=== PATIENT | female | born 1940 | race Caucasian/White ===

== ENCOUNTER 2017-07-13 14:49 | Inpatient (IN) | payer MEDICARE, OTHER, MEDICAID ==
[2017-07-13] MEDS ORDERED: Maalox 30 mL Cup PO PRN (16:26)
[2017-07-13] MEDS ORDERED: Magnesium Hydroxide (MOM) 30 mL UDC PO PRN (16:26)
[2017-07-13 16:30] VITALS: BP 117/59
--- NOTE | 2017-07-13 18:31 | Internal Medicine Prog Note ---
Internal Medicine Objective - Physical Exam Vitals and I&O: Vital Signs Temp 98.7 F 07/13/17 16:19 Pulse 60 07/13/17 16:19 Resp 18 07/13/17 16:19 BP 117/59 07/13/17 16:30 Pulse Ox 94 07/13/17 16:19 Intake & Output 07/12/17 07/13/17 07/13/17 18:59 06:59 18:59 Weight (lbs) 89.902 kg Active Medications: Current Medications Acetaminophen (Tylenol) 650 mg PO Q4HR PRN PRN Reason: Mild Pain / Temp above 100 Stop: 09/11/17 16:25 Al Hydrox/Mg Hydrox/Simethicone (Maalox) 30 ml PO Q4HR PRN PRN Reason: GI DISTRESS Stop: 09/11/17 16:25 Lorazepam (Ativan) 0.5 mg PO Q4HR PRN; Protocol PRN Reason: Agitation Stop: 08/12/17 16:25 Magnesium Hydroxide (Milk Of Magnesia) 30 ml PO HS PRN PRN Reason: Constipation Multivitamins/Vitamin C (Theragran) 1 tab PO DAILY SHE Stop: 09/12/17 08:59 - Procedures Procedures: Procedures Procedure Code Date GROUP PSYCHOTHERAPY 43676 08/24/15 GROUP PSYCHOTHERAPY GZHZZZZ 08/24/15 INDIVID PSYCHOTHERAP NEC 94.39 02/21/09 OTHER GROUP THERAPY 94.44 02/21/09 RECREATIONAL THERAPY 93.81 02/21/09
--- NOTE | 2017-07-14 00:41 | Progress Notes ---
DATE: 07/13/2017 Case was discussed with staff of the patient, reviewed records. The patient continues to be confused, unable to participate in meaningful conversation or make safe plan for self-care, unpredictable and impulsive. She will be transferred today to [facility] and we will continue her on same medication. Thank you very much for allowing me to participate in the care of this most interesting lady. JOB# [id number]
[2017-07-14] MEDS: Oxybutynin Chloride 5 mg ER Tab PO SCH (09:49)
[2017-07-14] MEDS: Multivitamin Tab PO SCH (09:49)
--- NOTE | 2017-07-14 11:04 | Internal Medicine Prog Note ---
Internal Medicine Subjective - Subjective Service Date: 07/14/17 Patient seen and examined:: without staff Patient is:: in bed, confused Per staff patient has:: no adverse event Internal Medicine Objective - Physical Exam Vitals and I&O: Vital Signs Temp 98.2 F 07/14/17 06:19 Pulse 59 07/14/17 06:19 Resp 20 07/14/17 06:19 BP 107/61 07/14/17 06:19 Pulse Ox 96 07/14/17 06:19 Intake & Output 07/13/17 07/14/17 07/14/17 18:59 06:59 18:59 Weight (lbs) 89.902 kg Other: # Voids 3 # Bowel Movements 0 Active Medications: Current Medications Acetaminophen (Tylenol) 650 mg PO Q4HR PRN PRN Reason: Mild Pain / Temp above 100 Stop: 09/11/17 16:25 Al Hydrox/Mg Hydrox/Simethicone (Maalox) 30 ml PO Q4HR PRN PRN Reason: GI DISTRESS Stop: 09/11/17 16:25 Docusate Sodium (Colace) 100 mg PO DAILY [facility] Stop: 09/12/17 08:59 Last Admin: 07/14/17 09:49 Dose: 100 mg Donepezil HCl (Aricept) 10 mg PO DAILY SHE Stop: 09/12/17 08:59 Last Admin: 07/14/17 09:49 Dose: 10 mg Escitalopram Oxalate (Lexapro) 10 mg PO DAILY SHE PRN Reason: Protocol Stop: 09/12/17 08:59 Levetiracetam (Keppra) 500 mg PO BID SHE Stop: 09/12/17 08:59 Last Admin: 07/14/17 09:49 Dose: 500 mg Lorazepam (Ativan) 0.5 mg PO Q4HR PRN; Protocol PRN Reason: Agitation Stop: 08/12/17 16:25 Magnesium Hydroxide (Milk Of Magnesia) 30 ml PO HS PRN PRN Reason: Constipation Mirtazapine (Remeron) 7.5 mg PO HS SHE PRN Reason: Protocol Stop: 09/11/17 20:59 Multivitamins/Vitamin C (Theragran) 1 tab PO DAILY SHE Stop: 09/12/17 08:59 Last Admin: 07/14/17 09:49 Dose: 1 tab Oxybutynin Chloride (Ditropan Xl) 5 mg PO DAILY SHE Stop: 09/12/17 08:59 Last Admin: 07/14/17 09:49 Dose: 5 mg Valproate Sodium (Depakene) 500 mg PO BID SHE PRN Reason: Protocol Stop: 09/12/17 08:59 Zolpidem Tartrate (Ambien) 5 mg PO HS PRN PRN Reason: Insomnia Stop: 09/11/17 18:23 General: demented HEENT: NC/AT, PERRLA, anicteric sclerae, throat clear Neck: Supple Lungs: CTAB, congested Cardiovascular: Normal S1, Normal S2, without murmur Abdomen: non-tender, non-distended Extremities: clear Neurological: no change - Procedures Procedures: Procedures Procedure Code Date GROUP PSYCHOTHERAPY 03481 08/24/15 GROUP PSYCHOTHERAPY GZHZZZZ 08/24/15 INDIVID PSYCHOTHERAP NEC 94.39 02/21/09 OTHER GROUP THERAPY 94.44 02/21/09 RECREATIONAL THERAPY 93.81 02/21/09
--- NOTE | 2017-07-14 12:25 | Psychosocial Evaluation ---
DATE OF SERVICE: 07/13/2017 IDENTIFYING INFORMATION: The patient is a 77-year-old female. CHIEF COMPLAINT: No answer. HISTORY OF PRESENT ILLNESS: The patient was transferred from the medical floor, I saw there. She was admitted there initially though she was sent here because of agitation and psychosis. The patient was seen there by Dr. Alexandra where she was medically cleared, she was referred here. The patient was unable to present a meaningful conversation. She is a well-known patient and was seen before many times with diagnosis of dementia and depression. PAST PSYCHIATRIC HISTORY: Multiple prior admissions to this facility for similar reason. MEDICAL HISTORY: Deferred to Dr. Alexandra. ALLERGIC: SHE IS ALLERGIC TO CIPRO, DIPHENHYDRAMINE, AND PSEUDOEPHEDRINE. Patient also has seizure disorder. MEDICATIONS: She is on Keppra. She is on Lexapro 10 mg a day, Aricept 10 mg daily. She is also on Tylenol 650 mg every 4 hours as needed and Keppra 500 mg twice a day, ____ twice as needed, magnesium 50 mL as needed at bedtime. The patient is also on Remeron 75 mg at bedtime, multivitamin 1 tablet daily. She is on oxybutynin 5 mg daily and Depakote 500 mg twice a day and Ambien 5 mg at bedtime as needed for lack of sleep. FAMILY AND SOCIAL HISTORY: The patient has been staying at [facility]. She has been to many different nursing facilities. MENTAL STATUS EXAMINATION: The patient was appropriately dressed, not very groomed. She was in bed, alert, but she was staring at me and unable to answer any of my questions, demented, confused, easily agitated. She would not answer any of my question regarding suicide, homicide, but she has been tend to get agitated easily. I was unable to test her memory. She is demented with poor memory. Her insight and judgment is impaired. She denies any auditory or visual hallucination or paranoia. 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 MEDICAL DIAGNOSES: Deferred to the medical doctor. Her asset, accepting treatment. Negative poor coping skills. INITIAL TREATMENT PLAN: Continue treatment. Continue medication, group therapy, milieu therapy. ESTIMATED LENGTH OF STAY: 3-7 days. DISCHARGE CRITERIA: Decrease depression, no longer agitated after discharge. [facility]# [id number]
--- NOTE | 2017-07-14 14:28 | History & Physical ---
ADMIT DATE: 07/14/2017 HISTORY OF PRESENT ILLNESS: The patient is a 77-year-old female with long history of dementia, seizure disorder, degenerative joint disease, chronic constipation, admitted to [facility] under Dr. Tillman's service. No fever, no chills, no nausea, no vomiting. PAST MEDICAL HISTORY: Significant for seizure disorder, dementia, degenerative joint disease, chronic constipation. PAST SURGICAL HISTORY: No recent surgery. ALLERGIES: CIPRO, FLOXACIN, DIPHENHYDRAMINE, PSEUDOEPHEDRINE. MEDICATIONS: Follow admission reconciliation. SOCIAL HISTORY: No smoking, alcohol or drug use. FAMILY HISTORY: Noncontributory. REVIEW OF SYSTEMS: RENAL SYSTEM: No history of chronic renal disorder. CARDIOVASCULAR SYSTEM: No coronary artery disease. ENDOCRINE SYSTEM: No diabetes or thyroid problem. GASTROINTESTINAL: No upper or lower GI bleeding. She has history of chronic constipation. NEUROLOGICAL: She has history of seizure disorder, dementia. SKELETOMUSCULAR SYSTEM: She has degenerative joint disease. RESPIRATORY SYSTEM: No asthma. HEMATOLOGIC: No bleeding tendency. GENITOURINARY: No dysuria or hematuria. PHYSICAL EXAMINATION: GENERAL: She is awake, not coherent. VITAL SIGNS: Temperature 98.2, heart rate is 59, blood pressure 107/61. HEENT: Normocephalic. Pupils reacting to light and accommodation. Sclerae clear. NECK: Supple. Negative for lymphadenopathy, JVD or bruit. CHEST: Bilateral normal, rhonchi or wheezing. HEART: S1, S2 normal. No murmur or gallop rhythm. ABDOMEN: Soft, bowel sounds positive. EXTREMITIES: No edema. NEUROLOGIC: She is awake, alert, mildly confused. No focal motor or sensory deficit. Cranial nerves 1-12 intact. ASSESSMENT: 1. Seizure disorder. 2. Degenerative joint disease. 3. Chronic constipation. 4. Dementia. PLAN: The patient in the hospital under Dr. Tillman's service. MEDICAL PROBLEM ADDRESSED DURING HOSPITALIZATION: Dementia. MEDICAL PROBLEMS TO BE ADDRESSED AT DISCHARGE: Seizure disorder, degenerative joint disease. The patient is medically stable for activity. Thank Dr. Tillman for asking me to see your patient. JOB# [id number]
[2017-07-15] MEDS: Multivitamin Tab PO SCH (08:32)
[2017-07-15] MEDS: Oxybutynin Chloride 5 mg ER Tab PO SCH (08:32)
--- NOTE | 2017-07-15 12:33 | Progress Notes ---
DATE: 07/15/2017 Case was discussed with staff of the patient, reviewed records. The patient has been talking nonsense. She has been paranoid, irritable, needing redirection and the staff where she has been talking to herself. When I talked to her, she wanted to know where is the door to the facility. The patient is sort of psychotic. She is unable to participate in a meaningful conversation or make safe plan for self-care. She has been compliant with the medication with no side effects, no sedation, no nausea, no extrapyramidal symptoms. Her lab work showed her low CBC with low red cells, low hematocrit, high MCV and high MCH. The rest are within normal range. PT within normal range. Chemistry panel with low anion gap and high blood chloride and low total protein and low albumin and low AST and ALT and the rest within normal range. Chemistry lipid profile within normal range. ____ is low at 15, repeated. Chemistry panel shows almost the same and ____. Urinalysis showed moderate leukocytic esterase and white cells and bacteria. I will be checking her Depakote level. The patient's current medication is donepezil 10 mg at bedtime, Lexapro 10 mg daily, Keppra 500 mg twice a day and Ativan 0.5 mg if needed, Remeron 7.5 mg twice a day, oxybutynin and multivitamin, Depakote 500 mg twice a day and I do not see that she is taking any antibiotic and I will check with the staff to see if as needed. Left a message to Dr. Alexandra regarding that and we will continue to work with the patient in group therapy, milieu therapy, adjust the medication as needed. JOB# [id number]
--- NOTE | 2017-07-15 20:04 | Internal Medicine Prog Note ---
Internal Medicine Subjective - Subjective Service Date: 07/15/17 Patient seen and examined:: without staff Patient is:: in bed, confused Per staff patient has:: no adverse event Internal Medicine Objective - Results Recent Labs: Laboratory Last Values Valproic Acid 52.4 ug/mL (50.0-100.0) 07/15/17 11:05 - Physical Exam Vitals and I&O: Vital Signs Temp 97.9 F 07/15/17 14:00 Pulse 65 07/15/17 14:00 Resp 20 07/15/17 14:00 BP 120/71 07/15/17 14:00 Pulse Ox 96 07/15/17 14:00 Intake & Output 07/15/17 07/15/17 07/16/17 06:59 18:59 06:59 Intake Total 120 1200 Balance 120 1200 Intake: Oral 120 1200 Other: # Voids 3 Active Medications: Current Medications Acetaminophen (Tylenol) 650 mg PO Q4HR PRN PRN Reason: Mild Pain / Temp above 100 Stop: 09/11/17 16:25 Al Hydrox/Mg Hydrox/Simethicone (Maalox) 30 ml PO Q4HR PRN PRN Reason: GI DISTRESS Stop: 09/11/17 16:25 Docusate Sodium (Colace) 100 mg PO DAILY [facility] Stop: 09/12/17 08:59 Last Admin: 07/15/17 08:32 Dose: 100 mg Donepezil HCl (Aricept) 10 mg PO DAILY [facility] Stop: 09/12/17 08:59 Last Admin: 07/15/17 08:32 Dose: 10 mg Escitalopram Oxalate (Lexapro) 10 mg PO DAILY SHE PRN Reason: Protocol Stop: 09/12/17 08:59 Last Admin: 07/15/17 08:32 Dose: 10 mg Levetiracetam (Keppra) 500 mg PO BID [facility] Stop: 09/12/17 08:59 Last Admin: 07/15/17 16:03 Dose: 500 mg Lorazepam (Ativan) 0.5 mg PO Q4HR PRN; Protocol PRN Reason: Agitation Stop: 08/12/17 16:25 Last Admin: 07/15/17 14:44 Dose: 0.5 mg Magnesium Hydroxide (Milk Of Magnesia) 30 ml PO HS PRN PRN Reason: Constipation Mirtazapine (Remeron) 7.5 mg PO HS SHE PRN Reason: Protocol Stop: 09/11/17 20:59 Multivitamins/Vitamin C (Theragran) 1 tab PO DAILY SHE Stop: 09/12/17 08:59 Last Admin: 07/15/17 08:32 Dose: 1 tab Oxybutynin Chloride (Ditropan Xl) 5 mg PO DAILY SHE Stop: 09/12/17 08:59 Last Admin: 07/15/17 08:32 Dose: 5 mg Valproate Sodium (Depakene) 500 mg PO BID SHE PRN Reason: Protocol Stop: 09/12/17 08:59 Last Admin: 07/15/17 16:03 Dose: 500 mg Zolpidem Tartrate (Ambien) 5 mg PO HS PRN PRN Reason: Insomnia Stop: 09/11/17 18:23 General: demented HEENT: NC/AT, PERRLA, anicteric sclerae, throat clear Neck: Supple Lungs: CTAB, congested Cardiovascular: Normal S1, Normal S2, without murmur Abdomen: non-tender, non-distended Extremities: clear Neurological: no change - Procedures Procedures: Procedures Procedure Code Date GROUP PSYCHOTHERAPY 86520 08/24/15 GROUP PSYCHOTHERAPY GZHZZZZ 08/24/15 INDIVID PSYCHOTHERAP NEC 94.39 02/21/09 OTHER GROUP THERAPY 94.44 02/21/09 RECREATIONAL THERAPY 93.81 02/21/09 Internal Medicine Assmt/Plan - Assessment Assessment: 1.SEIZURE DISORDER. 2.CHRONIC CONSTIPATION. 3.DJD. 4.DEMENTIA. - Plan Plan: CONTONUE ON CURRENT MEDICATION AND DIET.
[2017-07-16] MEDS: Multivitamin Tab PO SCH (08:43)
[2017-07-16] MEDS: Oxybutynin Chloride 5 mg ER Tab PO SCH (08:43)
--- NOTE | 2017-07-16 14:40 | Progress Notes ---
DATE: 07/16/2017 Case was discussed with staff of the patient, reviewed records. The patient continues to be very irritable, talking to herself. Continues to be confused, demented. Continues to be unable to participate in a meaningful conversation or make safe plan for self-care. Continues to have poor insight. She is on Depakote 500 mg twice a day, Remeron 7.5 mg at bedtime, oxybutynin 5 mg daily, Keppra 500 mg twice a day, Aricept 10 mg at bedtime. No side effects of the medication, no sedation, no nausea, no extrapyramidal symptoms. I am giving her more time before adding any antipsychotic hopefully this may have been because of her having urinary infection and I will continue to work with the patient in group therapy, milieu therapy, adjust medication as needed. JOB# [id number]
--- NOTE | 2017-07-16 17:10 | Internal Medicine Prog Note ---
Internal Medicine Subjective - Subjective Service Date: 07/16/17 Patient seen and examined:: without staff Patient is:: in bed, confused Per staff patient has:: no adverse event Internal Medicine Objective - Results Recent Labs: Laboratory Last Values Valproic Acid 52.4 ug/mL (50.0-100.0) 07/15/17 11:05 - Physical Exam Vitals and I&O: Vital Signs Temp 98.2 F 07/16/17 14:00 Pulse 58 07/16/17 14:00 Resp 18 07/16/17 14:00 BP 109/65 07/16/17 14:00 Pulse Ox 95 07/16/17 14:00 Intake & Output 07/15/17 07/16/17 07/16/17 18:59 06:59 18:59 Intake Total 1200 180 Balance 1200 180 Intake: Oral 1200 180 Other: # Voids 2 Active Medications: Current Medications Acetaminophen (Tylenol) 650 mg PO Q4HR PRN PRN Reason: Mild Pain / Temp above 100 Stop: 09/11/17 16:25 Al Hydrox/Mg Hydrox/Simethicone (Maalox) 30 ml PO Q4HR PRN PRN Reason: GI DISTRESS Stop: 09/11/17 16:25 Docusate Sodium (Colace) 100 mg PO DAILY [facility] Stop: 09/12/17 08:59 Last Admin: 07/16/17 08:43 Dose: 100 mg Donepezil HCl (Aricept) 10 mg PO DAILY [facility] Stop: 09/12/17 08:59 Last Admin: 07/16/17 08:43 Dose: 10 mg Escitalopram Oxalate (Lexapro) 10 mg PO DAILY SHE PRN Reason: Protocol Stop: 09/12/17 08:59 Last Admin: 07/16/17 08:43 Dose: 10 mg Levetiracetam (Keppra) 500 mg PO BID [facility] Stop: 09/12/17 08:59 Last Admin: 07/16/17 16:47 Dose: 500 mg Lorazepam (Ativan) 0.5 mg PO Q4HR PRN; Protocol PRN Reason: Agitation Stop: 08/12/17 16:25 Last Admin: 07/15/17 14:44 Dose: 0.5 mg Magnesium Hydroxide (Milk Of Magnesia) 30 ml PO HS PRN PRN Reason: Constipation Mirtazapine (Remeron) 7.5 mg PO HS SHE PRN Reason: Protocol Stop: 09/11/17 20:59 Last Admin: 07/15/17 20:55 Dose: 7.5 mg Multivitamins/Vitamin C (Theragran) 1 tab PO DAILY SHE Stop: 09/12/17 08:59 Last Admin: 07/16/17 08:43 Dose: 1 tab Oxybutynin Chloride (Ditropan Xl) 5 mg PO DAILY SHE Stop: 09/12/17 08:59 Last Admin: 07/16/17 08:43 Dose: 5 mg Valproate Sodium (Depakene) 500 mg PO BID SHE PRN Reason: Protocol Stop: 09/12/17 08:59 Last Admin: 07/16/17 16:47 Dose: 500 mg Zolpidem Tartrate (Ambien) 5 mg PO HS PRN PRN Reason: Insomnia Stop: 09/11/17 18:23 General: demented HEENT: NC/AT, PERRLA, anicteric sclerae, throat clear Neck: Supple Lungs: CTAB, congested Cardiovascular: Normal S1, Normal S2, without murmur Abdomen: non-tender, non-distended Extremities: clear Neurological: no change - Procedures Procedures: Procedures Procedure Code Date GROUP PSYCHOTHERAPY 31018 08/24/15 GROUP PSYCHOTHERAPY GZHZZZZ 08/24/15 INDIVID PSYCHOTHERAP NEC 94.39 02/21/09 OTHER GROUP THERAPY 94.44 02/21/09 RECREATIONAL THERAPY 93.81 02/21/09 Internal Medicine Assmt/Plan - Assessment Assessment: 1.SEIZURE DISORDER. 2.CHRONIC CONSTIPATION. 3.DJD. 4.DEMENTIA. - Plan Plan: CONTONUE ON CURRENT MEDICATION AND DIET.
[2017-07-17] MEDS: Oxybutynin Chloride 5 mg ER Tab PO SCH (08:25)
[2017-07-17] MEDS: Multivitamin Tab PO SCH (08:25)
--- NOTE | 2017-07-17 19:51 | Internal Medicine Prog Note ---
Internal Medicine Subjective - Subjective Service Date: 07/17/17 Patient seen and examined:: without staff Patient is:: in bed, confused Per staff patient has:: no adverse event Internal Medicine Objective - Results Recent Labs: Laboratory Last Values POC Glucose Cancelled 07/16/17 17:32 Valproic Acid 52.4 ug/mL (50.0-100.0) 07/15/17 11:05 - Physical Exam Vitals and I&O: Vital Signs Temp 97.8 F 07/17/17 14:00 Pulse 60 07/17/17 14:00 Resp 19 07/17/17 14:00 BP 122/56 07/17/17 14:00 Pulse Ox 97 07/17/17 14:00 Intake & Output 07/17/17 07/17/17 07/18/17 06:59 18:59 06:59 Intake Total 1200 Balance 1200 Intake: Oral 1200 Other: # Bowel Movements 1 Active Medications: Current Medications Acetaminophen (Tylenol) 650 mg PO Q4HR PRN PRN Reason: Mild Pain / Temp above 100 Stop: 09/11/17 16:25 Al Hydrox/Mg Hydrox/Simethicone (Maalox) 30 ml PO Q4HR PRN PRN Reason: GI DISTRESS Stop: 09/11/17 16:25 Docusate Sodium (Colace) 100 mg PO DAILY [facility] Stop: 09/12/17 08:59 Last Admin: 07/17/17 08:25 Dose: 100 mg Donepezil HCl (Aricept) 10 mg PO DAILY [facility] Stop: 09/12/17 08:59 Last Admin: 07/17/17 08:25 Dose: 10 mg Escitalopram Oxalate (Lexapro) 10 mg PO DAILY SHE PRN Reason: Protocol Stop: 09/12/17 08:59 Last Admin: 07/17/17 08:25 Dose: 10 mg Levetiracetam (Keppra) 500 mg PO BID [facility] Stop: 09/12/17 08:59 Last Admin: 07/17/17 16:31 Dose: 500 mg Lorazepam (Ativan) 0.5 mg PO Q4HR PRN; Protocol PRN Reason: Agitation Stop: 08/12/17 16:25 Last Admin: 07/17/17 16:31 Dose: 0.5 mg Magnesium Hydroxide (Milk Of Magnesia) 30 ml PO HS PRN PRN Reason: Constipation Mirtazapine (Remeron) 7.5 mg PO HS SHE PRN Reason: Protocol Stop: 09/11/17 20:59 Last Admin: 07/16/17 21:27 Dose: 7.5 mg Multivitamins/Vitamin C (Theragran) 1 tab PO DAILY [facility] Stop: 09/12/17 08:59 Last Admin: 07/17/17 08:25 Dose: 1 tab Oxybutynin Chloride (Ditropan Xl) 5 mg PO DAILY [facility] Stop: 09/12/17 08:59 Last Admin: 07/17/17 08:25 Dose: 5 mg Valproate Sodium (Depakene) 500 mg PO BID SHE PRN Reason: Protocol Stop: 09/12/17 08:59 Last Admin: 07/17/17 16:31 Dose: 500 mg Zolpidem Tartrate (Ambien) 5 mg PO HS PRN PRN Reason: Insomnia Stop: 09/11/17 18:23 General: demented HEENT: NC/AT, PERRLA, anicteric sclerae, throat clear Neck: Supple Lungs: CTAB, congested Cardiovascular: Normal S1, Normal S2, without murmur Abdomen: non-tender, non-distended Extremities: clear Neurological: no change - Procedures Procedures: Procedures Procedure Code Date GROUP PSYCHOTHERAPY 51007 08/24/15 GROUP PSYCHOTHERAPY GZHZZZZ 08/24/15 INDIVID PSYCHOTHERAP NEC 94.39 02/21/09 OTHER GROUP THERAPY 94.44 02/21/09 RECREATIONAL THERAPY 93.81 02/21/09 Internal Medicine Assmt/Plan - Assessment Assessment: 1.SEIZURE DISORDER. 2.CHRONIC CONSTIPATION. 3.DJD. 4.DEMENTIA. - Plan Plan: CONTONUE ON CURRENT MEDICATION AND DIET. Nutritional Asmnt/Malnutr-PDOC - Dietary Evaluation Malnutrition Findings (Please click <Entered> for more info): Nutritional Asmnt/Malnutrition Start: 07/17/17 14: 33 Text: Status: Complete Freq: Document 07/17/17 14:33 MAULIKG (Rec: 07/17/17 14:40 LCTAMARAG [id number]) Nutritional Asmnt/Malnutrition Patient General Information Nutritional Screening Moderate Risk Diagnosis psychosis Pertinent Medical Hx/Surgical Hx dementia, seizure disorder, DJD, chronic constipation Subjective Information pt seen sitting in bed, awake and alert, working on lunch tray during the time of visit. Pt reported good appetite, loves all kinds of food. Pt appeared obese, having mild muscle wasting on arms. Current Diet Order/ Nutrition Support [facility] soft chopped Pertinent Medications colace, remeron, MVI, vit C Pertinent Labs no nutrition related labs Nutritional Hx/Data Height 1.6 m Height (Calculated Centimeters) 160.0 Current Weight (lbs) 89.902 kg Weight (Calculated Kilograms) 89.9 Weight (Calculated Grams) 26268.0 [place] Body Weight 115 % [place] Body Weight 172 Body Mass Index (BMI) 35.1 Weight Status Obese GI Symptoms GI Symptoms None Difficult in: None Skin Integrity/Comment: blackened skin tear to left elbow Current %PO Good (75-100%) Estimated Nutritional Goals BEE in Kcals: Adj wt of IBW Calories/Kcals/Kg 25-30 Kcals Calculated 1550-1860kcal based on adj wt 62kg Protein: Adj wt of IBW Protein g/k Protein Calculated 62 Fluid: ml [id number] Nutritional Problem 1. Problem Problem obesity Etiology ?imbalanced energy intake Signs/Symptoms: BMI 35 Malnutrition Alert Protein-Calorie Malnutrition N/A Is there a minimum of two criteria No selected? Query Text:Check all the applicable criteria. A minimum of two criteria are recommended for diagnosis of either severe or non-severe malnutrition. Intervention/Recommendation Comments 1. Continue with current diet as ordered. 2. Monitor PO intake, wt weekly, labs and skin integrity 3. F/U as low risk in 7 days, 07/24 Expected Outcomes/Goals Expected Outcomes/Goals 1. PO intake to meet at least 75% of nutritional needs. 2. Wt stability, skin to remain intact
--- NOTE | 2017-07-18 06:59 | Progress Notes ---
DATE: 07/17/2017 HISTORY OF PRESENT ILLNESS: The patient is currently in the hospital, transferred from the medical floor with agitation, psychosis, unable to present with meaningful conversation, disoriented, confused, states that she does not know where she is or why she is here, states she is here because of "I am here to learn," disoriented. Dr. Tillman has been seeing the patient since her admission and noted to be irritable, talking to self, confused, disoriented. MEDICATIONS: Noted including dosages and frequencies. No side effects noted. ASSESSMENT: The patient remains confused, disoriented, concerns about impulsivity. PLAN: We will continue to monitor. Continue current medication regimen given recent dose changes by Dr. Tillman. We will monitor and follow up. [facility]# [id number]
[2017-07-18] MEDS: Oxybutynin Chloride 5 mg ER Tab PO SCH (09:10)
[2017-07-18] MEDS: Multivitamin Tab PO SCH (09:10)
--- NOTE | 2017-07-18 12:55 | Internal Medicine Prog Note ---
Internal Medicine Subjective - Subjective Service Date: 07/18/17 Patient seen and examined:: without staff Patient is:: in bed, confused Per staff patient has:: no adverse event Internal Medicine Objective - Results Recent Labs: Laboratory Last Values POC Glucose Cancelled 07/16/17 17:32 Valproic Acid 52.4 ug/mL (50.0-100.0) 07/15/17 11:05 - Physical Exam Vitals and I&O: Vital Signs Temp 98.1 F 07/17/17 20:13 Pulse 52 07/18/17 11:27 Resp 19 07/18/17 11:27 BP 121/51 07/17/17 20:13 Pulse Ox 97 07/17/17 20:13 Intake & Output 07/17/17 07/18/17 07/18/17 18:59 06:59 18:59 Intake Total 1200 240 Balance 1200 240 Intake: Oral 1200 240 Other: # Voids 1 # Bowel Movements 1 Stool Characteristics Soft Formed Active Medications: Current Medications Acetaminophen (Tylenol) 650 mg PO Q4HR PRN PRN Reason: Mild Pain / Temp above 100 Stop: 09/11/17 16:25 Al Hydrox/Mg Hydrox/Simethicone (Maalox) 30 ml PO Q4HR PRN PRN Reason: GI DISTRESS Stop: 09/11/17 16:25 Docusate Sodium (Colace) 100 mg PO DAILY [facility] Stop: 09/12/17 08:59 Last Admin: 07/18/17 09:10 Dose: 100 mg Donepezil HCl (Aricept) 10 mg PO DAILY [facility] Stop: 09/12/17 08:59 Last Admin: 07/18/17 09:09 Dose: 10 mg Escitalopram Oxalate (Lexapro) 10 mg PO DAILY SHE PRN Reason: Protocol Stop: 09/12/17 08:59 Last Admin: 07/18/17 09:10 Dose: 10 mg Levetiracetam (Keppra) 500 mg PO BID [facility] Stop: 09/12/17 08:59 Last Admin: 07/18/17 09:09 Dose: 500 mg Lorazepam (Ativan) 0.5 mg PO Q4HR PRN; Protocol PRN Reason: Agitation Stop: 08/12/17 16:25 Last Admin: 07/17/17 20:32 Dose: 0.5 mg Magnesium Hydroxide (Milk Of Magnesia) 30 ml PO HS PRN PRN Reason: Constipation Mirtazapine (Remeron) 7.5 mg PO HS SHE PRN Reason: Protocol Stop: 09/11/17 20:59 Last Admin: 07/17/17 20:33 Dose: 7.5 mg Multivitamins/Vitamin C (Theragran) 1 tab PO DAILY SHE Stop: 09/12/17 08:59 Last Admin: 07/18/17 09:10 Dose: Not Given Oxybutynin Chloride (Ditropan Xl) 5 mg PO DAILY [facility] Stop: 09/12/17 08:59 Last Admin: 07/18/17 09:10 Dose: 5 mg Valproate Sodium (Depakene) 500 mg PO BID SHE PRN Reason: Protocol Stop: 09/12/17 08:59 Last Admin: 07/18/17 09:09 Dose: 500 mg Zolpidem Tartrate (Ambien) 5 mg PO HS PRN PRN Reason: Insomnia Stop: 09/11/17 18:23 Last Admin: 07/17/17 20:33 Dose: 5 mg General: demented HEENT: NC/AT, PERRLA, anicteric sclerae, throat clear Neck: Supple Lungs: CTAB, congested Cardiovascular: Normal S1, Normal S2, without murmur Abdomen: non-tender, non-distended Extremities: clear Neurological: no change - Procedures Procedures: Procedures Procedure Code Date GROUP PSYCHOTHERAPY 66901 08/24/15 GROUP PSYCHOTHERAPY GZHZZZZ 08/24/15 INDIVID PSYCHOTHERAP NEC 94.39 02/21/09 OTHER GROUP THERAPY 94.44 02/21/09 RECREATIONAL THERAPY 93.81 02/21/09 Internal Medicine Assmt/Plan - Assessment Assessment: 1.SEIZURE DISORDER. 2.CHRONIC CONSTIPATION. 3.DJD. 4.DEMENTIA. - Plan Plan: CONTONUE ON CURRENT MEDICATION AND DIET. Nutritional Asmnt/Malnutr-PDOC - Dietary Evaluation Malnutrition Findings (Please click <Entered> for more info): Nutritional Asmnt/Malnutrition Start: 07/17/17 14: 33 Text: Status: Complete Freq: Document 07/17/17 14:33 MAULIKG (Rec: 07/17/17 14:40 LCHENG [email or web address]) Nutritional Asmnt/Malnutrition Patient General Information Nutritional Screening Moderate Risk Diagnosis psychosis Pertinent Medical Hx/Surgical Hx dementia, seizure disorder, DJD, chronic constipation Subjective Information pt seen sitting in bed, awake and alert, working on lunch tray during the time of visit. Pt reported good appetite, loves all kinds of food. Pt appeared obese, having mild muscle wasting on arms. Current Diet Order/ Nutrition Support [facility] soft chopped Pertinent Medications colace, remeron, MVI, vit C Pertinent Labs no nutrition related labs Nutritional Hx/Data Height 1.6 m Height (Calculated Centimeters) 160.0 Current Weight (lbs) 89.902 kg Weight (Calculated Kilograms) 89.9 Weight (Calculated Grams) 93559.0 [place] Body Weight 115 % [place] Body Weight 172 Body Mass Index (BMI) 35.1 Weight Status Obese GI Symptoms GI Symptoms None Difficult in: None Skin Integrity/Comment: blackened skin tear to left elbow Current %PO Good (75-100%) Estimated Nutritional Goals BEE in Kcals: Adj wt of IBW Calories/Kcals/Kg 25-30 Kcals Calculated 1550-1860kcal based on adj wt 62kg Protein: Adj wt of IBW Protein g/k Protein Calculated 62 Fluid: ml 8046-0363 Nutritional Problem 1. Problem Problem obesity Etiology ?imbalanced energy intake Signs/Symptoms: BMI 35 Malnutrition Alert Protein-Calorie Malnutrition N/A Is there a minimum of two criteria No selected? Query Text:Check all the applicable criteria. A minimum of two criteria are recommended for diagnosis of either severe or non-severe malnutrition. Intervention/Recommendation Comments 1. Continue with current diet as ordered. 2. Monitor PO intake, wt weekly, labs and skin integrity 3. F/U as low risk in 7 days, 07/24 Expected Outcomes/Goals Expected Outcomes/Goals 1. PO intake to meet at least 75% of nutritional needs. 2. Wt stability, skin to remain intact
--- NOTE | 2017-07-19 05:38 | Progress Notes ---
DATE: 07/18/[address] Tillman. SUBJECTIVE: The patient was seen and evaluated. The patient's chart reviewed. She is a 77-year-old female. Nursing staff reported the patient is selectively mute, disorganized, and easily agitated. Today, on [id number] evaluation, she still presents disorganized, disoriented, and talking to herself. MENTAL STATUS EXAMINATION: Disorganized, talking to herself. ASSESSMENT AND PLAN: The patient is a 77-year-old female who continues to be disorganized, confused, disoriented, and talking to herself. We will continue with the current medication regimen of Lexapro 10 mg a day, benazepril 10 mg a day, mirtazapine 7.5 mg recently adjusted. The patient has extensive history of depression. We will continue monitoring and evaluating as she is unable to formulate safe plan outside the structured environment. JOB# [id number]
[2017-07-19] MEDS: Oxybutynin Chloride 5 mg ER Tab PO SCH (08:52)
[2017-07-19] MEDS: Multivitamin Tab PO SCH (08:52)
--- NOTE | 2017-07-19 19:31 | Internal Medicine Prog Note ---
Internal Medicine Subjective - Subjective Service Date: 07/19/17 Patient seen and examined:: with staff Patient is:: in bed, confused Per staff patient has:: no adverse event Internal Medicine Objective - Results Recent Labs: Laboratory Last Values POC Glucose Cancelled 07/16/17 17:32 Valproic Acid 52.4 ug/mL (50.0-100.0) 07/15/17 11:05 - Physical Exam Vitals and I&O: Vital Signs Temp 98.2 F 07/18/17 20:18 Pulse 52 07/19/17 11:01 Resp 19 07/19/17 11:01 BP 122/66 07/18/17 20:18 Pulse Ox 96 07/18/17 20:18 Intake & Output 07/19/17 07/19/17 07/20/17 06:59 18:59 06:59 Intake Total 240 700 Balance 240 700 Intake: Oral 240 700 Other: # Voids 1 3 # Bowel Movements 1 Active Medications: Current Medications Acetaminophen (Tylenol) 650 mg PO Q4HR PRN PRN Reason: Mild Pain / Temp above 100 Stop: 09/11/17 16:25 Al Hydrox/Mg Hydrox/Simethicone (Maalox) 30 ml PO Q4HR PRN PRN Reason: GI DISTRESS Stop: 09/11/17 16:25 Docusate Sodium (Colace) 100 mg PO DAILY [facility] Stop: 09/12/17 08:59 Last Admin: 07/19/17 08:52 Dose: 100 mg Donepezil HCl (Aricept) 10 mg PO DAILY [facility] Stop: 09/12/17 08:59 Last Admin: 07/19/17 08:52 Dose: 10 mg Escitalopram Oxalate (Lexapro) 10 mg PO DAILY SHE PRN Reason: Protocol Stop: 09/12/17 08:59 Last Admin: 07/19/17 08:52 Dose: 10 mg Levetiracetam (Keppra) 500 mg PO BID [facility] Stop: 09/12/17 08:59 Last Admin: 07/19/17 08:52 Dose: 500 mg Lorazepam (Ativan) 0.5 mg PO Q4HR PRN; Protocol PRN Reason: Agitation Stop: 08/12/17 16:25 Last Admin: 07/17/17 20:32 Dose: 0.5 mg Magnesium Hydroxide (Milk Of Magnesia) 30 ml PO HS PRN PRN Reason: Constipation Mirtazapine (Remeron) 7.5 mg PO HS SHE PRN Reason: Protocol Stop: 09/11/17 20:59 Last Admin: 07/18/17 20:26 Dose: 7.5 mg Multivitamins/Vitamin C (Theragran) 1 tab PO DAILY [facility] Stop: 09/12/17 08:59 Last Admin: 07/19/17 08:52 Dose: 1 tab Oxybutynin Chloride (Ditropan Xl) 5 mg PO DAILY [facility] Stop: 09/12/17 08:59 Last Admin: 07/19/17 08:52 Dose: 5 mg Valproate Sodium (Depakene) 500 mg PO BID SHE PRN Reason: Protocol Stop: 09/12/17 08:59 Last Admin: 07/19/17 08:52 Dose: 500 mg Zolpidem Tartrate (Ambien) 5 mg PO HS PRN PRN Reason: Insomnia Stop: 09/11/17 18:23 Last Admin: 07/18/17 20:27 Dose: 5 mg General: demented HEENT: NC/AT, PERRLA, anicteric sclerae, throat clear Neck: Supple Lungs: CTAB, congested Cardiovascular: Normal S1, Normal S2, without murmur Abdomen: non-tender, non-distended Extremities: clear Neurological: no change - Procedures Procedures: Procedures Procedure Code Date GROUP PSYCHOTHERAPY 17629 08/24/15 GROUP PSYCHOTHERAPY GZHZZZZ 08/24/15 INDIVID PSYCHOTHERAP NEC 94.39 02/21/09 OTHER GROUP THERAPY 94.44 02/21/09 RECREATIONAL THERAPY 93.81 02/21/09 Internal Medicine Assmt/Plan - Assessment Assessment: 1.SEIZURE DISORDER. 2.CHRONIC CONSTIPATION. 3.DJD. 4.DEMENTIA. - Plan Plan: CONTONUE ON CURRENT MEDICATION AND DIET. Nutritional Asmnt/Malnutr-PDOC - Dietary Evaluation Malnutrition Findings (Please click <Entered> for more info): Nutritional Asmnt/Malnutrition Start: 07/17/17 14: 33 Text: Status: Complete Freq: Document 07/17/17 14:33 TAMARA (Rec: 07/17/17 14:40 TAMARA [email or web address]) Nutritional Asmnt/Malnutrition Patient General Information Nutritional Screening Moderate Risk Diagnosis psychosis Pertinent Medical Hx/Surgical Hx dementia, seizure disorder, DJD, chronic constipation Subjective Information pt seen sitting in bed, awake and alert, working on lunch tray during the time of visit. Pt reported good appetite, loves all kinds of food. Pt appeared obese, having mild muscle wasting on arms. Current Diet Order/ Nutrition Support [facility] soft chopped Pertinent Medications colace, remeron, MVI, vit C Pertinent Labs no nutrition related labs Nutritional Hx/Data Height 1.6 m Height (Calculated Centimeters) 160.0 Current Weight (lbs) 89.902 kg Weight (Calculated Kilograms) 89.9 Weight (Calculated Grams) 54613.0 [place] Body Weight 115 % [place] Body Weight 172 Body Mass Index (BMI) 35.1 Weight Status Obese GI Symptoms GI Symptoms None Difficult in: None Skin Integrity/Comment: blackened skin tear to left elbow Current %PO Good (75-100%) Estimated Nutritional Goals BEE in Kcals: Adj wt of IBW Calories/Kcals/Kg 25-30 Kcals Calculated 1550-1860kcal based on adj wt 62kg Protein: Adj wt of IBW Protein g/k Protein Calculated 62 Fluid: ml 4429-9145 Nutritional Problem 1. Problem Problem obesity Etiology ?imbalanced energy intake Signs/Symptoms: BMI 35 Malnutrition Alert Protein-Calorie Malnutrition N/A Is there a minimum of two criteria No selected? Query Text:Check all the applicable criteria. A minimum of two criteria are recommended for diagnosis of either severe or non-severe malnutrition. Intervention/Recommendation Comments 1. Continue with current diet as ordered. 2. Monitor PO intake, wt weekly, labs and skin integrity 3. F/U as low risk in 7 days, 07/24 Expected Outcomes/Goals Expected Outcomes/Goals 1. PO intake to meet at least 75% of nutritional needs. 2. Wt stability, skin to remain intact
--- NOTE | 2017-07-20 03:20 | Progress Notes ---
DATE: This is Dr. Can covering for Dr. Tillman. SUBJECTIVE: Overnight nursing staff reports that she mostly been in her room isolated. Today on [id number] evaluation, the patient is selectively mute, does not participate much in conversation, mostly just stares. MENTAL STATUS EXAMINATION: Disorganized, observed to be thought blocking, limited insight, judgment, and impulse control. ASSESSMENT AND PLAN: This is a 77-year-old female, disorganized, confused, disoriented, talking to herself, unable to formulate a safe plan outside of structured environment due to the patient still distraught self. We will continue with the current medications, which include Lexapro, benazepril, mirtazapine, Aricept at 10 mg, Depakote to target the patient's labile behavior that comes from the underlying dementia. JOB# [id number]
[2017-07-20] MEDS: Oxybutynin Chloride 5 mg ER Tab PO SCH (09:39)
[2017-07-20] MEDS: Multivitamin Tab PO SCH (09:40)
--- NOTE | 2017-07-20 19:21 | Internal Medicine Prog Note ---
Internal Medicine Subjective - Subjective Service Date: 07/20/17 Patient seen and examined:: with staff (SHE FEELS WELL) Patient is:: in bed, confused Per staff patient has:: no adverse event Internal Medicine Objective - Results Recent Labs: Laboratory Last Values POC Glucose Cancelled 07/16/17 17:32 Valproic Acid 63.6 ug/mL (50.0-100.0) 07/20/17 13:45 - Physical Exam Vitals and I&O: Vital Signs Temp 97.4 F 07/20/17 14:00 Pulse 72 07/20/17 14:00 Resp 20 07/20/17 14:00 BP 102/58 07/20/17 14:00 Pulse Ox 97 07/20/17 14:00 Intake & Output 07/20/17 07/20/17 07/21/17 06:59 18:59 06:59 Intake Total 240 900 Balance 240 900 Intake: Oral 240 900 Other: # Voids 1 4 # Bowel Movements 1 0 Active Medications: Current Medications Acetaminophen (Tylenol) 650 mg PO Q4HR PRN PRN Reason: Mild Pain / Temp above 100 Stop: 09/11/17 16:25 Al Hydrox/Mg Hydrox/Simethicone (Maalox) 30 ml PO Q4HR PRN PRN Reason: GI DISTRESS Stop: 09/11/17 16:25 Docusate Sodium (Colace) 100 mg PO DAILY [facility] Stop: 09/12/17 08:59 Last Admin: 07/20/17 09:40 Dose: 100 mg Donepezil HCl (Aricept) 10 mg PO DAILY [facility] Stop: 09/12/17 08:59 Last Admin: 07/20/17 09:40 Dose: 10 mg Escitalopram Oxalate (Lexapro) 10 mg PO DAILY SHE PRN Reason: Protocol Stop: 09/12/17 08:59 Last Admin: 07/20/17 09:39 Dose: 10 mg Levetiracetam (Keppra) 500 mg PO BID [facility] Stop: 09/12/17 08:59 Last Admin: 07/20/17 16:38 Dose: 500 mg Lorazepam (Ativan) 0.5 mg PO Q4HR PRN; Protocol PRN Reason: Agitation Stop: 08/12/17 16:25 Last Admin: 07/20/17 16:38 Dose: 0.5 mg Magnesium Hydroxide (Milk Of Magnesia) 30 ml PO HS PRN PRN Reason: Constipation Mirtazapine (Remeron) 7.5 mg PO HS SHE PRN Reason: Protocol Stop: 09/11/17 20:59 Last Admin: 07/19/17 21:13 Dose: 7.5 mg Multivitamins/Vitamin C (Theragran) 1 tab PO DAILY [facility] Stop: 09/12/17 08:59 Last Admin: 07/20/17 09:40 Dose: 1 tab Oxybutynin Chloride (Ditropan Xl) 5 mg PO DAILY [facility] Stop: 09/12/17 08:59 Last Admin: 07/20/17 09:39 Dose: 5 mg Valproate Sodium (Depakene) 500 mg PO BID SHE PRN Reason: Protocol Stop: 09/12/17 08:59 Last Admin: 07/20/17 16:38 Dose: 500 mg Zolpidem Tartrate (Ambien) 5 mg PO HS PRN PRN Reason: Insomnia Stop: 09/11/17 18:23 Last Admin: 07/19/17 21:13 Dose: 5 mg General: demented HEENT: NC/AT, PERRLA, anicteric sclerae, throat clear Neck: Supple Lungs: CTAB, congested Cardiovascular: Normal S1, Normal S2, without murmur Abdomen: non-tender, non-distended Extremities: clear Neurological: no change - Procedures Procedures: Procedures Procedure Code Date GROUP PSYCHOTHERAPY 53619 08/24/15 GROUP PSYCHOTHERAPY GZHZZZZ 08/24/15 INDIVID PSYCHOTHERAP NEC 94.39 02/21/09 OTHER GROUP THERAPY 94.44 02/21/09 RECREATIONAL THERAPY 93.81 02/21/09 Internal Medicine Assmt/Plan - Assessment Assessment: 1.SEIZURE DISORDER. 2.CHRONIC CONSTIPATION. 3.DJD. 4.DEMENTIA. - Plan Plan: CONTONUE ON CURRENT MEDICATION AND DIET. Nutritional Asmnt/Malnutr-PDOC - Dietary Evaluation Malnutrition Findings (Please click <Entered> for more info): Nutritional Asmnt/Malnutrition Start: 07/17/17 14: 33 Text: Status: Complete Freq: Document 07/17/17 14:33 JERSEY (Rec: 07/17/17 14:40 JERSEY [email or web address]) Nutritional Asmnt/Malnutrition Patient General Information Nutritional Screening Moderate Risk Diagnosis psychosis Pertinent Medical Hx/Surgical Hx dementia, seizure disorder, DJD, chronic constipation Subjective Information pt seen sitting in bed, awake and alert, working on lunch tray during the time of visit. Pt reported good appetite, loves all kinds of food. Pt appeared obese, having mild muscle wasting on arms. Current Diet Order/ Nutrition Support [facility] soft chopped Pertinent Medications colace, remeron, MVI, vit C Pertinent Labs no nutrition related labs Nutritional Hx/Data Height 1.6 m Height (Calculated Centimeters) 160.0 Current Weight (lbs) 89.902 kg Weight (Calculated Kilograms) 89.9 Weight (Calculated Grams) 90739.0 [place] Body Weight 115 % [place] Body Weight 172 Body Mass Index (BMI) 35.1 Weight Status Obese GI Symptoms GI Symptoms None Difficult in: None Skin Integrity/Comment: blackened skin tear to left elbow Current %PO Good (75-100%) Estimated Nutritional Goals BEE in Kcals: Adj wt of IBW Calories/Kcals/Kg 25-30 Kcals Calculated 1550-1860kcal based on adj wt 62kg Protein: Adj wt of IBW Protein g/k Protein Calculated 62 Fluid: ml 1381-8905 Nutritional Problem 1. Problem Problem obesity Etiology ?imbalanced energy intake Signs/Symptoms: BMI 35 Malnutrition Alert Protein-Calorie Malnutrition N/A Is there a minimum of two criteria No selected? Query Text:Check all the applicable criteria. A minimum of two criteria are recommended for diagnosis of either severe or non-severe malnutrition. Intervention/Recommendation Comments 1. Continue with current diet as ordered. 2. Monitor PO intake, wt weekly, labs and skin integrity 3. F/U as low risk in 7 days, 07/24 Expected Outcomes/Goals Expected Outcomes/Goals 1. PO intake to meet at least 75% of nutritional needs. 2. Wt stability, skin to remain intact
--- NOTE | 2017-07-20 22:48 | Progress Notes ---
DATE: 07/20/2017 Case was discussed with staff of the patient and reviewed records. The patient continues to appear to be very depressed, confused, continues to appear to have no energy, very tired, unable to participate in a meaningful conversation or make safe plan for self-care. Continues to have poor insight about the whole process, unable to take care of herself. I will be checking her Depakote level. No side effects with the medication, no sedation, no nausea, no extrapyramidal symptoms. We will continue to work with the patient in group therapy, milieu therapy, and adjust medications as needed. JOB# [id number]
[2017-07-21] MEDS: Multivitamin Tab PO SCH (09:02)
[2017-07-21] MEDS: Oxybutynin Chloride 5 mg ER Tab PO SCH (09:02)
--- NOTE | 2017-07-21 15:10 | Progress Notes ---
DATE: 07/21/2017 Case was discussed with staff of the patient. The patient continues to be very confused, feeling very tired. She is demented. She continues to not be doing well. Continues to appear to be depressed, overwhelmed, and easily agitated. She needs continuously redirection. She needs help with her ADLs, unable to participate in meaningful conversation or make safe plan for self-care. No side effects with the medication, no sedation, no nausea and we are checking her Depakote level. We will continue to work with the patient in group therapy, milieu therapy, and adjust medication as needed. JOB# [id number]
--- NOTE | 2017-07-21 20:16 | Internal Medicine Prog Note ---
Internal Medicine Subjective - Subjective Service Date: 07/21/17 Patient seen and examined:: with staff (SHE IS DOING BETTER.) Patient is:: in bed, confused Per staff patient has:: no adverse event Internal Medicine Objective - Results Recent Labs: Laboratory Last Values POC Glucose Cancelled 07/16/17 17:32 Valproic Acid 63.6 ug/mL (50.0-100.0) 07/20/17 13:45 - Physical Exam Vitals and I&O: Vital Signs Temp 97.9 F 07/21/17 20:06 Pulse 66 07/21/17 20:06 Resp 18 07/21/17 20:06 BP 134/70 07/21/17 20:06 Pulse Ox 95 07/21/17 18:08 Intake & Output 07/21/17 07/21/17 07/22/17 06:59 18:59 06:59 Intake Total 240 Balance 240 Intake: Oral 240 Other: # Voids 1 Active Medications: Current Medications Acetaminophen (Tylenol) 650 mg PO Q4HR PRN PRN Reason: Mild Pain / Temp above 100 Stop: 09/11/17 16:25 Al Hydrox/Mg Hydrox/Simethicone (Maalox) 30 ml PO Q4HR PRN PRN Reason: GI DISTRESS Stop: 09/11/17 16:25 Docusate Sodium (Colace) 100 mg PO DAILY [facility] Stop: 09/12/17 08:59 Last Admin: 07/21/17 09:03 Dose: 100 mg Donepezil HCl (Aricept) 10 mg PO DAILY [facility] Stop: 09/12/17 08:59 Last Admin: 07/21/17 09:03 Dose: 10 mg Escitalopram Oxalate (Lexapro) 10 mg PO DAILY SHE PRN Reason: Protocol Stop: 09/12/17 08:59 Last Admin: 07/21/17 09:02 Dose: 10 mg Levetiracetam (Keppra) 500 mg PO BID [facility] Stop: 09/12/17 08:59 Last Admin: 07/21/17 17:13 Dose: 500 mg Lorazepam (Ativan) 0.5 mg PO Q4HR PRN; Protocol PRN Reason: Agitation Stop: 08/12/17 16:25 Last Admin: 07/21/17 09:03 Dose: 0.5 mg Magnesium Hydroxide (Milk Of Magnesia) 30 ml PO HS PRN PRN Reason: Constipation Mirtazapine (Remeron) 7.5 mg PO HS SHE PRN Reason: Protocol Stop: 09/11/17 20:59 Last Admin: 07/20/17 20:55 Dose: 7.5 mg Multivitamins/Vitamin C (Theragran) 1 tab PO DAILY [facility] Stop: 09/12/17 08:59 Last Admin: 07/21/17 09:02 Dose: 1 tab Oxybutynin Chloride (Ditropan Xl) 5 mg PO DAILY [facility] Stop: 09/12/17 08:59 Last Admin: 07/21/17 09:02 Dose: 5 mg Valproate Sodium (Depakene) 500 mg PO BID SHE PRN Reason: Protocol Stop: 09/12/17 08:59 Last Admin: 07/21/17 17:12 Dose: 500 mg General: demented HEENT: NC/AT, PERRLA, anicteric sclerae, throat clear Neck: Supple Lungs: CTAB, congested Cardiovascular: Normal S1, Normal S2, without murmur Abdomen: non-tender, non-distended Extremities: clear Neurological: no change - Procedures Procedures: Procedures Procedure Code Date GROUP PSYCHOTHERAPY 27016 08/24/15 GROUP PSYCHOTHERAPY GZHZZZZ 08/24/15 INDIVID PSYCHOTHERAP NEC 94.39 02/21/09 OTHER GROUP THERAPY 94.44 02/21/09 RECREATIONAL THERAPY 93.81 02/21/09 Internal Medicine Assmt/Plan - Assessment Assessment: 1.SEIZURE DISORDER. 2.CHRONIC CONSTIPATION. 3.DJD. 4.DEMENTIA. - Plan Plan: CONTONUE ON CURRENT MEDICATION AND DIET. Nutritional Asmnt/Malnutr-PDOC - Dietary Evaluation Malnutrition Findings (Please click <Entered> for more info): Nutritional Asmnt/Malnutrition Start: 07/17/17 14: 33 Text: Status: Complete Freq: Document 07/17/17 14:33 LCTAMARAG (Rec: 07/17/17 14:40 LCKENNETH [email or web address]) Nutritional Asmnt/Malnutrition Patient General Information Nutritional Screening Moderate Risk Diagnosis psychosis Pertinent Medical Hx/Surgical Hx dementia, seizure disorder, DJD, chronic constipation Subjective Information pt seen sitting in bed, awake and alert, working on lunch tray during the time of visit. Pt reported good appetite, loves all kinds of food. Pt appeared obese, having mild muscle wasting on arms. Current Diet Order/ Nutrition Support [facility] soft chopped Pertinent Medications colace, remeron, MVI, vit C Pertinent Labs no nutrition related labs Nutritional Hx/Data Height 1.6 m Height (Calculated Centimeters) 160.0 Current Weight (lbs) 89.902 kg Weight (Calculated Kilograms) 89.9 Weight (Calculated Grams) 70650.0 [place] Body Weight 115 % [place] Body Weight 172 Body Mass Index (BMI) 35.1 Weight Status Obese GI Symptoms GI Symptoms None Difficult in: None Skin Integrity/Comment: blackened skin tear to left elbow Current %PO Good (75-100%) Estimated Nutritional Goals BEE in Kcals: Adj wt of IBW Calories/Kcals/Kg 25-30 Kcals Calculated 1550-1860kcal based on adj wt 62kg Protein: Adj wt of IBW Protein g/k Protein Calculated 62 Fluid: ml 9065-1244 Nutritional Problem 1. Problem Problem obesity Etiology ?imbalanced energy intake Signs/Symptoms: BMI 35 Malnutrition Alert Protein-Calorie Malnutrition N/A Is there a minimum of two criteria No selected? Query Text:Check all the applicable criteria. A minimum of two criteria are recommended for diagnosis of either severe or non-severe malnutrition. Intervention/Recommendation Comments 1. Continue with current diet as ordered. 2. Monitor PO intake, wt weekly, labs and skin integrity 3. F/U as low risk in 7 days, 07/24 Expected Outcomes/Goals Expected Outcomes/Goals 1. PO intake to meet at least 75% of nutritional needs. 2. Wt stability, skin to remain intact
[2017-07-22] MEDS: Oxybutynin Chloride 5 mg ER Tab PO SCH (10:20)
[2017-07-22] MEDS: Multivitamin Tab PO SCH (10:21)
--- NOTE | 2017-07-22 15:14 | Progress Notes ---
DATE: 07/22/2017 Case was discussed with staff of the patient, reviewed records. The patient continues to have poor insight, continues to be unpredictable, impulsive, needing redirection. Continues to have poor energy, hardly can say anything though she has episodes history of agitation, irritability. She is demented, confused. She is on Aricept 10 mg at bedtime, Lexapro 10 mg daily, Keppra 500 mg twice a day and Remeron 7.5 mg twice at bedtime, oxybutynin 5 mg daily, multivitamin, Depakote 500 mg twice a day. She is unable to tell me whether she has been vaccinated or not. Unable to make safe plan for self-care. She used to be on Provigil when [facility], so I will see this if it is available on the pharmacy here, so it does not seem like it is available, so I will be initiating Provigil on the patient as she used to be on it, ordered by neurologist before for her neurological disorder, and we will continue too. The patient is a nonsmoker and will continue to have patient in group therapy, milieu therapy, adjust medication as needed. JOB# [id number]
--- NOTE | 2017-07-22 19:31 | Internal Medicine Prog Note ---
Internal Medicine Subjective - Subjective Service Date: 07/22/17 Patient seen and examined:: with staff Patient is:: in bed, confused Per staff patient has:: no adverse event Internal Medicine Objective - Results Recent Labs: Laboratory Last Values POC Glucose Cancelled 07/16/17 17:32 Valproic Acid 63.6 ug/mL (50.0-100.0) 07/20/17 13:45 - Physical Exam Vitals and I&O: Vital Signs Temp 98.2 F 07/22/17 15:47 Pulse 62 07/22/17 15:47 Resp 18 07/22/17 15:47 BP 123/74 07/22/17 15:47 Pulse Ox 98 07/22/17 15:47 Intake & Output 07/22/17 07/22/17 07/23/17 06:59 18:59 06:59 Intake Total 240 2200 Balance 240 2200 Intake: Oral 240 2200 Other: # Voids 1 3 # Bowel Movements 1 Active Medications: Current Medications Acetaminophen (Tylenol) 650 mg PO Q4HR PRN PRN Reason: Mild Pain / Temp above 100 Stop: 09/11/17 16:25 Al Hydrox/Mg Hydrox/Simethicone (Maalox) 30 ml PO Q4HR PRN PRN Reason: GI DISTRESS Stop: 09/11/17 16:25 Docusate Sodium (Colace) [address] [facility] Stop: 09/12/17 08:59 Last Admin: 07/22/17 10:21 Dose: 100 mg Donepezil HCl (Aricept) [address] [facility] Stop: 09/12/17 08:59 Last Admin: 07/22/17 10:21 Dose: 10 mg Escitalopram Oxalate (Lexapro) 10 mg PO DAILY SHE PRN Reason: Protocol Stop: 09/12/17 08:59 Last Admin: 07/22/17 10:21 Dose: 10 mg Levetiracetam (Keppra) [address] [facility] Stop: 09/12/17 08:59 Last Admin: 07/22/17 18:45 Dose: Not Given Lorazepam (Ativan) 0.5 mg PO Q4HR PRN; Protocol PRN Reason: Agitation Stop: 08/12/17 16:25 Last Admin: 07/21/17 09:03 Dose: 0.5 mg Magnesium Hydroxide (Milk Of Magnesia) 30 ml PO HS PRN PRN Reason: Constipation Mirtazapine (Remeron) 7.5 mg PO HS SHE PRN Reason: Protocol Stop: 09/11/17 20:59 Last Admin: 07/21/17 21:20 Dose: 7.5 mg Modafinil (Provigil) 100 mg PO DAILY [facility] PRN Reason: Protocol Stop: 09/20/17 08:59 Last Admin: 07/22/17 10:21 Dose: 100 mg Multivitamins/Vitamin C (Theragran) 1 tab PO DAILY [facility] Stop: 09/12/17 08:59 Last Admin: 07/22/17 10:21 Dose: 1 tab Oxybutynin Chloride (Ditropan Xl) 5 mg PO DAILY [facility] Stop: 09/12/17 08:59 Last Admin: 07/22/17 10:20 Dose: 5 mg Valproate Sodium (Depakene) 500 mg PO BID SHE PRN Reason: Protocol Stop: 09/12/17 08:59 Last Admin: 07/22/17 18:45 Dose: Not Given General: demented HEENT: NC/AT, PERRLA, anicteric sclerae, throat clear Neck: Supple Lungs: CTAB, congested Cardiovascular: Normal S1, Normal S2, without murmur Abdomen: non-tender, non-distended Extremities: clear Neurological: no change - Procedures Procedures: Procedures Procedure Code Date GROUP PSYCHOTHERAPY 50843 08/24/15 GROUP PSYCHOTHERAPY GZHZZZZ 08/24/15 INDIVID PSYCHOTHERAP NEC 94.39 02/21/09 OTHER GROUP THERAPY 94.44 02/21/09 RECREATIONAL THERAPY 93.81 02/21/09 Internal Medicine Assmt/Plan - Assessment Assessment: 1.SEIZURE DISORDER. 2.CHRONIC CONSTIPATION. 3.DJD. 4.DEMENTIA. - Plan Plan: CONTONUE ON CURRENT MEDICATION AND DIET. Nutritional Asmnt/Malnutr-PDOC - Dietary Evaluation Malnutrition Findings (Please click <Entered> for more info): Nutritional Asmnt/Malnutrition Start: 07/17/17 14: 33 Text: Status: Complete Freq: Document 07/17/17 14:33 TAMARA (Rec: 07/17/17 14:40 TAMARA [id number]) Nutritional Asmnt/Malnutrition Patient General Information Nutritional Screening Moderate Risk Diagnosis psychosis Pertinent Medical Hx/Surgical Hx dementia, seizure disorder, DJD, chronic constipation Subjective Information pt seen sitting in bed, awake and alert, working on lunch tray during the time of visit. Pt reported good appetite, loves all kinds of food. Pt appeared obese, having mild muscle wasting on arms. Current Diet Order/ Nutrition Support [facility] soft chopped Pertinent Medications colace, remeron, MVI, vit C Pertinent Labs no nutrition related labs Nutritional Hx/Data Height 1.6 m Height (Calculated Centimeters) 160.0 Current Weight (lbs) 89.902 kg Weight (Calculated Kilograms) 89.9 Weight (Calculated Grams) 37225.0 [place] Body Weight 115 % [place] Body Weight 172 Body Mass Index (BMI) 35.1 Weight Status Obese GI Symptoms GI Symptoms None Difficult in: None Skin Integrity/Comment: blackened skin tear to left elbow Current %PO Good (75-100%) Estimated Nutritional Goals BEE in Kcals: Adj wt of IBW Calories/Kcals/Kg 25-30 Kcals Calculated 1550-1860kcal based on adj wt 62kg Protein: Adj wt of IBW Protein g/k Protein Calculated 62 Fluid: ml 2581-6904 Nutritional Problem 1. Problem Problem obesity Etiology ?imbalanced energy intake Signs/Symptoms: BMI 35 Malnutrition Alert Protein-Calorie Malnutrition N/A Is there a minimum of two criteria No selected? Query Text:Check all the applicable criteria. A minimum of two criteria are recommended for diagnosis of either severe or non-severe malnutrition. Intervention/Recommendation Comments 1. Continue with current diet as ordered. 2. Monitor PO intake, wt weekly, labs and skin integrity 3. F/U as low risk in 7 days, 07/24 Expected Outcomes/Goals Expected Outcomes/Goals 1. PO intake to meet at least 75% of nutritional needs. 2. Wt stability, skin to remain intact
[2017-07-23] MEDS: Oxybutynin Chloride 5 mg ER Tab PO SCH (09:25)
[2017-07-23] MEDS: Multivitamin Tab PO SCH (09:25)
--- NOTE | 2017-07-23 14:03 | Progress Notes ---
DATE: 07/23/2017 Case was discussed with staff of the patient. The patient continues to be internally preoccupied, confused, unable to make safe plan for self-care. Continues to have poor insight. She was diagnosed by neurologist to have narcolepsy and she is to be on Provigil, which I initiated again on her yesterday 100 mg daily with no side effects. She is still, however, with poor energy, poor motivation, hardly can say anything, needing redirection, very confused, unable to carry on a conversation, so I may have to increase the Provigil later and we will continue to work with the patient in group therapy, milieu therapy, adjust medication as needed. JOB# [id number]
--- NOTE | 2017-07-23 19:24 | Internal Medicine Prog Note ---
Internal Medicine Subjective - Subjective Service Date: 07/23/17 Patient seen and examined:: with staff (she is feeling better.) Patient is:: in bed, confused Per staff patient has:: no adverse event Internal Medicine Objective - Results Recent Labs: Laboratory Last Values POC Glucose Cancelled 07/16/17 17:32 Valproic Acid 63.6 ug/mL (50.0-100.0) 07/20/17 13:45 - Physical Exam Vitals and I&O: Vital Signs Temp 97.4 F 07/23/17 14:00 Pulse 68 07/23/17 14:00 Resp 20 07/23/17 14:00 BP 110/68 07/23/17 14:00 Pulse Ox 96 07/23/17 14:00 Intake & Output 07/23/17 07/23/17 07/24/17 06:59 18:59 06:59 Intake Total 700 Balance 700 Intake: Oral 700 Other: # Voids 3 # Bowel Movements 0 Active Medications: Current Medications Acetaminophen (Tylenol) 650 mg PO Q4HR PRN PRN Reason: Mild Pain / Temp above 100 Stop: 09/11/17 16:25 Al Hydrox/Mg Hydrox/Simethicone (Maalox) 30 ml PO Q4HR PRN PRN Reason: GI DISTRESS Stop: 09/11/17 16:25 Docusate Sodium (Colace) 100 mg PO DAILY [facility] Stop: 09/12/17 08:59 Last Admin: 07/23/17 09:26 Dose: Not Given Donepezil HCl (Aricept) 10 mg PO DAILY [facility] Stop: 09/12/17 08:59 Last Admin: 07/23/17 09:25 Dose: 10 mg Escitalopram Oxalate (Lexapro) 10 mg PO DAILY SHE PRN Reason: Protocol Stop: 09/12/17 08:59 Last Admin: 07/23/17 09:25 Dose: 10 mg Levetiracetam (Keppra) 500 mg PO BID [facility] Stop: 09/12/17 08:59 Last Admin: 07/23/17 18:23 Dose: Not Given Lorazepam (Ativan) 0.5 mg PO Q4HR PRN; Protocol PRN Reason: Agitation Stop: 08/12/17 16:25 Last Admin: 07/23/17 14:22 Dose: 0.5 mg Magnesium Hydroxide (Milk Of Magnesia) 30 ml PO HS PRN PRN Reason: Constipation Mirtazapine (Remeron) 7.5 mg PO HS SHE PRN Reason: Protocol Stop: 09/11/17 20:59 Last Admin: 07/22/17 21:34 Dose: 7.5 mg Modafinil (Provigil) 100 mg PO DAILY SHE PRN Reason: Protocol Stop: 09/20/17 08:59 Last Admin: 07/23/17 09:25 Dose: 100 mg Multivitamins/Vitamin C (Theragran) 1 tab PO DAILY [facility] Stop: 09/12/17 08:59 Last Admin: 07/23/17 09:25 Dose: 1 tab Oxybutynin Chloride (Ditropan Xl) 5 mg PO DAILY [facility] Stop: 09/12/17 08:59 Last Admin: 07/23/17 09:25 Dose: 5 mg Valproate Sodium (Depakene) 500 mg PO BID SHE PRN Reason: Protocol Stop: 09/12/17 08:59 Last Admin: 07/23/17 18:23 Dose: Not Given General: demented HEENT: NC/AT, PERRLA, anicteric sclerae, throat clear Neck: Supple Lungs: CTAB, congested Cardiovascular: Normal S1, Normal S2, without murmur Abdomen: non-tender, non-distended Extremities: clear Neurological: no change - Procedures Procedures: Procedures Procedure Code Date GROUP PSYCHOTHERAPY 44094 08/24/15 GROUP PSYCHOTHERAPY GZHZZZZ 08/24/15 INDIVID PSYCHOTHERAP NEC 94.39 02/21/09 OTHER GROUP THERAPY 94.44 02/21/09 RECREATIONAL THERAPY 93.81 02/21/09 Internal Medicine Assmt/Plan - Assessment Assessment: 1.SEIZURE DISORDER. 2.CHRONIC CONSTIPATION. 3.DJD. 4.DEMENTIA. - Plan Plan: CONTONUE ON CURRENT MEDICATION AND DIET. Nutritional Asmnt/Malnutr-PDOC - Dietary Evaluation Malnutrition Findings (Please click <Entered> for more info): Nutritional Asmnt/Malnutrition Start: 07/17/17 14: 33 Text: Status: Complete Freq: Document 07/17/17 14:33 TAMARA (Rec: 07/17/17 14:40 TAMARA [id number]) Nutritional Asmnt/Malnutrition Patient General Information Nutritional Screening Moderate Risk Diagnosis psychosis Pertinent Medical Hx/Surgical Hx dementia, seizure disorder, DJD, chronic constipation Subjective Information pt seen sitting in bed, awake and alert, working on lunch tray during the time of visit. Pt reported good appetite, loves all kinds of food. Pt appeared obese, having mild muscle wasting on arms. Current Diet Order/ Nutrition Support [facility] soft chopped Pertinent Medications colace, remeron, MVI, vit C Pertinent Labs no nutrition related labs Nutritional Hx/Data Height 1.6 m Height (Calculated Centimeters) 160.0 Current Weight (lbs) 89.902 kg Weight (Calculated Kilograms) 89.9 Weight (Calculated Grams) 57654.0 [place] Body Weight 115 % [place] Body Weight 172 Body Mass Index (BMI) 35.1 Weight Status Obese GI Symptoms GI Symptoms None Difficult in: None Skin Integrity/Comment: blackened skin tear to left elbow Current %PO Good (75-100%) Estimated Nutritional Goals BEE in Kcals: Adj wt of IBW Calories/Kcals/Kg 25-30 Kcals Calculated 1550-1860kcal based on adj wt 62kg Protein: Adj wt of IBW Protein g/k Protein Calculated 62 Fluid: ml 5194-6069 Nutritional Problem 1. Problem Problem obesity Etiology ?imbalanced energy intake Signs/Symptoms: BMI 35 Malnutrition Alert Protein-Calorie Malnutrition N/A Is there a minimum of two criteria No selected? Query Text:Check all the applicable criteria. A minimum of two criteria are recommended for diagnosis of either severe or non-severe malnutrition. Intervention/Recommendation Comments 1. Continue with current diet as ordered. 2. Monitor PO intake, wt weekly, labs and skin integrity 3. F/U as low risk in 7 days, 07/24 Expected Outcomes/Goals Expected Outcomes/Goals 1. PO intake to meet at least 75% of nutritional needs. 2. Wt stability, skin to remain intact
[2017-07-24] MEDS: Multivitamin Tab PO SCH (09:40)
[2017-07-24] MEDS: Oxybutynin Chloride 5 mg ER Tab PO SCH (09:40)
--- NOTE | 2017-07-24 21:22 | Internal Medicine Prog Note ---
Internal Medicine Subjective - Subjective Service Date: 07/24/17 Patient seen and examined:: without staff Patient is:: in bed, confused Per staff patient has:: no adverse event Internal Medicine Objective - Results Recent Labs: Laboratory Last Values POC Glucose Cancelled 07/16/17 17:32 Valproic Acid 63.6 ug/mL (50.0-100.0) 07/20/17 13:45 - Physical Exam Vitals and I&O: Vital Signs Temp 98.2 F 07/24/17 20:25 Pulse 75 07/24/17 20:25 Resp 19 07/24/17 20:25 BP 147/66 07/24/17 20:25 Pulse Ox 92 07/24/17 20:25 Intake & Output 07/24/17 07/24/17 07/25/17 06:59 18:59 06:59 Intake Total 120 1200 120 Balance 120 1200 120 Intake: Oral 120 1200 120 Other: # Voids 3 2 # Bowel Movements 1 0 Active Medications: Current Medications Acetaminophen (Tylenol) 650 mg PO Q4HR PRN PRN Reason: Mild Pain / Temp above 100 Stop: 09/11/17 16:25 Al Hydrox/Mg Hydrox/Simethicone (Maalox) 30 ml PO Q4HR PRN PRN Reason: GI DISTRESS Stop: 09/11/17 16:25 Docusate Sodium (Colace) 100 mg PO DAILY [facility] Stop: 09/12/17 08:59 Last Admin: 07/24/17 09:40 Dose: 100 mg Donepezil HCl (Aricept) 10 mg PO DAILY [facility] Stop: 09/12/17 08:59 Last Admin: 07/24/17 09:40 Dose: 10 mg Escitalopram Oxalate (Lexapro) 10 mg PO DAILY [facility] PRN Reason: Protocol Stop: 09/12/17 08:59 Last Admin: 07/24/17 09:40 Dose: 10 mg Levetiracetam (Keppra) 500 mg PO BID [facility] Stop: 09/12/17 08:59 Last Admin: 07/24/17 16:51 Dose: 500 mg Lorazepam (Ativan) 0.5 mg PO Q4HR PRN; Protocol PRN Reason: Agitation Stop: 08/12/17 16:25 Last Admin: 07/24/17 09:40 Dose: 0.5 mg Magnesium Hydroxide (Milk Of Magnesia) 30 ml PO HS PRN PRN Reason: Constipation Mirtazapine (Remeron) 7.5 mg PO HS SHE PRN Reason: Protocol Stop: 09/11/17 20:59 Last Admin: 07/23/17 20:48 Dose: 7.5 mg Modafinil (Provigil) 100 mg PO DAILY SHE PRN Reason: Protocol Stop: 09/20/17 08:59 Last Admin: 07/24/17 09:40 Dose: 100 mg Multivitamins/Vitamin C (Theragran) 1 tab PO DAILY [facility] Stop: 09/12/17 08:59 Last Admin: 07/24/17 09:40 Dose: 1 tab Oxybutynin Chloride (Ditropan Xl) 5 mg PO DAILY [facility] Stop: 09/12/17 08:59 Last Admin: 07/24/17 09:40 Dose: 5 mg Risperidone (Risperdal) 0.25 mg PO BID SHE PRN Reason: Protocol Stop: 09/22/17 16:59 Valproate Sodium (Depakene) 500 mg PO BID SHE PRN Reason: Protocol Stop: 09/12/17 08:59 Last Admin: 07/24/17 09:40 Dose: 500 mg General: demented HEENT: NC/AT, PERRLA, anicteric sclerae, throat clear Neck: Supple Lungs: CTAB, congested Cardiovascular: Normal S1, Normal S2, without murmur Abdomen: non-tender, non-distended Extremities: clear Neurological: no change - Procedures Procedures: Procedures Procedure Code Date GROUP PSYCHOTHERAPY 68045 08/24/15 GROUP PSYCHOTHERAPY GZHZZZZ 08/24/15 INDIVID PSYCHOTHERAP NEC 94.39 02/21/09 OTHER GROUP THERAPY 94.44 02/21/09 RECREATIONAL THERAPY 93.81 02/21/09 Internal Medicine Assmt/Plan - Assessment Assessment: 1.SEIZURE DISORDER. 2.CHRONIC CONSTIPATION. 3.DJD. 4.DEMENTIA. - Plan Plan: CONTONUE ON CURRENT MEDICATION AND DIET. Nutritional Asmnt/Malnutr-PDOC - Dietary Evaluation Malnutrition Findings (Please click <Entered> for more info): Nutritional Asmnt/Malnutrition Start: 07/17/17 14: 33 Text: Status: Complete Freq: Document 07/17/17 14:33 LCHENG (Rec: 07/17/17 14:40 LCHENG [id number]) Nutritional Asmnt/Malnutrition Patient General Information Nutritional Screening Moderate Risk Diagnosis psychosis Pertinent Medical Hx/Surgical Hx dementia, seizure disorder, DJD, chronic constipation Subjective Information pt seen sitting in bed, awake and alert, working on lunch tray during the time of visit. Pt reported good appetite, loves all kinds of food. Pt appeared obese, having mild muscle wasting on arms. Current Diet Order/ Nutrition Support [facility] soft chopped Pertinent Medications colace, remeron, MVI, vit C Pertinent Labs no nutrition related labs Nutritional Hx/Data Height 1.6 m Height (Calculated Centimeters) 160.0 Current Weight (lbs) 89.902 kg Weight (Calculated Kilograms) 89.9 Weight (Calculated Grams) 75864.0 [place] Body Weight 115 % [place] Body Weight 172 Body Mass Index (BMI) 35.1 Weight Status Obese GI Symptoms GI Symptoms None Difficult in: None Skin Integrity/Comment: blackened skin tear to left elbow Current %PO Good (75-100%) Estimated Nutritional Goals BEE in Kcals: Adj wt of IBW Calories/Kcals/Kg 25-30 Kcals Calculated 1550-1860kcal based on adj wt 62kg Protein: Adj wt of IBW Protein g/k Protein Calculated 62 Fluid: ml 1344-4968 Nutritional Problem 1. Problem Problem obesity Etiology ?imbalanced energy intake Signs/Symptoms: BMI 35 Malnutrition Alert Protein-Calorie Malnutrition N/A Is there a minimum of two criteria No selected? Query Text:Check all the applicable criteria. A minimum of two criteria are recommended for diagnosis of either severe or non-severe malnutrition. Intervention/Recommendation Comments 1. Continue with current diet as ordered. 2. Monitor PO intake, wt weekly, labs and skin integrity 3. F/U as low risk in 7 days, 07/24 Expected Outcomes/Goals Expected Outcomes/Goals 1. PO intake to meet at least 75% of nutritional needs. 2. Wt stability, skin to remain intact
--- NOTE | 2017-07-24 22:25 | Progress Notes ---
DATE: 07/24/2017 Case was discussed with staff of the patient, reviewed records. The patient continues to be unpredictable, impulsive, with episodes of yelling and screaming. Continues to have poor insight. Continues to be unable to make safe plan for self-care, though she is able to feed herself. The patient is demented, confused, easily overwhelmed. I will initiate on a very small dose of Risperdal because of her extreme agitation, irritability, poor insight. No side effects to the medication, no sedation, no nausea, no extrapyramidal symptoms. We will continue to work with the patient in group therapy, milieu therapy, and adjust medications as needed. JOB# [id number]
--- NOTE | 2017-07-25 07:44 | Progress Notes ---
DATE: 07/25/2017 SUBJECTIVE: The patient is currently under the care of Dr. Tillman. The patient has been in the hospital since 07/13/2017. She was initially admitted, transferred from the medical floor, agitation, psychosis, medically cleared, multiple admissions at this facility, noted to be demented and confused. Dr. Tillman has been seeing the patient since admission, noting poor insight, unpredictable and impulsive behaviors, yelling episodes, needing a lot of help with ADLs, irritable, poor insight. Medications reviewed. No overt side effects. Staff noting that she slept well last night. ASSESSMENT: The patient remains impulsive, unpredictable and not safe for a lower level of care, still with ongoing symptoms. PLAN: We will continue to monitor. We will titrate medications as tolerated. She is currently on Aricept and Lexapro, low dose Remeron, low dose Risperdal, and also Depakote. JOB# [id number]
[2017-07-25] MEDS: Oxybutynin Chloride 5 mg ER Tab PO SCH (09:45)
[2017-07-25] MEDS: Multivitamin Tab PO SCH (09:46)
--- NOTE | 2017-07-25 18:20 | General Progress Note ---
Subjective - Review of Systems Service Date: 07/25/17 Subjective: resting comfortably no distress Objective - Results Recent Labs: Laboratory Last Values POC Glucose Cancelled 07/16/17 17:32 Valproic Acid 63.6 ug/mL (50.0-100.0) 07/20/17 13:45 - Physical Exam Vitals and I&O: Vital Signs Temp 98 F 07/25/17 14:00 Pulse 63 07/25/17 14:00 Resp 20 07/25/17 14:00 BP 119/62 07/25/17 14:00 Pulse Ox 98 07/25/17 14:00 Intake & Output 07/24/17 07/25/17 07/25/17 18:59 06:59 18:59 Intake Total 1200 240 900 Balance 1200 240 900 Intake: Oral 1200 240 900 Other: # Voids 2 4 # Bowel Movements 1 0 2 Active Medications: Current Medications Acetaminophen (Tylenol) 650 mg PO Q4HR PRN PRN Reason: Mild Pain / Temp above 100 Stop: 09/11/17 16:25 Al Hydrox/Mg Hydrox/Simethicone (Maalox) 30 ml PO Q4HR PRN PRN Reason: GI DISTRESS Stop: 09/11/17 16:25 Docusate Sodium (Colace) 100 mg PO DAILY [facility] Stop: 09/12/17 08:59 Last Admin: 07/25/17 09:46 Dose: 100 mg Donepezil HCl (Aricept) 10 mg PO DAILY [facility] Stop: 09/12/17 08:59 Last Admin: 07/25/17 09:46 Dose: 10 mg Escitalopram Oxalate (Lexapro) 10 mg PO DAILY [facility] PRN Reason: Protocol Stop: 09/12/17 08:59 Last Admin: 07/25/17 09:46 Dose: 10 mg Levetiracetam (Keppra) 500 mg PO BID [facility] Stop: 09/12/17 08:59 Last Admin: 07/25/17 17:19 Dose: 500 mg Lorazepam (Ativan) 0.5 mg PO Q4HR PRN; Protocol PRN Reason: Agitation Stop: 08/12/17 16:25 Last Admin: 07/24/17 21:20 Dose: 0.5 mg Magnesium Hydroxide (Milk Of Magnesia) 30 ml PO HS PRN PRN Reason: Constipation Mirtazapine (Remeron) 7.5 mg PO HS SHE PRN Reason: Protocol Stop: 09/11/17 20:59 Last Admin: 07/24/17 21:20 Dose: 7.5 mg Modafinil (Provigil) 100 mg PO DAILY [facility] PRN Reason: Protocol Stop: 09/20/17 08:59 Last Admin: 07/25/17 09:46 Dose: 100 mg Multivitamins/Vitamin C (Theragran) 1 tab PO DAILY [facility] Stop: 09/12/17 08:59 Last Admin: 07/25/17 09:46 Dose: 1 tab Oxybutynin Chloride (Ditropan Xl) 5 mg PO DAILY [facility] Stop: 09/12/17 08:59 Last Admin: 07/25/17 09:45 Dose: 5 mg Risperidone (Risperdal) 0.25 mg PO BID [facility] PRN Reason: Protocol Stop: 09/22/17 16:59 Last Admin: 07/25/17 17:20 Dose: 0.25 mg Valproate Sodium (Depakene) 500 mg PO BID [facility] PRN Reason: Protocol Stop: 09/12/17 08:59 Last Admin: 07/25/17 17:19 Dose: 500 mg General: No acute distress HEENT: Atraumatic, PERRLA Neck: Supple, JVD Cardiovascular: Regular rate, Normal S1, Normal S2 Lungs: Clear to auscultation Abdomen: Bowel sounds, Soft - Procedures Procedures: Procedures Procedure Code Date GROUP PSYCHOTHERAPY 83675 08/24/15 GROUP PSYCHOTHERAPY GZHZZZZ 08/24/15 INDIVID PSYCHOTHERAP NEC 94.39 02/21/09 OTHER GROUP THERAPY 94.44 02/21/09 RECREATIONAL THERAPY 93.81 02/21/09 Assessment/Plan - Problem List Patient Problems: All Active Problems Fall (Acute) W19.XXXA HALLUCINATIONS WITH REFUSAL OF CARE (Acute) Psychosis (Acute) F29 Syncopal episodes (Acute) R55 - Assessment Assessment: 1.SEIZURE DISORDER. 2.CHRONIC CONSTIPATION. 3.DJD. 4.DEMENTIA. - Plan Plan: cont current treatment Nutritional Asmnt/Malnutr-PDOC - Dietary Evaluation Malnutrition Findings (Please click <Entered> for more info): Nutritional Asmnt/Malnutrition Start: 07/17/17 14: 33 Text: Status: Complete Freq: Document 07/17/17 14:33 LCHENG (Rec: 07/17/17 14:40 TAMARA [email or web address]) Nutritional Asmnt/Malnutrition Patient General Information Nutritional Screening Moderate Risk Diagnosis psychosis Pertinent Medical Hx/Surgical Hx dementia, seizure disorder, DJD, chronic constipation Subjective Information pt seen sitting in bed, awake and alert, working on lunch tray during the time of visit. Pt reported good appetite, loves all kinds of food. Pt appeared obese, having mild muscle wasting on arms. Current Diet Order/ Nutrition Support [facility] soft chopped Pertinent Medications colace, remeron, MVI, vit C Pertinent Labs no nutrition related labs Nutritional Hx/Data Height 1.6 m Height (Calculated Centimeters) 160.0 Current Weight (lbs) 89.902 kg Weight (Calculated Kilograms) 89.9 Weight (Calculated Grams) 91009.0 [place] Body Weight 115 % [place] Body Weight 172 Body Mass Index (BMI) 35.1 Weight Status Obese GI Symptoms GI Symptoms None Difficult in: None Skin Integrity/Comment: blackened skin tear to left elbow Current %PO Good (75-100%) Estimated Nutritional Goals BEE in Kcals: Adj wt of IBW Calories/Kcals/Kg 25-30 Kcals Calculated 1550-1860kcal based on adj wt 62kg Protein: Adj wt of IBW Protein g/k Protein Calculated 62 Fluid: ml 7738-4547 Nutritional Problem 1. Problem Problem obesity Etiology ?imbalanced energy intake Signs/Symptoms: BMI 35 Malnutrition Alert Protein-Calorie Malnutrition N/A Is there a minimum of two criteria No selected? Query Text:Check all the applicable criteria. A minimum of two criteria are recommended for diagnosis of either severe or non-severe malnutrition. Intervention/Recommendation Comments 1. Continue with current diet as ordered. 2. Monitor PO intake, wt weekly, labs and skin integrity 3. F/U as low risk in 7 days, 07/24 Expected Outcomes/Goals Expected Outcomes/Goals 1. PO intake to meet at least 75% of nutritional needs. 2. Wt stability, skin to remain intact
[2017-07-26] MEDS: Multivitamin Tab PO SCH (08:57)
[2017-07-26] MEDS: Oxybutynin Chloride 5 mg ER Tab PO SCH (08:57)
--- NOTE | 2017-07-26 11:25 | Progress Notes ---
DATE: 07/26/2017 The patient seen on 07/26/2017. The patient initially admitted, agitation, and psychotic behaviors, multiple admissions, demented, confused. On [id number], the patient is refusing interview, not wanting to speak with me. Noted to be with poor insight, still unpredictable and impulsive behaviors, needing help with ADLs, redirection. Medications were reviewed including dosages and frequencies. ASSESSMENT: The patient remains symptomatic. Minimal interactive, not wanting to speak with me, confused, disoriented, ongoing behaviors. PLAN: We will continue to monitor, encourage group as well as milieu therapy. [facility]# [id number]
--- NOTE | 2017-07-26 19:20 | General Progress Note ---
Subjective - Review of Systems Service Date: 07/26/17 Subjective: resting comfortably no distress Objective - Results Recent Labs: Laboratory Last Values POC Glucose Cancelled 07/16/17 17:32 Valproic Acid 63.6 ug/mL (50.0-100.0) 07/20/17 13:45 - Physical Exam Vitals and I&O: Vital Signs Temp 98.7 F 07/26/17 15:42 Pulse 59 07/26/17 15:42 Resp 20 07/26/17 15:42 BP 108/50 07/26/17 15:42 Pulse Ox 96 07/26/17 15:42 Intake & Output 07/26/17 07/26/17 07/27/17 06:59 18:59 06:59 Intake Total 240 950 Balance 240 950 Intake: Oral 240 950 Other: # Voids 1 4 # Bowel Movements 1 Active Medications: Current Medications Acetaminophen (Tylenol) 650 mg PO Q4HR PRN PRN Reason: Mild Pain / Temp above 100 Stop: 09/11/17 16:25 Al Hydrox/Mg Hydrox/Simethicone (Maalox) 30 ml PO Q4HR PRN PRN Reason: GI DISTRESS Stop: 09/11/17 16:25 Docusate Sodium (Colace) 100 mg PO DAILY [facility] Stop: 09/12/17 08:59 Last Admin: 07/26/17 08:57 Dose: 100 mg Donepezil HCl (Aricept) 10 mg PO DAILY [facility] Stop: 09/12/17 08:59 Last Admin: 07/26/17 08:57 Dose: 10 mg Escitalopram Oxalate (Lexapro) 10 mg PO DAILY [facility] PRN Reason: Protocol Stop: 09/12/17 08:59 Last Admin: 07/26/17 08:57 Dose: 10 mg Levetiracetam (Keppra) 500 mg PO BID [facility] Stop: 09/12/17 08:59 Last Admin: 07/26/17 16:19 Dose: 500 mg Lorazepam (Ativan) 0.5 mg PO Q4HR PRN; Protocol PRN Reason: Agitation Stop: 08/12/17 16:25 Last Admin: 07/24/17 21:20 Dose: 0.5 mg Magnesium Hydroxide (Milk Of Magnesia) 30 ml PO HS PRN PRN Reason: Constipation Mirtazapine (Remeron) 7.5 mg PO HS SHE PRN Reason: Protocol Stop: 09/11/17 20:59 Last Admin: 07/25/17 20:09 Dose: 7.5 mg Modafinil (Provigil) 100 mg PO DAILY [facility] PRN Reason: Protocol Stop: 09/20/17 08:59 Last Admin: 07/26/17 08:57 Dose: 100 mg Multivitamins/Vitamin C (Theragran) 1 tab PO DAILY [facility] Stop: 09/12/17 08:59 Last Admin: 07/26/17 08:57 Dose: 1 tab Oxybutynin Chloride (Ditropan Xl) 5 mg PO DAILY [facility] Stop: 09/12/17 08:59 Last Admin: 07/26/17 08:57 Dose: 5 mg Risperidone (Risperdal) 0.25 mg PO BID [facility] PRN Reason: Protocol Stop: 09/22/17 16:59 Last Admin: 07/26/17 16:19 Dose: 0.25 mg Valproate Sodium (Depakene) 500 mg PO BID [facility] PRN Reason: Protocol Stop: 09/12/17 08:59 Last Admin: 07/26/17 16:19 Dose: 500 mg General: No acute distress HEENT: Atraumatic, PERRLA Neck: Supple, JVD Cardiovascular: Regular rate, Normal S1, Normal S2 Lungs: Clear to auscultation Abdomen: Bowel sounds, Soft - Procedures Procedures: Procedures Procedure Code Date GROUP PSYCHOTHERAPY 75966 08/24/15 GROUP PSYCHOTHERAPY GZHZZZZ 08/24/15 INDIVID PSYCHOTHERAP NEC 94.39 02/21/09 OTHER GROUP THERAPY 94.44 02/21/09 RECREATIONAL THERAPY 93.81 02/21/09 Assessment/Plan - Problem List Patient Problems: All Active Problems Fall (Acute) W19.XXXA HALLUCINATIONS WITH REFUSAL OF CARE (Acute) Psychosis (Acute) F29 Syncopal episodes (Acute) R55 - Assessment Assessment: 1.SEIZURE DISORDER. 2.CHRONIC CONSTIPATION. 3.DJD. 4.DEMENTIA. - Plan Plan: cont current treatment Nutritional Asmnt/Malnutr-PDOC - Dietary Evaluation Malnutrition Findings (Please click <Entered> for more info): Nutritional Asmnt/Malnutrition Start: 07/17/17 14: 33 Text: Status: Complete Freq: Document 07/17/17 14:33 LCHENG (Rec: 07/17/17 14:40 LCTAMARAG [email or web address]) Nutritional Asmnt/Malnutrition Patient General Information Nutritional Screening Moderate Risk Diagnosis psychosis Pertinent Medical Hx/Surgical Hx dementia, seizure disorder, DJD, chronic constipation Subjective Information pt seen sitting in bed, awake and alert, working on lunch tray during the time of visit. Pt reported good appetite, loves all kinds of food. Pt appeared obese, having mild muscle wasting on arms. Current Diet Order/ Nutrition Support [facility] soft chopped Pertinent Medications colace, remeron, MVI, vit C Pertinent Labs no nutrition related labs Nutritional Hx/Data Height 1.6 m Height (Calculated Centimeters) 160.0 Current Weight (lbs) 89.902 kg Weight (Calculated Kilograms) 89.9 Weight (Calculated Grams) 13881.0 [place] Body Weight 115 % [place] Body Weight 172 Body Mass Index (BMI) 35.1 Weight Status Obese GI Symptoms GI Symptoms None Difficult in: None Skin Integrity/Comment: blackened skin tear to left elbow Current %PO Good (75-100%) Estimated Nutritional Goals BEE in Kcals: Adj wt of IBW Calories/Kcals/Kg 25-30 Kcals Calculated 1550-1860kcal based on adj wt 62kg Protein: Adj wt of IBW Protein g/k Protein Calculated 62 Fluid: ml 1321-5925 Nutritional Problem 1. Problem Problem obesity Etiology ?imbalanced energy intake Signs/Symptoms: BMI 35 Malnutrition Alert Protein-Calorie Malnutrition N/A Is there a minimum of two criteria No selected? Query Text:Check all the applicable criteria. A minimum of two criteria are recommended for diagnosis of either severe or non-severe malnutrition. Intervention/Recommendation Comments 1. Continue with current diet as ordered. 2. Monitor PO intake, wt weekly, labs and skin integrity 3. F/U as low risk in 7 days, 07/24 Expected Outcomes/Goals Expected Outcomes/Goals 1. PO intake to meet at least 75% of nutritional needs. 2. Wt stability, skin to remain intact
[2017-07-27] MEDS: Multivitamin Tab PO SCH (10:22)
[2017-07-27] MEDS: Oxybutynin Chloride 5 mg ER Tab PO SCH (10:22)
--- NOTE | 2017-07-27 16:48 | General Progress Note ---
Subjective - Review of Systems Service Date: 07/27/17 Subjective: resting comfortably no distress Objective - Results Recent Labs: Laboratory Last Values POC Glucose Cancelled 07/16/17 17:32 Valproic Acid 63.6 ug/mL (50.0-100.0) 07/20/17 13:45 - Physical Exam Vitals and I&O: Vital Signs Temp 98.1 F 07/27/17 15:13 Pulse 58 07/27/17 15:13 Resp 22 07/27/17 15:13 BP 113/61 07/27/17 15:13 Pulse Ox 97 07/27/17 15:13 Intake & Output 07/26/17 07/27/17 07/27/17 18:59 06:59 18:59 Intake Total 950 120 Balance 950 120 Intake: Oral 950 120 Other: # Voids 4 1 # Bowel Movements 1 Active Medications: Current Medications Acetaminophen (Tylenol) 650 mg PO Q4HR PRN PRN Reason: Mild Pain / Temp above 100 Stop: 09/11/17 16:25 Al Hydrox/Mg Hydrox/Simethicone (Maalox) 30 ml PO Q4HR PRN PRN Reason: GI DISTRESS Stop: 09/11/17 16:25 Docusate Sodium (Colace) 100 mg PO DAILY [facility] Stop: 09/12/17 08:59 Last Admin: 07/27/17 10:22 Dose: 100 mg Donepezil HCl (Aricept) 10 mg PO DAILY [facility] Stop: 09/12/17 08:59 Last Admin: 07/27/17 10:23 Dose: 10 mg Escitalopram Oxalate (Lexapro) 10 mg PO DAILY [facility] PRN Reason: Protocol Stop: 09/12/17 08:59 Last Admin: 07/27/17 10:22 Dose: 10 mg Levetiracetam (Keppra) 500 mg PO BID [facility] Stop: 09/12/17 08:59 Last Admin: 07/27/17 10:37 Dose: 500 mg Lorazepam (Ativan) 0.5 mg PO Q4HR PRN; Protocol PRN Reason: Agitation Stop: 08/12/17 16:25 Last Admin: 07/24/17 21:20 Dose: 0.5 mg Magnesium Hydroxide (Milk Of Magnesia) 30 ml PO HS PRN PRN Reason: Constipation Mirtazapine (Remeron) 7.5 mg PO HS SHE PRN Reason: Protocol Stop: 09/11/17 20:59 Last Admin: 07/26/17 20:48 Dose: 7.5 mg Modafinil (Provigil) 100 mg PO DAILY [facility] PRN Reason: Protocol Stop: 09/20/17 08:59 Last Admin: 07/27/17 10:22 Dose: 100 mg Multivitamins/Vitamin C (Theragran) 1 tab PO DAILY [facility] Stop: 09/12/17 08:59 Last Admin: 07/27/17 10:22 Dose: 1 tab Oxybutynin Chloride (Ditropan Xl) 5 mg PO DAILY [facility] Stop: 09/12/17 08:59 Last Admin: 07/27/17 10:22 Dose: 5 mg Risperidone (Risperdal) 0.25 mg PO BID [facility] PRN Reason: Protocol Stop: 09/22/17 16:59 Last Admin: 07/27/17 10:38 Dose: 0.25 mg Valproate Sodium (Depakene) 500 mg PO BID [facility] PRN Reason: Protocol Stop: 09/12/17 08:59 Last Admin: 07/27/17 10:39 Dose: Not Given General: No acute distress HEENT: Atraumatic, PERRLA Neck: Supple, JVD Cardiovascular: Regular rate, Normal S1, Normal S2 Lungs: Clear to auscultation Abdomen: Bowel sounds, Soft - Procedures Procedures: Procedures Procedure Code Date GROUP PSYCHOTHERAPY 60664 08/24/15 GROUP PSYCHOTHERAPY GZHZZZZ 08/24/15 INDIVID PSYCHOTHERAP NEC 94.39 02/21/09 OTHER GROUP THERAPY 94.44 02/21/09 RECREATIONAL THERAPY 93.81 02/21/09 Assessment/Plan - Problem List Patient Problems: All Active Problems Fall (Acute) W19.XXXA HALLUCINATIONS WITH REFUSAL OF CARE (Acute) Psychosis (Acute) F29 Syncopal episodes (Acute) R55 - Assessment Assessment: 1.SEIZURE DISORDER. 2.CHRONIC CONSTIPATION. 3.DJD. 4.DEMENTIA. - Plan Plan: cont current treatment Nutritional Asmnt/Malnutr-PDOC - Dietary Evaluation Malnutrition Findings (Please click <Entered> for more info): Nutritional Asmnt/Malnutrition Start: 07/17/17 14: 33 Text: Status: Complete Freq: Document 07/17/17 14:33 LCHENG (Rec: 07/17/17 14:40 LCTAMARAG [email or web address]) Nutritional Asmnt/Malnutrition Patient General Information Nutritional Screening Moderate Risk Diagnosis psychosis Pertinent Medical Hx/Surgical Hx dementia, seizure disorder, DJD, chronic constipation Subjective Information pt seen sitting in bed, awake and alert, working on lunch tray during the time of visit. Pt reported good appetite, loves all kinds of food. Pt appeared obese, having mild muscle wasting on arms. Current Diet Order/ Nutrition Support [facility] soft chopped Pertinent Medications colace, remeron, MVI, vit C Pertinent Labs no nutrition related labs Nutritional Hx/Data Height 1.6 m Height (Calculated Centimeters) 160.0 Current Weight (lbs) 89.902 kg Weight (Calculated Kilograms) 89.9 Weight (Calculated Grams) 79749.0 [place] Body Weight 115 % [place] Body Weight 172 Body Mass Index (BMI) 35.1 Weight Status Obese GI Symptoms GI Symptoms None Difficult in: None Skin Integrity/Comment: blackened skin tear to left elbow Current %PO Good (75-100%) Estimated Nutritional Goals BEE in Kcals: Adj wt of IBW Calories/Kcals/Kg 25-30 Kcals Calculated 1550-1860kcal based on adj wt 62kg Protein: Adj wt of IBW Protein g/k Protein Calculated 62 Fluid: ml 2535-6755 Nutritional Problem 1. Problem Problem obesity Etiology ?imbalanced energy intake Signs/Symptoms: BMI 35 Malnutrition Alert Protein-Calorie Malnutrition N/A Is there a minimum of two criteria No selected? Query Text:Check all the applicable criteria. A minimum of two criteria are recommended for diagnosis of either severe or non-severe malnutrition. Intervention/Recommendation Comments 1. Continue with current diet as ordered. 2. Monitor PO intake, wt weekly, labs and skin integrity 3. F/U as low risk in 7 days, 07/24 Expected Outcomes/Goals Expected Outcomes/Goals 1. PO intake to meet at least 75% of nutritional needs. 2. Wt stability, skin to remain intact
--- NOTE | 2017-07-27 22:47 | Progress Notes ---
DATE: COVERING FOR: Dr. Tillman. SUBJECTIVE: The patient was seen and evaluated. The patient's chart reviewed. Overnight, nursing staff reported the patient has been mostly isolated, withdrawn. Today on [id number] evaluation, the patient is refusing the interview. She mostly just stays in her room, does not engage, selectively mute, unpredictable. MENTAL STATUS EXAMINATION: Still selectively mute, distraught, impulsive behavior, poor insight, judgment and impulse control. ASSESSMENT AND PLAN: The patient is a 77-year-old female with minimal interaction, disengaged, selectively mute, disoriented, unable to formulate safe plan outside the structured environment. We will continue with primary psychiatrist's treatment plan and goals of medication, which include the following: Benazepril at 10 mg daily, Lexapro 10 mg a day, Keppra 500 mg p.o. b.i.d., and risperidone 0.5 mg b.i.d. with Depakote 500 mg b.i.d. JOB# [id number]
[2017-07-28] MEDS: Multivitamin Tab PO SCH (09:37)
[2017-07-28] MEDS: Oxybutynin Chloride 5 mg ER Tab PO SCH (09:37)
--- NOTE | 2017-07-28 14:26 | Progress Notes ---
DATE: 07/28/2017 SUBJECTIVE: Case was discussed with staff of the patient. The patient continues to appear very tired. Continues to be easily agitated and upset. Continues to have poor insight. Continues to be unpredictable and impulsive. I did initiate the patient on Risperdal 0.25 mg twice a day and her Depakote level is 52.4 which is within acceptable therapeutic lytic range that was on 07/15/2017, it was 63.6 on 07/20/2017 her CBC with low hemoglobin, but red cells within normal range. Low hematocrit and high MCV and high MCH. I did initiate the patient on Provigil, modafinil 100 mg a day. I will be increasing the dose to 200 mg a day to help with her poor energy and motivation and sleeping most of the day, which she used to be on ordered by her neurologist and so far no side effects noted. No extrapyramidal symptoms or she still appears to be sedated, which is probably because of her neurological disorder. We will continue to have the patient in group therapy, milieu therapy, adjust medication as needed. JOB# [id number]
--- NOTE | 2017-07-28 15:58 | Internal Medicine Prog Note ---
Internal Medicine Subjective - Subjective Service Date: 07/28/17 Patient seen and examined:: with staff (she is doing well) Patient is:: in bed, confused Per staff patient has:: no adverse event Internal Medicine Objective - Results Recent Labs: Laboratory Last Values POC Glucose Cancelled 07/16/17 17:32 Valproic Acid 63.6 ug/mL (50.0-100.0) 07/20/17 13:45 - Physical Exam Vitals and I&O: Vital Signs Temp 98.1 F 07/28/17 15:36 Pulse 60 07/28/17 15:36 Resp 19 07/28/17 15:36 BP 120/60 07/28/17 15:36 Pulse Ox 99 07/28/17 15:36 Intake & Output 07/27/17 07/28/17 07/28/17 18:59 06:59 18:59 Intake Total 120 Balance 120 Intake: Oral 120 Other: # Voids 1 # Bowel Movements 0 Active Medications: Current Medications Acetaminophen (Tylenol) 650 mg PO Q4HR PRN PRN Reason: Mild Pain / Temp above 100 Stop: 09/11/17 16:25 Al Hydrox/Mg Hydrox/Simethicone (Maalox) 30 ml PO Q4HR PRN PRN Reason: GI DISTRESS Stop: 09/11/17 16:25 Docusate Sodium (Colace) 100 mg PO DAILY [facility] Stop: 09/12/17 08:59 Last Admin: 07/28/17 09:37 Dose: 100 mg Donepezil HCl (Aricept) 10 mg PO DAILY [facility] Stop: 09/12/17 08:59 Last Admin: 07/28/17 09:37 Dose: 10 mg Escitalopram Oxalate (Lexapro) 10 mg PO DAILY [facility] PRN Reason: Protocol Stop: 09/12/17 08:59 Last Admin: 07/28/17 09:37 Dose: 10 mg Levetiracetam (Keppra) 500 mg PO BID [facility] Stop: 09/12/17 08:59 Last Admin: 07/28/17 09:37 Dose: 500 mg Lorazepam (Ativan) 0.5 mg PO Q4HR PRN; Protocol PRN Reason: Agitation Stop: 08/12/17 16:25 Last Admin: 07/24/17 21:20 Dose: 0.5 mg Magnesium Hydroxide (Milk Of Magnesia) 30 ml PO HS PRN PRN Reason: Constipation Mirtazapine (Remeron) 7.5 mg PO HS [facility] PRN Reason: Protocol Stop: 09/11/17 20:59 Last Admin: 07/27/17 21:45 Dose: Not Given Modafinil (Provigil) 200 mg PO DAILY [facility] PRN Reason: Protocol Stop: 09/26/17 11:29 Multivitamins/Vitamin C (Theragran) 1 tab PO DAILY [facility] Stop: 09/12/17 08:59 Last Admin: 07/28/17 09:37 Dose: 1 tab Oxybutynin Chloride (Ditropan Xl) 5 mg PO DAILY [facility] Stop: 09/12/17 08:59 Last Admin: 07/28/17 09:37 Dose: 5 mg Risperidone (Risperdal) 0.25 mg PO BID [facility] PRN Reason: Protocol Stop: 09/22/17 16:59 Last Admin: 07/28/17 09:37 Dose: 0.25 mg Valproate Sodium (Depakene) 500 mg PO BID [facility] PRN Reason: Protocol Stop: 09/12/17 08:59 Last Admin: 07/28/17 09:37 Dose: 500 mg General: demented HEENT: NC/AT, PERRLA, anicteric sclerae, throat clear Neck: Supple Lungs: CTAB, congested Cardiovascular: Normal S1, Normal S2, without murmur Abdomen: non-tender, non-distended Extremities: clear Neurological: no change - Procedures Procedures: Procedures Procedure Code Date GROUP PSYCHOTHERAPY 96477 08/24/15 GROUP PSYCHOTHERAPY GZHZZZZ 08/24/15 INDIVID PSYCHOTHERAP NEC 94.39 02/21/09 OTHER GROUP THERAPY 94.44 02/21/09 RECREATIONAL THERAPY 93.81 02/21/09 Internal Medicine Assmt/Plan - Assessment Assessment: 1.SEIZURE DISORDER. 2.CHRONIC CONSTIPATION. 3.DJD. 4.DEMENTIA. - Plan Plan: CONTONUE ON CURRENT MEDICATION AND DIET. Nutritional Asmnt/Malnutr-PDOC - Dietary Evaluation Malnutrition Findings (Please click <Entered> for more info): Nutritional Asmnt/Malnutrition Start: 07/17/17 14: 33 Text: Status: Complete Freq: Document 07/17/17 14:33 MAULIKG (Rec: 07/17/17 14:40 LCHENG [email or web address]) Nutritional Asmnt/Malnutrition Patient General Information Nutritional Screening Moderate Risk Diagnosis psychosis Pertinent Medical Hx/Surgical Hx dementia, seizure disorder, DJD, chronic constipation Subjective Information pt seen sitting in bed, awake and alert, working on lunch tray during the time of visit. Pt reported good appetite, loves all kinds of food. Pt appeared obese, having mild muscle wasting on arms. Current Diet Order/ Nutrition Support [facility] soft chopped Pertinent Medications colace, remeron, MVI, vit C Pertinent Labs no nutrition related labs Nutritional Hx/Data Height 1.6 m Height (Calculated Centimeters) 160.0 Current Weight (lbs) 89.902 kg Weight (Calculated Kilograms) 89.9 Weight (Calculated Grams) 25565.0 [place] Body Weight 115 % [place] Body Weight 172 Body Mass Index (BMI) 35.1 Weight Status Obese GI Symptoms GI Symptoms None Difficult in: None Skin Integrity/Comment: blackened skin tear to left elbow Current %PO Good (75-100%) Estimated Nutritional Goals BEE in Kcals: Adj wt of IBW Calories/Kcals/Kg 25-30 Kcals Calculated 1550-1860kcal based on adj wt 62kg Protein: Adj wt of IBW Protein g/k Protein Calculated 62 Fluid: ml 8615-1218 Nutritional Problem 1. Problem Problem obesity Etiology ?imbalanced energy intake Signs/Symptoms: BMI 35 Malnutrition Alert Protein-Calorie Malnutrition N/A Is there a minimum of two criteria No selected? Query Text:Check all the applicable criteria. A minimum of two criteria are recommended for diagnosis of either severe or non-severe malnutrition. Intervention/Recommendation Comments 1. Continue with current diet as ordered. 2. Monitor PO intake, wt weekly, labs and skin integrity 3. F/U as low risk in 7 days, 07/24 Expected Outcomes/Goals Expected Outcomes/Goals 1. PO intake to meet at least 75% of nutritional needs. 2. Wt stability, skin to remain intact
[2017-07-29] MEDS: Multivitamin Tab PO SCH (08:07)
[2017-07-29] MEDS: Oxybutynin Chloride 5 mg ER Tab PO SCH (08:07)
--- NOTE | 2017-07-29 09:48 | Progress Notes ---
DATE: 07/29/2017 Case was discussed with staff of the patient, reviewed records. The patient is to be irritable. The staff reports she sleep well last night and this morning, she is eating well. She continues to be unable to participate in meaningful conversation or make safe plan for self-care. She has to be easily agitated, continues to have poor insight. There is illusional at times. Depakote level is 52.4 which is within acceptable therapeutic range. She tolerated the Risperdal with no side effects. She does not have Ambien ordered for her sleep, so I will be ordering her a small dose of Ambien to be used as needed to help her with sleep and we will continue outpatient group therapy, milieu therapy, adjust the medication as needed. [facility]# [id number]
--- NOTE | 2017-07-29 18:20 | Internal Medicine Prog Note ---
Internal Medicine Subjective - Subjective Service Date: 07/29/17 Patient seen and examined:: with staff Patient is:: in bed, confused Per staff patient has:: no adverse event Internal Medicine Objective - Results Recent Labs: Laboratory Last Values POC Glucose Cancelled 07/16/17 17:32 Valproic Acid 63.6 ug/mL (50.0-100.0) 07/20/17 13:45 - Physical Exam Vitals and I&O: Vital Signs Temp 97.8 F 07/29/17 14:00 Pulse 64 07/29/17 14:00 Resp 20 07/29/17 14:00 BP 117/70 07/29/17 14:00 Pulse Ox 96 07/29/17 14:00 Intake & Output 07/28/17 07/29/17 07/29/17 18:59 06:59 18:59 Intake Total 975 180 700 Balance 975 180 700 Intake: Oral 975 180 700 Other: # Voids 3 2 3 # Bowel Movements 1 0 0 Active Medications: Current Medications Acetaminophen (Tylenol) 650 mg PO Q4HR PRN PRN Reason: Mild Pain / Temp above 100 Stop: 09/11/17 16:25 Al Hydrox/Mg Hydrox/Simethicone (Maalox) 30 ml PO Q4HR PRN PRN Reason: GI DISTRESS Stop: 09/11/17 16:25 Docusate Sodium (Colace) 100 mg PO DAILY [facility] Stop: 09/12/17 08:59 Last Admin: 07/29/17 08:08 Dose: 100 mg Donepezil HCl (Aricept) 10 mg PO DAILY [facility] Stop: 09/12/17 08:59 Last Admin: 07/29/17 08:08 Dose: 10 mg Escitalopram Oxalate (Lexapro) 10 mg PO DAILY [facility] PRN Reason: Protocol Stop: 09/12/17 08:59 Last Admin: 07/29/17 08:08 Dose: 10 mg Levetiracetam (Keppra) 500 mg PO BID [facility] Stop: 09/12/17 08:59 Last Admin: 07/29/17 16:37 Dose: 500 mg Lorazepam (Ativan) 0.5 mg PO Q4HR PRN; Protocol PRN Reason: Agitation Stop: 08/12/17 16:25 Last Admin: 07/24/17 21:20 Dose: 0.5 mg Mirtazapine (Remeron) 7.5 mg PO HS SHE PRN Reason: Protocol Stop: 09/11/17 20:59 Last Admin: 07/28/17 20:25 Dose: 7.5 mg Modafinil (Provigil) 200 mg PO DAILY SHE PRN Reason: Protocol Stop: 09/26/17 11:29 Last Admin: 07/29/17 08:08 Dose: 200 mg Multivitamins/Vitamin C (Theragran) 1 tab PO DAILY SHE Stop: 09/12/17 08:59 Last Admin: 07/29/17 08:07 Dose: 1 tab Oxybutynin Chloride (Ditropan Xl) 5 mg PO DAILY SHE Stop: 09/12/17 08:59 Last Admin: 07/29/17 08:07 Dose: 5 mg Risperidone (Risperdal) 0.25 mg PO BID SHE PRN Reason: Protocol Stop: 09/22/17 16:59 Last Admin: 07/29/17 16:37 Dose: 0.25 mg Valproate Sodium (Depakene) 500 mg PO BID SHE PRN Reason: Protocol Stop: 09/12/17 08:59 Last Admin: 07/29/17 16:37 Dose: 500 mg Zolpidem Tartrate (Ambien) 5 mg PO HS PRN PRN Reason: Insomnia Stop: 09/27/17 08:19 General: demented HEENT: NC/AT, PERRLA, anicteric sclerae, throat clear Neck: Supple Lungs: CTAB, congested Cardiovascular: Normal S1, Normal S2, without murmur Abdomen: non-tender, non-distended Extremities: clear Neurological: no change - Procedures Procedures: Procedures Procedure Code Date GROUP PSYCHOTHERAPY 54317 08/24/15 GROUP PSYCHOTHERAPY GZHZZZZ 08/24/15 INDIVID PSYCHOTHERAP NEC 94.39 02/21/09 OTHER GROUP THERAPY 94.44 02/21/09 RECREATIONAL THERAPY 93.81 02/21/09 Internal Medicine Assmt/Plan - Assessment Assessment: 1.SEIZURE DISORDER. 2.CHRONIC CONSTIPATION. 3.DJD. 4.DEMENTIA. - Plan Plan: CONTONUE ON CURRENT MEDICATION AND DIET. Nutritional Asmnt/Malnutr-PDOC - Dietary Evaluation Malnutrition Findings (Please click <Entered> for more info): Nutritional Asmnt/Malnutrition Start: 07/17/17 14: 33 Text: Status: Complete Freq: Document 07/17/17 14:33 LCKENNETH (Rec: 07/17/17 14:40 LCKENNETH [email or web address]) Nutritional Asmnt/Malnutrition Patient General Information Nutritional Screening Moderate Risk Diagnosis psychosis Pertinent Medical Hx/Surgical Hx dementia, seizure disorder, DJD, chronic constipation Subjective Information pt seen sitting in bed, awake and alert, working on lunch tray during the time of visit. Pt reported good appetite, loves all kinds of food. Pt appeared obese, having mild muscle wasting on arms. Current Diet Order/ Nutrition Support [facility] soft chopped Pertinent Medications colace, remeron, MVI, vit C Pertinent Labs no nutrition related labs Nutritional Hx/Data Height 1.6 m Height (Calculated Centimeters) 160.0 Current Weight (lbs) 89.902 kg Weight (Calculated Kilograms) 89.9 Weight (Calculated Grams) 84374.0 [place] Body Weight 115 % [place] Body Weight 172 Body Mass Index (BMI) 35.1 Weight Status Obese GI Symptoms GI Symptoms None Difficult in: None Skin Integrity/Comment: blackened skin tear to left elbow Current %PO Good (75-100%) Estimated Nutritional Goals BEE in Kcals: Adj wt of IBW Calories/Kcals/Kg 25-30 Kcals Calculated 1550-1860kcal based on adj wt 62kg Protein: Adj wt of IBW Protein g/k Protein Calculated 62 Fluid: ml 0074-6630 Nutritional Problem 1. Problem Problem obesity Etiology ?imbalanced energy intake Signs/Symptoms: BMI 35 Malnutrition Alert Protein-Calorie Malnutrition N/A Is there a minimum of two criteria No selected? Query Text:Check all the applicable criteria. A minimum of two criteria are recommended for diagnosis of either severe or non-severe malnutrition. Intervention/Recommendation Comments 1. Continue with current diet as ordered. 2. Monitor PO intake, wt weekly, labs and skin integrity 3. F/U as low risk in 7 days, 07/24 Expected Outcomes/Goals Expected Outcomes/Goals 1. PO intake to meet at least 75% of nutritional needs. 2. Wt stability, skin to remain intact
[2017-07-29] MEDS: NYSTATIN 100000 UNITS/GM POWD TP SCH (20:42)
[2017-07-30] MEDS: Oxybutynin Chloride 5 mg ER Tab PO SCH (08:24)
[2017-07-30] MEDS: Multivitamin Tab PO SCH (08:24)
[2017-07-30] MEDS: NYSTATIN 100000 UNITS/GM POWD TP SCH ×2 (10:14→20:45)
--- NOTE | 2017-07-30 15:42 | Internal Medicine Prog Note ---
Internal Medicine Subjective - Subjective Service Date: 07/30/17 Patient is:: awake, in bed, confused Per staff patient has:: no adverse event Internal Medicine Objective - Results Recent Labs: Laboratory Last Values POC Glucose Cancelled 07/16/17 17:32 Valproic Acid 63.6 ug/mL (50.0-100.0) 07/20/17 13:45 - Physical Exam Vitals and I&O: Vital Signs Temp 98.3 F 07/30/17 14:40 Pulse 64 07/30/17 14:40 Resp 20 07/30/17 14:40 BP 116/55 07/30/17 14:40 Pulse Ox 97 07/30/17 14:40 Intake & Output 07/29/17 07/30/17 07/30/17 18:59 06:59 18:59 Intake Total 700 120 Balance 700 120 Intake: Oral 700 120 Other: # Voids 3 3 # Bowel Movements 0 Active Medications: Current Medications Acetaminophen (Tylenol) 650 mg PO Q4HR PRN PRN Reason: Mild Pain / Temp above 100 Stop: 09/11/17 16:25 Al Hydrox/Mg Hydrox/Simethicone (Maalox) 30 ml PO Q4HR PRN PRN Reason: GI DISTRESS Stop: 09/11/17 16:25 Docusate Sodium (Colace) 100 mg PO DAILY [facility] Stop: 09/12/17 08:59 Last Admin: 07/30/17 08:24 Dose: 100 mg Donepezil HCl (Aricept) 10 mg PO DAILY [facility] Stop: 09/12/17 08:59 Last Admin: 07/30/17 08:24 Dose: 10 mg Escitalopram Oxalate (Lexapro) 10 mg PO DAILY [facility] PRN Reason: Protocol Stop: 09/12/17 08:59 Last Admin: 07/30/17 08:24 Dose: 10 mg Levetiracetam (Keppra) 500 mg PO BID [facility] Stop: 09/12/17 08:59 Last Admin: 07/30/17 08:24 Dose: 500 mg Lorazepam (Ativan) 0.5 mg PO Q4HR PRN; Protocol PRN Reason: Agitation Stop: 08/12/17 16:25 Last Admin: 07/24/17 21:20 Dose: 0.5 mg Mirtazapine (Remeron) 7.5 mg PO HS [facility] PRN Reason: Protocol Stop: 09/11/17 20:59 Last Admin: 07/29/17 21:30 Dose: 7.5 mg Modafinil (Provigil) 200 mg PO DAILY SHE PRN Reason: Protocol Stop: 09/26/17 11:29 Last Admin: 07/30/17 08:23 Dose: 200 mg Multivitamins/Vitamin C (Theragran) 1 tab PO DAILY SHE Stop: 09/12/17 08:59 Last Admin: 07/30/17 08:24 Dose: 1 tab Nystatin (Nystop) 0 units TP QSHIFT SHE Stop: 09/27/17 19:59 Last Admin: 07/30/17 10:14 Dose: 100,000 units Oxybutynin Chloride (Ditropan Xl) 5 mg PO DAILY SHE Stop: 09/12/17 08:59 Last Admin: 07/30/17 08:24 Dose: 5 mg Risperidone (Risperdal) 0.25 mg PO BID SHE PRN Reason: Protocol Stop: 09/22/17 16:59 Last Admin: 07/30/17 08:23 Dose: 0.25 mg Valproate Sodium (Depakene) 500 mg PO BID SHE PRN Reason: Protocol Stop: 09/12/17 08:59 Last Admin: 07/30/17 08:24 Dose: 500 mg Zolpidem Tartrate (Ambien) 5 mg PO HS PRN PRN Reason: Insomnia Stop: 09/27/17 08:19 General: demented HEENT: NC/AT, PERRLA, anicteric sclerae, throat clear Neck: Supple Lungs: CTAB, congested Cardiovascular: Normal S1, Normal S2, without murmur Abdomen: non-tender, non-distended Extremities: clear Neurological: no change - Procedures Procedures: Procedures Procedure Code Date GROUP PSYCHOTHERAPY 69376 08/24/15 GROUP PSYCHOTHERAPY GZHZZZZ 08/24/15 INDIVID PSYCHOTHERAP NEC 94.39 02/21/09 OTHER GROUP THERAPY 94.44 02/21/09 RECREATIONAL THERAPY 93.81 02/21/09 Internal Medicine Assmt/Plan - Assessment Assessment: 1.SEIZURE DISORDER. 2.CHRONIC CONSTIPATION. 3.DJD. 4.DEMENTIA. - Plan Plan: CONTONUE ON CURRENT MEDICATION AND DIET. Nutritional Asmnt/Malnutr-PDOC - Dietary Evaluation Malnutrition Findings (Please click <Entered> for more info): Nutritional Asmnt/Malnutrition Start: 07/17/17 14: 33 Text: Status: Complete Freq: Document 07/17/17 14:33 RAJESHKENNETH (Rec: 07/17/17 14:40 JERSE[place] [email or web address]) Nutritional Asmnt/Malnutrition Patient General Information Nutritional Screening Moderate Risk Diagnosis psychosis Pertinent Medical Hx/Surgical Hx dementia, seizure disorder, DJD, chronic constipation Subjective Information pt seen sitting in bed, awake and alert, working on lunch tray during the time of visit. Pt reported good appetite, loves all kinds of food. Pt appeared obese, having mild muscle wasting on arms. Current Diet Order/ Nutrition Support [facility] soft chopped Pertinent Medications colace, remeron, MVI, vit C Pertinent Labs no nutrition related labs Nutritional Hx/Data Height 1.6 m Height (Calculated Centimeters) 160.0 Current Weight (lbs) 89.902 kg Weight (Calculated Kilograms) 89.9 Weight (Calculated Grams) 61501.0 [place] Body Weight 115 % [place] Body Weight 172 Body Mass Index (BMI) 35.1 Weight Status Obese GI Symptoms GI Symptoms None Difficult in: None Skin Integrity/Comment: blackened skin tear to left elbow Current %PO Good (75-100%) Estimated Nutritional Goals BEE in Kcals: Adj wt of IBW Calories/Kcals/Kg 25-30 Kcals Calculated 1550-1860kcal based on adj wt 62kg Protein: Adj wt of IBW Protein g/k Protein Calculated 62 Fluid: ml 5689-7346 Nutritional Problem 1. Problem Problem obesity Etiology ?imbalanced energy intake Signs/Symptoms: BMI 35 Malnutrition Alert Protein-Calorie Malnutrition N/A Is there a minimum of two criteria No selected? Query Text:Check all the applicable criteria. A minimum of two criteria are recommended for diagnosis of either severe or non-severe malnutrition. Intervention/Recommendation Comments 1. Continue with current diet as ordered. 2. Monitor PO intake, wt weekly, labs and skin integrity 3. F/U as low risk in 7 days, 07/24 Expected Outcomes/Goals Expected Outcomes/Goals 1. PO intake to meet at least 75% of nutritional needs. 2. Wt stability, skin to remain intact
[2017-07-30] MEDS: Magnesium Hydroxide (MOM) 30 mL UDC PO PRN (17:17)
--- NOTE | 2017-07-30 21:55 | Progress Notes ---
DATE: 07/30/2017 Case was discussed with staff of the patient, reviewed treatment plans and goals. The patient is still having a lot of naps during the day, though I have increased her Provigil dose yesterday. She is also not sleeping well at times. Continues to be labile. Continues to be unpredictable, impulsive, confused, needing redirection. She can feed herself, but also the staff has to push her and help her feed. She is still labile, not ready to go to a lesser level of care. No side effects from the medication. No sedation. No nausea. No extrapyramidal symptoms. She has tolerated the Risperdal. We will continue to work with the patient in group therapy, milieu therapy, and adjust medications as needed. JOB# [id number]
[2017-07-31] MEDS: Multivitamin Tab PO SCH (09:06)
[2017-07-31] MEDS: Oxybutynin Chloride 5 mg ER Tab PO SCH (09:06)
[2017-07-31] MEDS: NYSTATIN 100000 UNITS/GM POWD TP SCH ×2 (09:07→20:13)
--- NOTE | 2017-07-31 15:58 | Progress Notes ---
DATE: 07/31/2017 Case was discussed with staff of the patient. The patient continues to be somewhat labile, continues to have poor insight. Continues to be unpredictable and impulsive, needing redirection. I did initiate provisional on her as she have narcolepsy and that was the neurologist recommended she take maybe that would help or becoming easier for her to be alert, she is still irritable, unable to sleep well. I will be increasing her Remeron dose at bedtime to 50 mg and so far no side effects with the medication, no sedation, no nausea, no extrapyramidal symptoms. I will continue outpatient, group therapy, milieu therapy, and adjust medications. JOB# [id number]
--- NOTE | 2017-07-31 18:52 | Internal Medicine Prog Note ---
Internal Medicine Subjective - Subjective Service Date: 07/31/17 Patient seen and examined:: with staff (SHE FEELS WELL) Patient is:: awake, in bed, confused Per staff patient has:: no adverse event Internal Medicine Objective - Results Recent Labs: Laboratory Last Values POC Glucose Cancelled 07/16/17 17:32 Valproic Acid 63.6 ug/mL (50.0-100.0) 07/20/17 13:45 - Physical Exam Vitals and I&O: Vital Signs Temp 97.4 F 07/31/17 15:04 Pulse 59 07/31/17 15:04 Resp 20 07/31/17 15:04 BP 108/62 07/31/17 15:04 Pulse Ox 97 07/31/17 15:04 Intake & Output 07/30/17 07/31/17 07/31/17 18:59 06:59 18:59 Intake Total 700 120 700 Balance 700 120 700 Intake: Oral 700 120 700 Other: # Voids 3 3 3 Active Medications: Current Medications Acetaminophen (Tylenol) 650 mg PO Q4HR PRN PRN Reason: Mild Pain / Temp above 100 Stop: 09/11/17 16:25 Al Hydrox/Mg Hydrox/Simethicone (Maalox) 30 ml PO Q4HR PRN PRN Reason: GI DISTRESS Stop: 09/11/17 16:25 Docusate Sodium (Colace) 100 mg PO DAILY [facility] Stop: 09/12/17 08:59 Last Admin: 07/31/17 09:06 Dose: 100 mg Donepezil HCl (Aricept) 10 mg PO DAILY [facility] Stop: 09/12/17 08:59 Last Admin: 07/31/17 09:07 Dose: 10 mg Escitalopram Oxalate (Lexapro) 10 mg PO DAILY [facility] PRN Reason: Protocol Stop: 09/12/17 08:59 Last Admin: 07/31/17 09:07 Dose: 10 mg Levetiracetam (Keppra) 500 mg PO BID [facility] Stop: 09/12/17 08:59 Last Admin: 07/31/17 16:58 Dose: 500 mg Lorazepam (Ativan) 0.5 mg PO Q4HR PRN; Protocol PRN Reason: Agitation Stop: 08/12/17 16:25 Last Admin: 07/24/17 21:20 Dose: 0.5 mg Magnesium Hydroxide (Milk Of Magnesia) 30 ml PO DAILY PRN PRN Reason: Constipation Stop: 09/28/17 16:26 Last Admin: 07/30/17 17:17 Dose: 30 ml Mirtazapine (Remeron) 15 mg PO HS SHE PRN Reason: Protocol Stop: 09/29/17 12:21 Modafinil (Provigil) 200 mg PO DAILY SHE PRN Reason: Protocol Stop: 09/26/17 11:29 Last Admin: 07/31/17 09:06 Dose: 200 mg Multivitamins/Vitamin C (Theragran) 1 tab PO DAILY [facility] Stop: 09/12/17 08:59 Last Admin: 07/31/17 09:06 Dose: 1 tab Nystatin (Nystop) 0 units TP QSHIFT SHE Stop: 09/27/17 19:59 Last Admin: 07/31/17 09:07 Dose: 1 units Oxybutynin Chloride (Ditropan Xl) 5 mg PO DAILY [facility] Stop: 09/12/17 08:59 Last Admin: 07/31/17 09:06 Dose: 5 mg Risperidone (Risperdal) 0.25 mg PO BID SHE PRN Reason: Protocol Stop: 09/22/17 16:59 Last Admin: 07/31/17 16:58 Dose: 0.25 mg Valproate Sodium (Depakene) 500 mg PO BID SHE PRN Reason: Protocol Stop: 09/12/17 08:59 Last Admin: 07/31/17 16:57 Dose: 500 mg Zolpidem Tartrate (Ambien) 5 mg PO HS PRN PRN Reason: Insomnia Stop: 09/27/17 08:19 General: demented HEENT: NC/AT, PERRLA, anicteric sclerae, throat clear Neck: Supple Lungs: CTAB, congested Cardiovascular: Normal S1, Normal S2, without murmur Abdomen: non-tender, non-distended Extremities: clear Neurological: no change - Procedures Procedures: Procedures Procedure Code Date GROUP PSYCHOTHERAPY 92993 08/24/15 GROUP PSYCHOTHERAPY GZHZZZZ 08/24/15 INDIVID PSYCHOTHERAP NEC 94.39 02/21/09 OTHER GROUP THERAPY 94.44 02/21/09 RECREATIONAL THERAPY 93.81 02/21/09 Internal Medicine Assmt/Plan - Assessment Assessment: 1.SEIZURE DISORDER. 2.CHRONIC CONSTIPATION. 3.DJD. 4.DEMENTIA. - Plan Plan: CONTONUE ON CURRENT MEDICATION AND DIET. Nutritional Asmnt/Malnutr-PDOC - Dietary Evaluation Malnutrition Findings (Please click <Entered> for more info): Nutritional Asmnt/Malnutrition Start: 07/17/17 14: 33 Text: Status: Complete Freq: Document 07/17/17 14:33 LCTAMARAG (Rec: 07/17/17 14:40 LCTAMARAG [email or web address]) Nutritional Asmnt/Malnutrition Patient General Information Nutritional Screening Moderate Risk Diagnosis psychosis Pertinent Medical Hx/Surgical Hx dementia, seizure disorder, DJD, chronic constipation Subjective Information pt seen sitting in bed, awake and alert, working on lunch tray during the time of visit. Pt reported good appetite, loves all kinds of food. Pt appeared obese, having mild muscle wasting on arms. Current Diet Order/ Nutrition Support [facility] soft chopped Pertinent Medications colace, remeron, MVI, vit C Pertinent Labs no nutrition related labs Nutritional Hx/Data Height 1.6 m Height (Calculated Centimeters) 160.0 Current Weight (lbs) 89.902 kg Weight (Calculated Kilograms) 89.9 Weight (Calculated Grams) 70888.0 [place] Body Weight 115 % [place] Body Weight 172 Body Mass Index (BMI) 35.1 Weight Status Obese GI Symptoms GI Symptoms None Difficult in: None Skin Integrity/Comment: blackened skin tear to left elbow Current %PO Good (75-100%) Estimated Nutritional Goals BEE in Kcals: Adj wt of IBW Calories/Kcals/Kg 25-30 Kcals Calculated 1550-1860kcal based on adj wt 62kg Protein: Adj wt of IBW Protein g/k Protein Calculated 62 Fluid: ml 5133-6373 Nutritional Problem 1. Problem Problem obesity Etiology ?imbalanced energy intake Signs/Symptoms: BMI 35 Malnutrition Alert Protein-Calorie Malnutrition N/A Is there a minimum of two criteria No selected? Query Text:Check all the applicable criteria. A minimum of two criteria are recommended for diagnosis of either severe or non-severe malnutrition. Intervention/Recommendation Comments 1. Continue with current diet as ordered. 2. Monitor PO intake, wt weekly, labs and skin integrity 3. F/U as low risk in 7 days, 07/24 Expected Outcomes/Goals Expected Outcomes/Goals 1. PO intake to meet at least 75% of nutritional needs. 2. Wt stability, skin to remain intact
[2017-08-01] MEDS: Multivitamin Tab PO SCH (08:51)
[2017-08-01] MEDS: Oxybutynin Chloride 5 mg ER Tab PO SCH (08:51)
[2017-08-01] MEDS: NYSTATIN 100000 UNITS/GM POWD TP SCH ×2 (09:00→21:01)
--- NOTE | 2017-08-01 12:34 | Internal Medicine Prog Note ---
Internal Medicine Subjective - Subjective Service Date: 08/01/17 Patient seen and examined:: without staff Patient is:: awake, in bed, confused Per staff patient has:: no adverse event Internal Medicine Objective - Results Recent Labs: Laboratory Last Values POC Glucose Cancelled 07/16/17 17:32 Valproic Acid 63.6 ug/mL (50.0-100.0) 07/20/17 13:45 - Physical Exam Vitals and I&O: Vital Signs Temp 98.2 F 08/01/17 07:24 Pulse 78 08/01/17 08:00 Resp 18 08/01/17 08:00 BP 120/69 08/01/17 07:24 Pulse Ox 97 08/01/17 07:24 Intake & Output 07/31/17 08/01/17 08/01/17 18:59 06:59 18:59 Intake Total 700 120 Balance 700 120 Intake: Oral 700 120 Other: # Voids 3 1 Active Medications: Current Medications Acetaminophen (Tylenol) 650 mg PO Q4HR PRN PRN Reason: Mild Pain / Temp above 100 Stop: 09/11/17 16:25 Al Hydrox/Mg Hydrox/Simethicone (Maalox) 30 ml PO Q4HR PRN PRN Reason: GI DISTRESS Stop: 09/11/17 16:25 Docusate Sodium (Colace) 100 mg PO DAILY [facility] Stop: 09/12/17 08:59 Last Admin: 08/01/17 08:51 Dose: 100 mg Donepezil HCl (Aricept) 10 mg PO DAILY [facility] Stop: 09/12/17 08:59 Last Admin: 08/01/17 08:51 Dose: 10 mg Escitalopram Oxalate (Lexapro) 10 mg PO DAILY [facility] PRN Reason: Protocol Stop: 09/12/17 08:59 Last Admin: 08/01/17 08:51 Dose: 10 mg Levetiracetam (Keppra) 500 mg PO BID [facility] Stop: 09/12/17 08:59 Last Admin: 08/01/17 08:51 Dose: 500 mg Lorazepam (Ativan) 0.5 mg PO Q4HR PRN; Protocol PRN Reason: Agitation Stop: 08/12/17 16:25 Last Admin: 07/24/17 21:20 Dose: 0.5 mg Magnesium Hydroxide (Milk Of Magnesia) 30 ml PO DAILY PRN PRN Reason: Constipation Stop: 09/28/17 16:26 Last Admin: 07/30/17 17:17 Dose: 30 ml Mirtazapine (Remeron) 15 mg PO HS SHE PRN Reason: Protocol Stop: 09/29/17 12:21 Last Admin: 07/31/17 20:52 Dose: 15 mg Modafinil (Provigil) 200 mg PO DAILY [facility] PRN Reason: Protocol Stop: 09/26/17 11:29 Last Admin: 08/01/17 08:51 Dose: 200 mg Multivitamins/Vitamin C (Theragran) 1 tab PO DAILY [facility] Stop: 09/12/17 08:59 Last Admin: 08/01/17 08:51 Dose: 1 tab Nystatin (Nystop) 0 units TP QSHIFT SHE Stop: 09/27/17 19:59 Last Admin: 07/31/17 20:13 Dose: 1 units Oxybutynin Chloride (Ditropan Xl) 5 mg PO DAILY [facility] Stop: 09/12/17 08:59 Last Admin: 08/01/17 08:51 Dose: 5 mg Risperidone (Risperdal) 0.25 mg PO BID SHE PRN Reason: Protocol Stop: 09/22/17 16:59 Last Admin: 08/01/17 08:50 Dose: 0.25 mg Valproate Sodium (Depakene) 500 mg PO BID SHE PRN Reason: Protocol Stop: 09/12/17 08:59 Last Admin: 08/01/17 08:50 Dose: 500 mg Zolpidem Tartrate (Ambien) 5 mg PO HS PRN PRN Reason: Insomnia Stop: 09/27/17 08:19 General: demented HEENT: NC/AT, PERRLA, anicteric sclerae, throat clear Neck: Supple Lungs: CTAB, congested Cardiovascular: Normal S1, Normal S2, without murmur Abdomen: non-tender, non-distended Extremities: clear Neurological: no change - Procedures Procedures: Procedures Procedure Code Date GROUP PSYCHOTHERAPY 76388 08/24/15 GROUP PSYCHOTHERAPY GZHZZZZ 08/24/15 INDIVID PSYCHOTHERAP NEC 94.39 02/21/09 OTHER GROUP THERAPY 94.44 02/21/09 RECREATIONAL THERAPY 93.81 02/21/09 Internal Medicine Assmt/Plan - Assessment Assessment: 1.SEIZURE DISORDER. 2.CHRONIC CONSTIPATION. 3.DJD. 4.DEMENTIA. - Plan Plan: CONTONUE ON CURRENT MEDICATION AND DIET. Nutritional Asmnt/Malnutr-PDOC - Dietary Evaluation Malnutrition Findings (Please click <Entered> for more info): Nutritional Asmnt/Malnutrition Start: 07/17/17 14: 33 Text: Status: Complete Freq: Document 07/17/17 14:33 MAULIKG (Rec: 07/17/17 14:40 KENNETH [email or web address]) Nutritional Asmnt/Malnutrition Patient General Information Nutritional Screening Moderate Risk Diagnosis psychosis Pertinent Medical Hx/Surgical Hx dementia, seizure disorder, DJD, chronic constipation Subjective Information pt seen sitting in bed, awake and alert, working on lunch tray during the time of visit. Pt reported good appetite, loves all kinds of food. Pt appeared obese, having mild muscle wasting on arms. Current Diet Order/ Nutrition Support [facility] soft chopped Pertinent Medications colace, remeron, MVI, vit C Pertinent Labs no nutrition related labs Nutritional Hx/Data Height 1.6 m Height (Calculated Centimeters) 160.0 Current Weight (lbs) 89.902 kg Weight (Calculated Kilograms) 89.9 Weight (Calculated Grams) 54768.0 [place] Body Weight 115 % [place] Body Weight 172 Body Mass Index (BMI) 35.1 Weight Status Obese GI Symptoms GI Symptoms None Difficult in: None Skin Integrity/Comment: blackened skin tear to left elbow Current %PO Good (75-100%) Estimated Nutritional Goals BEE in Kcals: Adj wt of IBW Calories/Kcals/Kg 25-30 Kcals Calculated 1550-1860kcal based on adj wt 62kg Protein: Adj wt of IBW Protein g/k Protein Calculated 62 Fluid: ml 3621-7326 Nutritional Problem 1. Problem Problem obesity Etiology ?imbalanced energy intake Signs/Symptoms: BMI 35 Malnutrition Alert Protein-Calorie Malnutrition N/A Is there a minimum of two criteria No selected? Query Text:Check all the applicable criteria. A minimum of two criteria are recommended for diagnosis of either severe or non-severe malnutrition. Intervention/Recommendation Comments 1. Continue with current diet as ordered. 2. Monitor PO intake, wt weekly, labs and skin integrity 3. F/U as low risk in 7 days, 07/24 Expected Outcomes/Goals Expected Outcomes/Goals 1. PO intake to meet at least 75% of nutritional needs. 2. Wt stability, skin to remain intact
--- NOTE | 2017-08-01 20:35 | Progress Notes ---
DATE: 08/01/2017 SUBJECTIVE: The patient seen and chart reviewed today on 08/01/2017. The patient transferred from the medical floor due to agitation and psychosis. On [id number], the patient remains somewhat disoriented, confused, poor insight, impulsive, unpredictable, needing redirection, noted to be with irritability and mood swings. Medications were reviewed including dosages and frequencies. The patient not really engaging during interview, still selectively mute, distraught. ASSESSMENT: The patient remains symptomatic, still with behavioral disturbances. PLAN: We will continue to monitor. Given her ongoing symptoms, she is not safe for discharge at this time. JOB# [id number]
[2017-08-02] MEDS: Multivitamin Tab PO SCH (09:46)
[2017-08-02] MEDS: Oxybutynin Chloride 5 mg ER Tab PO SCH (09:46)
[2017-08-02] MEDS: NYSTATIN 100000 UNITS/GM POWD TP SCH ×2 (09:47→20:39)
--- NOTE | 2017-08-02 17:11 | Internal Medicine Prog Note ---
Internal Medicine Subjective - Subjective Service Date: 08/02/17 Patient seen and examined:: without staff Patient is:: awake, in bed, confused Per staff patient has:: no adverse event Internal Medicine Objective - Results Recent Labs: Laboratory Last Values POC Glucose Cancelled 07/16/17 17:32 Valproic Acid 63.6 ug/mL (50.0-100.0) 07/20/17 13:45 - Physical Exam Vitals and I&O: Vital Signs Temp 97.6 F 08/02/17 14:53 Pulse 64 08/02/17 14:53 Resp 20 08/02/17 14:53 BP 110/50 08/02/17 14:53 Pulse Ox 95 08/02/17 14:53 Intake & Output 08/01/17 08/02/17 08/02/17 18:59 06:59 18:59 Intake Total 700 120 Balance 700 120 Intake: Oral 700 120 Other: # Voids 2 3 Active Medications: Current Medications Acetaminophen (Tylenol) 650 mg PO Q4HR PRN PRN Reason: Mild Pain / Temp above 100 Stop: 09/11/17 16:25 Al Hydrox/Mg Hydrox/Simethicone (Maalox) 30 ml PO Q4HR PRN PRN Reason: GI DISTRESS Stop: 09/11/17 16:25 Docusate Sodium (Colace) 100 mg PO DAILY [facility] Stop: 09/12/17 08:59 Last Admin: 08/02/17 09:46 Dose: 100 mg Donepezil HCl (Aricept) 10 mg PO DAILY [facility] Stop: 09/12/17 08:59 Last Admin: 08/02/17 09:46 Dose: 10 mg Escitalopram Oxalate (Lexapro) 10 mg PO DAILY [facility] PRN Reason: Protocol Stop: 09/12/17 08:59 Last Admin: 08/02/17 09:46 Dose: 10 mg Levetiracetam (Keppra) 500 mg PO BID [facility] Stop: 09/12/17 08:59 Last Admin: 08/02/17 17:03 Dose: 500 mg Lorazepam (Ativan) 0.5 mg PO Q4HR PRN; Protocol PRN Reason: Agitation Stop: 08/12/17 16:25 Last Admin: 08/02/17 17:03 Dose: 0.5 mg Magnesium Hydroxide (Milk Of Magnesia) 30 ml PO DAILY PRN PRN Reason: Constipation Stop: 09/28/17 16:26 Last Admin: 07/30/17 17:17 Dose: 30 ml Mirtazapine (Remeron) 15 mg PO HS SHE PRN Reason: Protocol Stop: 09/29/17 12:21 Last Admin: 08/01/17 20:50 Dose: 15 mg Modafinil (Provigil) 200 mg PO DAILY [facility] PRN Reason: Protocol Stop: 09/26/17 11:29 Last Admin: 08/02/17 09:46 Dose: 200 mg Multivitamins/Vitamin C (Theragran) 1 tab PO DAILY [facility] Stop: 09/12/17 08:59 Last Admin: 08/02/17 09:46 Dose: 1 tab Nystatin (Nystop) 0 units TP QSHIFT SHE Stop: 09/27/17 19:59 Last Admin: 08/02/17 09:47 Dose: 1 units Oxybutynin Chloride (Ditropan Xl) 5 mg PO DAILY [facility] Stop: 09/12/17 08:59 Last Admin: 08/02/17 09:46 Dose: 5 mg Risperidone (Risperdal) 0.25 mg PO BID SHE PRN Reason: Protocol Stop: 09/22/17 16:59 Last Admin: 08/02/17 17:03 Dose: 0.25 mg Valproate Sodium (Depakene) 500 mg PO BID SHE PRN Reason: Protocol Stop: 09/12/17 08:59 Last Admin: 08/02/17 17:04 Dose: 500 mg Zolpidem Tartrate (Ambien) 5 mg PO HS PRN PRN Reason: Insomnia Stop: 09/27/17 08:19 Last Admin: 08/01/17 20:50 Dose: 5 mg General: demented HEENT: NC/AT, PERRLA, anicteric sclerae, throat clear Neck: Supple Lungs: CTAB, congested Cardiovascular: Normal S1, Normal S2, without murmur Abdomen: non-tender, non-distended Extremities: clear Neurological: no change - Procedures Procedures: Procedures Procedure Code Date GROUP PSYCHOTHERAPY 42769 08/24/15 GROUP PSYCHOTHERAPY GZHZZZZ 08/24/15 INDIVID PSYCHOTHERAP NEC 94.39 02/21/09 OTHER GROUP THERAPY 94.44 02/21/09 RECREATIONAL THERAPY 93.81 02/21/09 Internal Medicine Assmt/Plan - Assessment Assessment: 1.SEIZURE DISORDER. 2.CHRONIC CONSTIPATION. 3.DJD. 4.DEMENTIA. - Plan Plan: CONTONUE ON CURRENT MEDICATION AND DIET. Nutritional Asmnt/Malnutr-PDOC - Dietary Evaluation Malnutrition Findings (Please click <Entered> for more info): Nutritional Asmnt/Malnutrition Start: 07/17/17 14: 33 Text: Status: Complete Freq: Document 07/17/17 14:33 LCTAMARAG (Rec: 07/17/17 14:40 LCHEN [email or web address]) Nutritional Asmnt/Malnutrition Patient General Information Nutritional Screening Moderate Risk Diagnosis psychosis Pertinent Medical Hx/Surgical Hx dementia, seizure disorder, DJD, chronic constipation Subjective Information pt seen sitting in bed, awake and alert, working on lunch tray during the time of visit. Pt reported good appetite, loves all kinds of food. Pt appeared obese, having mild muscle wasting on arms. Current Diet Order/ Nutrition Support [facility] soft chopped Pertinent Medications colace, remeron, MVI, vit C Pertinent Labs no nutrition related labs Nutritional Hx/Data Height 1.6 m Height (Calculated Centimeters) 160.0 Current Weight (lbs) 89.902 kg Weight (Calculated Kilograms) 89.9 Weight (Calculated Grams) 43518.0 [place] Body Weight 115 % [place] Body Weight 172 Body Mass Index (BMI) 35.1 Weight Status Obese GI Symptoms GI Symptoms None Difficult in: None Skin Integrity/Comment: blackened skin tear to left elbow Current %PO Good (75-100%) Estimated Nutritional Goals BEE in Kcals: Adj wt of IBW Calories/Kcals/Kg 25-30 Kcals Calculated 1550-1860kcal based on adj wt 62kg Protein: Adj wt of IBW Protein g/k Protein Calculated 62 Fluid: ml 2268-3718 Nutritional Problem 1. Problem Problem obesity Etiology ?imbalanced energy intake Signs/Symptoms: BMI 35 Malnutrition Alert Protein-Calorie Malnutrition N/A Is there a minimum of two criteria No selected? Query Text:Check all the applicable criteria. A minimum of two criteria are recommended for diagnosis of either severe or non-severe malnutrition. Intervention/Recommendation Comments 1. Continue with current diet as ordered. 2. Monitor PO intake, wt weekly, labs and skin integrity 3. F/U as low risk in 7 days, 07/24 Expected Outcomes/Goals Expected Outcomes/Goals 1. PO intake to meet at least 75% of nutritional needs. 2. Wt stability, skin to remain intact
--- NOTE | 2017-08-02 22:27 | Progress Notes ---
DATE: 08/02/2017 SUBJECTIVE: The patient transferred from the medical floor due to agitation and psychosis. The patient remains disoriented, confused with poor insight, unkempt, stating she is "not too good", rambling on exam, still needing a lot of redirection and isolated. Sleeping fairly well with typing checker awakenings. MEDICATIONS: Reviewed. ASSESSMENT: The patient remains symptomatic, essentially refusing interview. Noted to be unkempt, isolative. PLAN: We will continue to monitor. Given her ongoing behavioral disturbances, she is not safe for discharge. JOB# [id number]
[2017-08-03] MEDS: Oxybutynin Chloride 5 mg ER Tab PO SCH (08:26)
[2017-08-03] MEDS: Multivitamin Tab PO SCH (08:26)
[2017-08-03] MEDS: NYSTATIN 100000 UNITS/GM POWD TP SCH ×2 (08:26→20:50)
--- NOTE | 2017-08-03 09:10 | Progress Notes ---
DATE: 08/03/2017 SUBJECTIVE: The patient seen, chart reviewed, discussed with staff. The patient is transferred from medical floor due to agitation and psychosis. On [id number], she remains disoriented, poor insight, not answering any questions today, sleeping, but arousable, but does not want to talk to me, still isolative, withdrawn, needing a lot of redirection, sleeping fairly well last night, eating with prompting. MEDICATIONS: Reviewed. ASSESSMENT: The patient remains symptomatic, essentially refusing interview. She still remains pretty withdrawn and isolative. PLAN: We will continue to monitor given her ongoing symptoms, she is not safe for discharge. Still remaining somewhat impulsive, unpredictable. [facility]# [id number]
[2017-08-03] MEDS: Magnesium Hydroxide (MOM) 30 mL UDC PO PRN (13:24)
--- NOTE | 2017-08-03 23:26 | Internal Medicine Prog Note ---
Internal Medicine Subjective - Subjective Service Date: 08/03/17 Patient seen and examined:: without staff Patient is:: awake, in bed, confused Per staff patient has:: no adverse event Internal Medicine Objective - Results Recent Labs: Laboratory Last Values POC Glucose Cancelled 07/16/17 17:32 Valproic Acid 63.6 ug/mL (50.0-100.0) 07/20/17 13:45 - Physical Exam Vitals and I&O: Vital Signs Temp 98.1 F 08/03/17 19:40 Pulse 59 08/03/17 19:40 Resp 20 08/03/17 19:40 BP 117/62 08/03/17 19:40 Pulse Ox 97 08/03/17 19:40 Intake & Output 08/03/17 08/03/17 08/04/17 06:59 18:59 06:59 Intake Total 120 780 120 Balance 120 780 120 Intake: Oral 120 780 120 Other: # Voids 3 3 1 # Bowel Movements 1 Stool Characteristics Formed Hard Active Medications: Current Medications Acetaminophen (Tylenol) 650 mg PO Q4HR PRN PRN Reason: Mild Pain / Temp above 100 Stop: 09/11/17 16:25 Al Hydrox/Mg Hydrox/Simethicone (Maalox) 30 ml PO Q4HR PRN PRN Reason: GI DISTRESS Stop: 09/11/17 16:25 Docusate Sodium (Colace) 100 mg PO DAILY [facility] Stop: 09/12/17 08:59 Last Admin: 08/03/17 08:25 Dose: 100 mg Donepezil HCl (Aricept) 10 mg PO DAILY [facility] Stop: 09/12/17 08:59 Last Admin: 08/03/17 08:26 Dose: 10 mg Escitalopram Oxalate (Lexapro) 10 mg PO DAILY [facility] PRN Reason: Protocol Stop: 09/12/17 08:59 Last Admin: 08/03/17 08:25 Dose: 10 mg Levetiracetam (Keppra) 500 mg PO BID [facility] Stop: 09/12/17 08:59 Last Admin: 08/03/17 15:59 Dose: 500 mg Lorazepam (Ativan) 0.5 mg PO Q4HR PRN; Protocol PRN Reason: Agitation Stop: 08/12/17 16:25 Last Admin: 08/03/17 15:59 Dose: 0.5 mg Magnesium Hydroxide (Milk Of Magnesia) 30 ml PO DAILY PRN PRN Reason: Constipation Stop: 09/28/17 16:26 Last Admin: 08/03/17 13:24 Dose: 30 ml Mirtazapine (Remeron) 15 mg PO HS SHE PRN Reason: Protocol Stop: 09/29/17 12:21 Last Admin: 08/03/17 20:51 Dose: 15 mg Modafinil (Provigil) 200 mg PO DAILY [facility] PRN Reason: Protocol Stop: 09/26/17 11:29 Last Admin: 08/03/17 08:25 Dose: 200 mg Multivitamins/Vitamin C (Theragran) 1 tab PO DAILY [facility] Stop: 09/12/17 08:59 Last Admin: 08/03/17 08:26 Dose: 1 tab Nystatin (Nystop) 0 units TP QSHIFT [facility] Stop: 09/27/17 19:59 Last Admin: 08/03/17 20:50 Dose: 1 units Oxybutynin Chloride (Ditropan Xl) 5 mg PO DAILY [facility] Stop: 09/12/17 08:59 Last Admin: 08/03/17 08:26 Dose: 5 mg Risperidone (Risperdal) 0.25 mg PO BID [facility] PRN Reason: Protocol Stop: 09/22/17 16:59 Last Admin: 08/03/17 15:59 Dose: 0.25 mg Valproate Sodium (Depakene) 500 mg PO BID [facility] PRN Reason: Protocol Stop: 09/12/17 08:59 Last Admin: 08/03/17 15:59 Dose: 500 mg Zolpidem Tartrate (Ambien) 5 mg PO HS PRN PRN Reason: Insomnia Stop: 09/27/17 08:19 Last Admin: 08/02/17 22:48 Dose: 5 mg General: demented HEENT: NC/AT, PERRLA, anicteric sclerae, throat clear Neck: Supple Lungs: CTAB, congested Cardiovascular: Normal S1, Normal S2, without murmur Abdomen: non-tender, non-distended Extremities: clear Neurological: no change - Procedures Procedures: Procedures Procedure Code Date GROUP PSYCHOTHERAPY 31616 08/24/15 GROUP PSYCHOTHERAPY GZHZZZZ 08/24/15 INDIVID PSYCHOTHERAP NEC 94.39 02/21/09 OTHER GROUP THERAPY 94.44 02/21/09 RECREATIONAL THERAPY 93.81 02/21/09 Internal Medicine Assmt/Plan - Assessment Assessment: 1.SEIZURE DISORDER. 2.CHRONIC CONSTIPATION. 3.DJD. 4.DEMENTIA. - Plan Plan: CONTONUE ON CURRENT MEDICATION AND DIET. Nutritional Asmnt/Malnutr-PDOC - Dietary Evaluation Malnutrition Findings (Please click <Entered> for more info): Nutritional Asmnt/Malnutrition Start: 07/17/17 14: 33 Text: Status: Complete Freq: Document 07/17/17 14:33 HENG (Rec: 07/17/17 14:40 [email or web address] Nutritional Asmnt/Malnutrition Patient General Information Nutritional Screening Moderate Risk Diagnosis psychosis Pertinent Medical Hx/Surgical Hx dementia, seizure disorder, DJD, chronic constipation Subjective Information pt seen sitting in bed, awake and alert, working on lunch tray during the time of visit. Pt reported good appetite, loves all kinds of food. Pt appeared obese, having mild muscle wasting on arms. Current Diet Order/ Nutrition Support [facility] soft chopped Pertinent Medications colace, remeron, MVI, vit C Pertinent Labs no nutrition related labs Nutritional Hx/Data Height 1.6 m Height (Calculated Centimeters) 160.0 Current Weight (lbs) 89.902 kg Weight (Calculated Kilograms) 89.9 Weight (Calculated Grams) 19000.0 [place] Body Weight 115 % [place] Body Weight 172 Body Mass Index (BMI) 35.1 Weight Status Obese GI Symptoms GI Symptoms None Difficult in: None Skin Integrity/Comment: blackened skin tear to left elbow Current %PO Good (75-100%) Estimated Nutritional Goals BEE in Kcals: Adj wt of IBW Calories/Kcals/Kg 25-30 Kcals Calculated 1550-1860kcal based on adj wt 62kg Protein: Adj wt of IBW Protein g/k Protein Calculated 62 Fluid: ml 7866-4141 Nutritional Problem 1. Problem Problem obesity Etiology ?imbalanced energy intake Signs/Symptoms: BMI 35 Malnutrition Alert Protein-Calorie Malnutrition N/A Is there a minimum of two criteria No selected? Query Text:Check all the applicable criteria. A minimum of two criteria are recommended for diagnosis of either severe or non-severe malnutrition. Intervention/Recommendation Comments 1. Continue with current diet as ordered. 2. Monitor PO intake, wt weekly, labs and skin integrity 3. F/U as low risk in 7 days, 07/24 Expected Outcomes/Goals Expected Outcomes/Goals 1. PO intake to meet at least 75% of nutritional needs. 2. Wt stability, skin to remain intact
[2017-08-04] MEDS: NYSTATIN 100000 UNITS/GM POWD TP SCH (08:37)
[2017-08-04] MEDS: Multivitamin Tab PO SCH (08:37)
[2017-08-04] MEDS: Oxybutynin Chloride 5 mg ER Tab PO SCH (08:37)
--- NOTE | 2017-08-04 13:10 | Discharge Summary ---
DATE OF DISCHARGE: 08/04/2017 IDENTIFYING INFORMATION: The patient is 77-year-old female. HISTORY OF PRESENT ILLNESS: The patient was transferred from medical floor after she was sent from [place] because of agitation and psychosis. The patient was medically cleared and sent from the medical floor. The patient unable to participate in meaningful conversation, need help with ____ with multiple prior admissions to this facility, allergic to Cipro, diphenhydramine, and pseudoephedrine, history of seizure disorder and narcolepsy. COURSE IN THE HOSPITAL: The patient was started back on her medication prior to admission and Lexapro 10 mg a day, Aricept 10 mg at bedtime, Keppra 300 mg twice a day and Remeron was increased to 50 mg at bedtime. I added modafinil because as with the neurologist recommended. She was given and it was increased to 200 mg a day and she was also continued with multivitamin, oxybutynin 5 mg daily. I added BuSpar because of her psychosis, agitation. She was also on Depakote 500 mg twice a day and Ambien. The patient progressively got better. She was no longer acting out. She was sleeping well, eating well. She improved, we felt she could go back to [place]. FINAL DIAGNOSIS: AXIS I: Major depression, recurrent, severe with psychosis, dementia. MEDICAL DIAGNOSES: Seizure disorder, narcolepsy, hypertension, hypothyroidism, urinary incontinence, fungal infection. The patient will follow up with the physician at [place]. Dr. Alexandra also will follow up with her there. EXPECTED OUTCOME: Stable if the patient complies above. [facility]# [id number]
--- NOTE | 2017-08-04 13:48 | Internal Medicine Prog Note ---
Internal Medicine Subjective - Subjective Service Date: 08/04/17 Patient seen and examined:: with staff (she feels well) Patient is:: awake, in bed, confused Per staff patient has:: no adverse event Internal Medicine Objective - Results Recent Labs: Laboratory Last Values POC Glucose Cancelled 07/16/17 17:32 Valproic Acid 63.6 ug/mL (50.0-100.0) 07/20/17 13:45 - Physical Exam Vitals and I&O: Vital Signs Temp 98.8 F 08/04/17 05:49 Pulse 67 08/04/17 08:00 Resp 19 08/04/17 08:00 BP 123/68 08/04/17 05:49 Pulse Ox 95 08/04/17 05:49 Intake & Output 08/03/17 08/04/17 08/04/17 18:59 06:59 18:59 Intake Total 780 240 Balance 780 240 Intake: Oral 780 240 Other: # Voids 3 2 # Bowel Movements 1 0 Stool Characteristics Formed Hard Active Medications: Current Medications Acetaminophen (Tylenol) 650 mg PO Q4HR PRN PRN Reason: Mild Pain / Temp above 100 Stop: 09/11/17 16:25 Al Hydrox/Mg Hydrox/Simethicone (Maalox) 30 ml PO Q4HR PRN PRN Reason: GI DISTRESS Stop: 09/11/17 16:25 Docusate Sodium (Colace) 100 mg PO DAILY [facility] Stop: 09/12/17 08:59 Last Admin: 08/04/17 08:36 Dose: 100 mg Donepezil HCl (Aricept) 10 mg PO DAILY [facility] Stop: 09/12/17 08:59 Last Admin: 08/04/17 08:37 Dose: 10 mg Escitalopram Oxalate (Lexapro) 10 mg PO DAILY [facility] PRN Reason: Protocol Stop: 09/12/17 08:59 Last Admin: 08/04/17 08:35 Dose: 10 mg Levetiracetam (Keppra) 500 mg PO BID [facility] Stop: 09/12/17 08:59 Last Admin: 08/04/17 08:36 Dose: 500 mg Lorazepam (Ativan) 0.5 mg PO Q4HR PRN; Protocol PRN Reason: Agitation Stop: 08/12/17 16:25 Last Admin: 08/03/17 15:59 Dose: 0.5 mg Magnesium Hydroxide (Milk Of Magnesia) 30 ml PO DAILY PRN PRN Reason: Constipation Stop: 09/28/17 16:26 Last Admin: 08/03/17 13:24 Dose: 30 ml Mirtazapine (Remeron) 15 mg PO HS SHE PRN Reason: Protocol Stop: 09/29/17 12:21 Last Admin: 08/03/17 20:51 Dose: 15 mg Modafinil (Provigil) 200 mg PO DAILY [facility] PRN Reason: Protocol Stop: 09/26/17 11:29 Last Admin: 08/04/17 08:36 Dose: 200 mg Multivitamins/Vitamin C (Theragran) 1 tab PO DAILY [facility] Stop: 09/12/17 08:59 Last Admin: 08/04/17 08:37 Dose: 1 tab Nystatin (Nystop) 0 units TP QSHIFT SHE Stop: 09/27/17 19:59 Last Admin: 08/04/17 08:37 Dose: 1 units Oxybutynin Chloride (Ditropan Xl) 5 mg PO DAILY [facility] Stop: 09/12/17 08:59 Last Admin: 08/04/17 08:37 Dose: 5 mg Risperidone (Risperdal) 0.25 mg PO BID SHE PRN Reason: Protocol Stop: 09/22/17 16:59 Last Admin: 08/04/17 08:37 Dose: 0.25 mg Valproate Sodium (Depakene) 500 mg PO BID SHE PRN Reason: Protocol Stop: 09/12/17 08:59 Last Admin: 08/04/17 08:34 Dose: 500 mg Zolpidem Tartrate (Ambien) 5 mg PO HS PRN PRN Reason: Insomnia Stop: 09/27/17 08:19 Last Admin: 08/02/17 22:48 Dose: 5 mg General: demented HEENT: NC/AT, PERRLA, anicteric sclerae, throat clear Neck: Supple Lungs: CTAB, congested Cardiovascular: Normal S1, Normal S2, without murmur Abdomen: non-tender, non-distended Extremities: clear Neurological: no change - Procedures Procedures: Procedures Procedure Code Date GROUP PSYCHOTHERAPY 64958 08/24/15 GROUP PSYCHOTHERAPY GZHZZZZ 08/24/15 INDIVID PSYCHOTHERAP NEC 94.39 02/21/09 OTHER GROUP THERAPY 94.44 02/21/09 RECREATIONAL THERAPY 93.81 02/21/09 Internal Medicine Assmt/Plan - Assessment Assessment: 1.SEIZURE DISORDER. 2.CHRONIC CONSTIPATION. 3.DJD. 4.DEMENTIA. - Plan Plan: CONTONUE ON CURRENT MEDICATION AND DIET. Nutritional Asmnt/Malnutr-PDOC - Dietary Evaluation Malnutrition Findings (Please click <Entered> for more info): Nutritional Asmnt/Malnutrition Start: 07/17/17 14: 33 Text: Status: Complete Freq: Document 07/17/17 14:33 LCHENG (Rec: 07/17/17 14:40 LCHENG [email or web address]) Nutritional Asmnt/Malnutrition Patient General Information Nutritional Screening Moderate Risk Diagnosis psychosis Pertinent Medical Hx/Surgical Hx dementia, seizure disorder, DJD, chronic constipation Subjective Information pt seen sitting in bed, awake and alert, working on lunch tray during the time of visit. Pt reported good appetite, loves all kinds of food. Pt appeared obese, having mild muscle wasting on arms. Current Diet Order/ Nutrition Support [facility] soft chopped Pertinent Medications colace, remeron, MVI, vit C Pertinent Labs no nutrition related labs Nutritional Hx/Data Height 1.6 m Height (Calculated Centimeters) 160.0 Current Weight (lbs) 89.902 kg Weight (Calculated Kilograms) 89.9 Weight (Calculated Grams) 30380.0 [place] Body Weight 115 % [place] Body Weight 172 Body Mass Index (BMI) 35.1 Weight Status Obese GI Symptoms GI Symptoms None Difficult in: None Skin Integrity/Comment: blackened skin tear to left elbow Current %PO Good (75-100%) Estimated Nutritional Goals BEE in Kcals: Adj wt of IBW Calories/Kcals/Kg 25-30 Kcals Calculated 1550-1860kcal based on adj wt 62kg Protein: Adj wt of IBW Protein g/k Protein Calculated 62 Fluid: ml 3316-5640 Nutritional Problem 1. Problem Problem obesity Etiology ?imbalanced energy intake Signs/Symptoms: BMI 35 Malnutrition Alert Protein-Calorie Malnutrition N/A Is there a minimum of two criteria No selected? Query Text:Check all the applicable criteria. A minimum of two criteria are recommended for diagnosis of either severe or non-severe malnutrition. Intervention/Recommendation Comments 1. Continue with current diet as ordered. 2. Monitor PO intake, wt weekly, labs and skin integrity 3. F/U as low risk in 7 days, 07/24 Expected Outcomes/Goals Expected Outcomes/Goals 1. PO intake to meet at least 75% of nutritional needs. 2. Wt stability, skin to remain intact
== END 2017-08-04 16:05 | DRG 885 ==
LOC: GERO 14:49
PROVIDERS: ADMIT Psychiatry & Neurology Psychiatry; ATTEND Psychiatry & Neurology Psychiatry
DX: F33.3 Major depressive disorder, recurrent, severe with psychotic symptoms (principal); F03.91 Unspecified dementia, unspecified severity, with behavioral disturbance; G40.909 Epilepsy, unspecified, not intractable, without status epilepticus; B49 Unspecified mycosis; K59.09 Other constipation; E03.9 Hypothyroidism, unspecified; R32 Unspecified urinary incontinence; I10 Essential (primary) hypertension; G47.419 Narcolepsy without cataplexy; M19.90 Unspecified osteoarthritis, unspecified site; Z88.1 Allergy status to other antibiotic agents; Z88.8 Allergy status to other drugs, medicaments and biological substances
CPT/HCPCS: 36415-UA; 80164-TC; 82948-90; Z7610

== ENCOUNTER 2018-07-26 18:14 | Inpatient (IN) | payer MEDICARE, MEDICAID ==
--- NOTE | 2018-07-26 18:42 | ED Physician Chart ---
ED Chief Complaint/HPI - Patient Information Date Seen:: 07/26/18 Time Seen:: 18:37 Chief Complaint:: agitation History of Present Illness:: THIS IS A 78 YO FEMALE WHO WAS SENT HERE FOR AN EVALUATION AND CONFUSED WITH A DEPRESSIVE DISORDER. THIS PATIENT HAS BEEN ADMITTED HERE SEVERAL TIMES BEFORE. Allergies:: Allergies Allergy/AdvReac Type Severity Reaction Status Date / Time ciprofloxacin [From Cipro] Allergy Verified 07/10/16 17:04 diphenhydramine Allergy Verified 07/10/16 17:04 pseudoephedrine Allergy Verified 07/10/16 17:04 Vitals:: Vital Signs - 8 hr 07/26/18 18:23 Temp 97.7 F HR 61 RR 18 BP 139/70 O2 Sat % 98 Historian:: Medical Records Review:: Nurse's Note Reviewed, Old Chart Reviewed, Transfer documents Reviewed ED Review of Systems - Review of Systems General/Constitutional: No fever, No chills, No weight loss, No weakness, No diaphoresis, No edema, No loss of appetite, Other (THIS PATIENT IS UNABLE TO GIVE A REVIEW OF SYSTEMS ) Skin: No skin lesions, No rash, No bruising Head: No headache, No light-headedness Eyes: No loss of vision, No pain, No diplopia ENT: No earache, No nasal drainage, No sore throat, No tinnitus Neck: No neck pain, No swelling, No thyromegaly, No stiffness, No mass noted Cardio Vascular: No chest pain, No palpitations, No PND, No orthopnea, No edema Pulmonary: No SOB, No cough, No sputum, No wheezing GI: No nausea, No vomiting, No diarrhea, No pain, No melena, No hematochezia, No constipation, No hematemesis G/U: No dysuria, No frequency, No hematuria Musculoskeletal: No bone or joint pain, No back pain, No muscle pain Endocrine: No polyuria, No polydipsia Psychiatric: No prior psych history, No depression, No anxiety, No suicidal ideation Hematopoietic: No bruising, No lymphadenopathy Allergic/Immuno: No urticaria, No angioedema Neurological: No syncope, No focal symptoms, No weakness, No paresthesia, No headache, No seizure, No dizziness, No confusion, No vertigo ED Past Medical History - Past Medical History Obtainable: Yes Past Medical History: Seizures, Arthritis, Dementia Family History: None Social History: Non Smoker, No Alcohol, No Drug Use, Care Facility Surgical History: None Psychiatricy History: Depression, Dementia Medication: Reviewed Family Medical History - Family Member Maternal History Unknown: Yes Ethnicity: Unknown Living Status: Unknown ED Physical Exam - Physical Examination General/Constitutional: Awake, Well-developed, well-nourished, Alert, No distress, GCS 15, Non-toxic appearing, Ambulatory Head: Atraumatic Eyes: Lids, conjuctiva normal, PERRL, EOMI Skin: Nl inspection, No rash, No skin lesions, No ecchymosis, Well hydrated, No lymphadenopathy ENMT: External ears, nose nl, Nasal exam nl, Lips, teeth, gums nl Neck: Nontender, Full ROM w/o pain, No JVD, No nuchal rigidity, No bruit, No mass, No stridor Respiratory: Nl effort/Exclusion, Clear to Auscultation, No Wheeze/Rhonchi/Rales Cardio Vascular: RRR, No murmur, gallop, rubs, NL S1 S2 GI: No tenderness/rebounding/guarding, No organomegaly, No hernia, Normal BS's, Nondistended, No mass/bruits, No McBurney tenderness : No CVA tenderness Extremities: No tenderness or effusion, Full ROM, normal strength in all extremities, No edema, Normal digits & nails Neuro/Psych: Alert/oriented, DTR's symmetric, Normal sensory exam, Normal motor strength, Judgement/insight normal (POOR INSIGHT,), Mood normal (DEPRESSION), Normal gait, No focal deficits Misc: Normal back, No paraspinal tenderness ED Assessment - Assessment General Assessment: DEPRESSION DEMENTIA ED Septic Shock - . Is Septic Shock (SBP<90, OR Lactate>4 mmol\L) present?: No - <6hrs of presentation: Vital Signs: Vital Signs - 8 hr 07/26/18 18:23 Temp 97.7 F HR 61 RR 18 BP 139/70 O2 Sat % 98 ED Reassessment (Disposition) - Reassessment Reassessment Condition:: Unchanged - Diagnosis Diagnosis:: PSYCHOSIS SEIZURES - Aftercare/Follow up Instructions Notes:: DR. DANIELLE WILL CARE FOR THE PATIENT STARTING AT 1900 HRS. - Patient Disposition Discharge/Transfer:: Acute Care w/in this hosp Admitting Medical Physician:: Emiliano Alexandra Admitting Psych Physician:: Shannon Tillman Condition at Disposition:: Unchanged
[2018-07-26 18:49] LABS: % BASOPHILS 0.3 % (0.0-2.0); % EOSINOPHILS 1.3 % (0.0-5.0); % LYMPHOCYTES 29.6 % (20.0-50.0); % MONOCYTES 9.9 % (2.0-10.0); % NEUTROPHILS 58.9 % (40.0-80.0); EOSINOPHILE ABSOLUTE 0.1 Th/cmm (0.1-0.4); HEMATOCRIT 39.2 % (41.0-60); HEMOGLOBIN 13.5 gm/dL (12-16); LYMPHOCYTE ABSOLUTE 1.7 Th/cmm (1.5-3.0); MEAN CELL VOLUME 102.5 fl (81-100); MEAN CORPUSCULAR HEMOGLOBIN 35.4 pg (27.0-31.0); MEAN CORPUSCULAR HGB CONC 34.5 pg (28.0-36.0); MEAN PLATELET VOLUME 10.1 fl; MONOCYTE ABSOLUTE 0.6 Th/cmm (0.3-1.0); NEUTROPHILE ABSOLUTE 3.5 Th/cmm (1.8-8.0); PLATELET COUNT 236 Th/cmm (150-400); RED BLOOD COUNT 3.82 Mil/cmm (3.80-5.20); RED CELL DISTRIBUTION WIDTH 12.7 % (11.5-20.0); WHITE BLOOD COUNT 5.9 Th/cmm (4.8-10.8)
[2018-07-26 19:04] LABS: INR 1.07 (0.5-1.4); PROTHROMBIN TIME (TEST) 11.1 SECONDS (9.5-11.5)
[2018-07-26 19:06] LABS: ALB/GLOB RATIO 1.3 (1.0-1.8); ALBUMIN 3.4 gm/dL (3.7-5.3); ALKALINE PHOSPHATASE 38 U/L (34-104); ANION GAP 9.6 (7.0-16.0); BILIRUBIN,TOTAL 0.3 mg/dL (0.3-1.0); BUN - UREA NITROGEN 12 mg/dL (7-25); CALCIUM SERUM 9.1 mg/dL (8.6-10.3); CARBON DIOXIDE 28.8 mEq/L (21.0-31.0); CHLORIDE 103 mEq/L (98-107); CREATININE - SERUM 0.6 mg/dL (0.6-1.2); GLUCOSE 111 mg/dL (70-105); POTASSIUM SERUM 4.4 mEq/L (3.5-5.1); SGOT 15 U/L (13-39); SGPT/ALT 8 U/L (7-52); SODIUM SERUM 137 mEq/L (136-145)
[2018-07-26 19:51] LABS: URINE SOURCE CLEAN C
[2018-07-26 19:52] LABS: URINE BILIRUBIN NEGATIVE (NEGATIVE); URINE BLOOD NEGATIVE (NEGATIVE); URINE GLUCOSE (UA) NEGATIVE (NEGATIVE); URINE KETONE NEGATIVE (NEGATIVE); URINE LEUKOCYTE ESTERASE TRACE (NEGATIVE); URINE MICROSCOPIC INDICATED? YES; URINE NITRATE NEGATIVE (NEGATIVE); URINE PROTEIN NEGATIVE (NEGATIVE)
[2018-07-26 19:57] VITALS: BP 145/55
[2018-07-26 19:58] LABS: URINE CLARITY CLEAR (CLEAR); URINE COLOR YELLOW; URINE RBC NONE SEEN /hpf (0-5)
[2018-07-26 19:59] LABS: URINE BACTERIA FEW /hpf (NONE SEEN); URINE EPITHELIAL CELLS FEW /lpf (FEW)
[2018-07-26] MEDS ORDERED: Magnesium Hydroxide (MOM) 30 mL UDC PO PRN (21:12)
[2018-07-26 22:41] LABS: CHOLESTEROL 190 mg/dL (<200); HDL -HIGH DENSITY LIPOPROTEIN 50 mg/dL (23-92); TRIGLYCERIDES 100 mg/dL (<150)
--- NOTE | 2018-07-26 23:07 | History & Physical ---
ADMIT DATE: 07/26/2018 HISTORY OF PRESENT ILLNESS: The patient is a 78-year-old female with long history of seizure disorder, bladder dysfunction, dementia, and psychosis; admitted to [facility] under Dr. Tillman's service for above treatment. The patient is very poor historian. PAST MEDICAL HISTORY: Significant for seizure disorder, dementia, bladder dysfunction, and psychosis. PAST SURGICAL HISTORY: No recent surgery. ALLERGIES: CIPRO, DIPHENHYDRAMINE, and PSEUDOEPHEDRINE. SOCIAL HISTORY: No smoking, no alcohol. FAMILY HISTORY: Noncontributory. MEDICATIONS: Follow admission reconciliation. REVIEW OF SYSTEMS: RENAL SYSTEM: No history of chronic renal disorder. CARDIOVASCULAR SYSTEM: No coronary artery disease. ENDOCRINE SYSTEM: No diabetes or thyroid problem. GASTROINTESTINAL SYSTEM: No upper or lower GI bleeding. NEUROLOGICAL: She has history of seizure disorder. SKELETOMUSCULAR SYSTEM: No muscular dystrophy. HEMATOLOGIC: No bleeding tendencies. RESPIRATORY SYSTEM: No asthma. GENITOURINARY: She has bladder dysfunction. PHYSICAL EXAMINATION: GENERAL: She is awake, not coherent. VITAL SIGNS: Temperature is 97, heart rate 69, and blood pressure 145/55. HEENT: Normocephalic. Pupils reactive to light and accommodation. Sclerae clear. NECK: Supple. Negative for lymphadenopathy, JVD, or bruit. CHEST: Entry of air bilateral normal. No rhonchi or wheezing. HEART: S1, S2 normal. No gallop rhythm. ABDOMEN: Soft, bowel sounds positive. EXTREMITIES: No edema. BACK: Normal vertebra. SKIN: Intact. BREASTS AND PELVIC: Exam done by primary physician, no complaint. NEUROLOGIC: She is awake, alert, not coherent. No focal motor or sensory deficits. Cranial nerves II through XII intact. LABORATORY DATA: White blood cell 5.9, hemoglobin 13.5, hematocrit 39.2, and platelet is 236. Sodium 137, potassium 4.4, BUN 12, and creatinine 0.6. ASSESSMENT: 1. Seizure disorder. 2. Bladder dysfunction. 3. Dementia. 4. Psychosis. PLAN: The patient admitted to the hospital under Dr. Tillman's service. Medical problem addressed during hospitalization is psychosis. Medical problems addressed at discharge are seizure disorder, dementia, and bladder dysfunction. The patient is medically stable for activity. The patient is a full code. Thank you, Dr. Tillman, for asking me to see the patient. JOB# [id number]
--- NOTE | 2018-07-27 08:42 | Diagnostic Imaging Report ---
Portable chest x-ray History: Cough Allowing for portable technique the heart size is normal. Atherosclerotic calcification seen within the aortic arch. No focal pulmonary parenchymal processes. No hilar or mediastinal abnormalities. Electrode density projects over the left chest. Surgical changes seen within the cervical spine. Impression: 1. No acute abnormalities 2. Atherosclerotic vascular changes
[2018-07-27] MEDS: Oxybutynin Chloride 5 mg ER Tab PO SCH (09:54)
[2018-07-27] MEDS: Multivitamin w/ Minerals Tab PO SCH (09:54)
--- NOTE | 2018-07-27 10:27 | Internal Medicine Prog Note ---
Internal Medicine Subjective - Subjective Service Date: 07/27/18 Patient seen and examined:: with staff Patient is:: awake, non-verbal, giovanni chair, confused Per staff patient has:: no adverse event Internal Medicine Objective - Results Result Diagrams: 07/26/18 18:40 07/26/18 18:40 Recent Labs: Laboratory Last Values WBC 5.9 Th/cmm (4.8-10.8) 07/26/18 18:40 RBC 3.82 Mil/cmm (3.80-5.20) 07/26/18 18:40 Hgb 13.5 gm/dL (12-16) 07/26/18 18:40 Hct 39.2 % (41.0-60) L 07/26/18 18:40 MCV 102.5 fl (81-100) H 07/26/18 18:40 MCH 35.4 pg (27.0-31.0) H 07/26/18 18:40 MCHC Differential 34.5 pg (28.0-36.0) 07/26/18 18:40 RDW 12.7 % (11.5-20.0) 07/26/18 18:40 Plt Count 236 Th/cmm (150-400) 07/26/18 18:40 MPV 10.1 fl 07/26/18 18:40 Neutrophils % 58.9 % (40.0-80.0) 07/26/18 18:40 Lymphocytes % 29.6 % (20.0-50.0) 07/26/18 18:40 Monocytes % 9.9 % (2.0-10.0) 07/26/18 18:40 Eosinophils % 1.3 % (0.0-5.0) 07/26/18 18:40 Basophils % 0.3 % (0.0-2.0) 07/26/18 18:40 PT 11.1 SECONDS (9.5-11.5) 07/26/18 18:40 INR 1.07 (0.5-1.4) 07/26/18 18:40 Sodium 137 mEq/L (136-145) 07/26/18 18:40 Potassium 4.4 mEq/L (3.5-5.1) 07/26/18 18:40 Chloride 103 mEq/L (98-107) 07/26/18 18:40 Carbon Dioxide 28.8 mEq/L (21.0-31.0) 07/26/18 18:40 Anion Gap 9.6 (7.0-16.0) 07/26/18 18:40 BUN 12 mg/dL (7-25) 07/26/18 18:40 Creatinine 0.6 mg/dL (0.6-1.2) 07/26/18 18:40 Est GFR ( Amer) TNP 07/26/18 18:40 Est GFR (Non-Af Amer) TNP 07/26/18 18:40 BUN/Creatinine Ratio 20.0 07/26/18 18:40 Glucose 111 mg/dL (70-105) H 07/26/18 18:40 Calcium 9.1 mg/dL (8.6-10.3) 07/26/18 18:40 Total Bilirubin 0.3 mg/dL (0.3-1.0) 07/26/18 18:40 AST 15 U/L (13-39) 07/26/18 18:40 ALT 8 U/L (7-52) 07/26/18 18:40 Alkaline Phosphatase 38 U/L (34-104) 07/26/18 18:40 Troponin I < 0.01 ng/mL (0.01-0.05) L 07/26/18 18:40 Total Protein 6.0 gm/dL (6.0-8.3) 07/26/18 18:40 Albumin 3.4 gm/dL (3.7-5.3) L 07/26/18 18:40 Globulin 2.6 gm/dL 07/26/18 18:40 Albumin/Globulin Ratio 1.3 (1.0-1.8) 07/26/18 18:40 Triglycerides 100 mg/dL (<150) 07/26/18 18:40 Cholesterol 190 mg/dL (<200) 07/26/18 18:40 LDL Cholesterol Direct 130 mg/dL (75-193) 07/26/18 18:40 HDL Cholesterol 50 mg/dL (23-92) 07/26/18 18:40 TSH 2.08 uIU/ml (0.34-5.60) 07/26/18 18:40 Urine Source CLEAN C 07/26/18 19:35 Urine Color YELLOW 07/26/18 19:35 Urine Clarity CLEAR (CLEAR) 07/26/18 19:35 Urine pH 8.0 (4.6 - 8.0) 07/26/18 19:35 Ur Specific [place] 1.015 (1.005-1.030) 07/26/18 19:35 Urine Protein NEGATIVE mg/dL (NEGATIVE) 07/26/18 19:35 Urine Glucose (UA) NEGATIVE mg/dL (NEGATIVE) 07/26/18 19:35 Urine Ketones NEGATIVE mg/dL (NEGATIVE) 07/26/18 19:35 Urine Blood NEGATIVE (NEGATIVE) 07/26/18 19:35 Urine Nitrate NEGATIVE (NEGATIVE) 07/26/18 19:35 Urine Bilirubin NEGATIVE (NEGATIVE) 07/26/18 19:35 Urine Urobilinogen 1.0 E.U./dL (0.2 - 1.0) 07/26/18 19:35 Ur Leukocyte Esterase TRACE (NEGATIVE) H 07/26/18 19:35 Urine RBC NONE SEEN /hpf (0-5) 07/26/18 19:35 Urine WBC 2-5 /hpf (0-5) 07/26/18 19:35 Ur Epithelial Cells FEW /lpf (FEW) 07/26/18 19:35 Urine Bacteria FEW /hpf (NONE SEEN) 07/26/18 19:35 Valproic Acid 43.6 ug/mL (50.0-100.0) L 07/26/18 18:40 - Physical Exam Vitals and I&O: Vital Signs Temp 97.9 F 07/27/18 06:23 Pulse 60 07/27/18 06:23 Resp 18 07/27/18 06:23 BP 127/65 07/27/18 06:23 Pulse Ox 99 07/27/18 06:23 Intake & Output 07/26/18 07/27/18 07/27/18 18:59 06:59 18:59 Intake Total 240 Balance 240 Weight (lbs) 89.811 kg Intake: Oral 240 Other: # Voids 2 Weight Source Estimated Active Medications: Current Medications Acetaminophen (Tylenol) 650 mg PO Q4HR PRN PRN Reason: Pain (Mild) Stop: 09/24/18 21:11 Alendronate Sodium (Fosamax) 70 mg PO Sa@0730 [facility] Stop: 09/24/18 21:14 Docusate Sodium (Colace) 100 mg PO BID [facility] Stop: 09/25/18 08:59 Last Admin: 07/27/18 09:54 Dose: 100 mg Donepezil HCl (Aricept) 10 mg PO HS [facility] Stop: 09/25/18 20:59 Levetiracetam (Keppra) 500 mg PO BID [facility] Stop: 09/25/18 08:59 Last Admin: 07/27/18 09:54 Dose: 500 mg Magnesium Hydroxide (Milk Of Magnesia) 30 ml PO DAILY PRN PRN Reason: Constipation Stop: 09/24/18 21:11 Modafinil (Provigil) 200 mg PO DAILY [facility]; Protocol Stop: 09/25/18 08:59 Last Admin: 07/27/18 09:54 Dose: 200 mg Oxybutynin Chloride (Ditropan Xl) 5 mg PO DAILY [facility] Stop: 09/25/18 08:59 Last Admin: 07/27/18 09:54 Dose: 5 mg Valproate Sodium (Depakene) 500 mg PO BID [facility]; Protocol Stop: 09/25/18 08:59 Last Admin: 07/27/18 09:54 Dose: 500 mg General: demented HEENT: NC/AT, PERRLA, EOMI, anicteric sclerae, throat clear Neck: Supple, No JVD, No thyromegaly, +2 carotid pulse wo bruit, No LAD Lungs: CTAB Cardiovascular: Normal S1, Normal S2, without murmur Abdomen: soft, non-tender, non-distended Extremities: clear Neurological: no change - Procedures Procedures: Procedures Procedure Code Date GROUP PSYCHOTHERAPY 40824 08/24/15 GROUP PSYCHOTHERAPY GZHZZZZ 08/24/15 INDIVID PSYCHOTHERAP NEC 94.39 02/21/09 OTHER GROUP THERAPY 94.44 02/21/09 RECREATIONAL THERAPY 93.81 02/21/09 Internal Medicine Assmt/Plan - Assessment Assessment: 1.SEIZURE DISORDER. 2.BLADDER DYSFUNCTION. 3.DEMENTIA. 4.PSYCHOSIS. - Plan Plan: CONTINUE ON CURRENT MEDICATION AND DIET.
--- NOTE | 2018-07-28 00:59 | Psychiatric Evaluation ---
DATE OF SERVICE: PSYCHIATRIC INITIAL EVALUATION AND MENTAL STATUS EXAM PATIENT' AGE: 78. SEX: Female. PHYSICIAN: Dr. Tillman and author, Dr. Peña. CHIEF COMPLAINT: Agitation and confusion. HISTORY OF PRESENT ILLNESS: The patient is a 78-year-old female, who was transferred from [facility] because of increased agitation and because of confusion. The patient also tried to leave the facility and became agitated when staff tried to stop her. The patient also has history of narcolepsy and she has been uncooperative with her treatment. She also has been confused. The patient also is restless and she still needs close monitoring. PAST PSYCHIATRIC HISTORY: The patient has history of dementia and depression. PAST MEDICAL HISTORY: The patient has hypertension and seizure disorder. The patient also has fracture of left humerus by history. SOCIAL HISTORY: The patient lives in [facility]. The patient denies any alcohol or street drug use. ALLERGIES: CIPRO, BENADRYL AND PSEUDOEPHEDRINE. MENTAL STATUS EXAMINATION: The patient is confused and anxious. Restless. Disheveled. Flat affect and in a depressed mood. Restless and cannot sit still. Thought processes are circumstantial, but no flight of ideas. The patient denied hallucinations, but seems to be suspicious and paranoid. The patient denied any suicidal ideations or homicidal ideations. The patient is alert and oriented to time, place, person, and situation. Intact immediate, recent, and remote memories. Poor insight and poor judgment. ASSESSMENT: PRIMARY DIAGNOSIS: Unspecified psychosis. SECONDARY DIAGNOSIS: Dementia, moderate, with psychotic features. TREATMENT PLAN: We will monitor the patient's behavior and condition closely. We will start individual as well as milieu psychotherapy. We will monitor psychotropic medications. ESTIMATED LENGTH OF STAY: 5-7 days. THE PATIENT'S STRENGTHS AND WEAKNESSES: The patient's strength is not clear at this time except that she is in relatively fair health and she has support from [facility]. Weaknesses is her poor impulse control and her confusion. AFTER DISCHARGE PLAN: Outpatient treatment and followup will continue in [place] and also the patient will return there. JOB# [id number]
[2018-07-28] MEDS: Oxybutynin Chloride 5 mg ER Tab PO SCH (08:49)
[2018-07-28] MEDS: Multivitamin w/ Minerals Tab PO SCH (08:49)
--- NOTE | 2018-07-28 12:21 | Internal Medicine Prog Note ---
Internal Medicine Subjective - Subjective Service Date: 07/28/18 Patient seen and examined:: with staff Patient is:: awake, non-verbal, giovanni chair, confused Per staff patient has:: no adverse event Internal Medicine Objective - Results Result Diagrams: 07/26/18 18:40 07/26/18 18:40 Recent Labs: Laboratory Last Values WBC 5.9 Th/cmm (4.8-10.8) 07/26/18 18:40 RBC 3.82 Mil/cmm (3.80-5.20) 07/26/18 18:40 Hgb 13.5 gm/dL (12-16) 07/26/18 18:40 Hct 39.2 % (41.0-60) L 07/26/18 18:40 MCV 102.5 fl (81-100) H 07/26/18 18:40 MCH 35.4 pg (27.0-31.0) H 07/26/18 18:40 MCHC Differential 34.5 pg (28.0-36.0) 07/26/18 18:40 RDW 12.7 % (11.5-20.0) 07/26/18 18:40 Plt Count 236 Th/cmm (150-400) 07/26/18 18:40 MPV 10.1 fl 07/26/18 18:40 Neutrophils % 58.9 % (40.0-80.0) 07/26/18 18:40 Lymphocytes % 29.6 % (20.0-50.0) 07/26/18 18:40 Monocytes % 9.9 % (2.0-10.0) 07/26/18 18:40 Eosinophils % 1.3 % (0.0-5.0) 07/26/18 18:40 Basophils % 0.3 % (0.0-2.0) 07/26/18 18:40 PT 11.1 SECONDS (9.5-11.5) 07/26/18 18:40 INR 1.07 (0.5-1.4) 07/26/18 18:40 Sodium 137 mEq/L (136-145) 07/26/18 18:40 Potassium 4.4 mEq/L (3.5-5.1) 07/26/18 18:40 Chloride 103 mEq/L (98-107) 07/26/18 18:40 Carbon Dioxide 28.8 mEq/L (21.0-31.0) 07/26/18 18:40 Anion Gap 9.6 (7.0-16.0) 07/26/18 18:40 BUN 12 mg/dL (7-25) 07/26/18 18:40 Creatinine 0.6 mg/dL (0.6-1.2) 07/26/18 18:40 Est GFR ( Amer) TNP 07/26/18 18:40 Est GFR (Non-Af Amer) TNP 07/26/18 18:40 BUN/Creatinine Ratio 20.0 07/26/18 18:40 Glucose 111 mg/dL (70-105) H 07/26/18 18:40 Calcium 9.1 mg/dL (8.6-10.3) 07/26/18 18:40 Total Bilirubin 0.3 mg/dL (0.3-1.0) 07/26/18 18:40 AST 15 U/L (13-39) 07/26/18 18:40 ALT 8 U/L (7-52) 07/26/18 18:40 Alkaline Phosphatase 38 U/L (34-104) 07/26/18 18:40 Troponin I < 0.01 ng/mL (0.01-0.05) L 07/26/18 18:40 Total Protein 6.0 gm/dL (6.0-8.3) 07/26/18 18:40 Albumin 3.4 gm/dL (3.7-5.3) L 07/26/18 18:40 Globulin 2.6 gm/dL 07/26/18 18:40 Albumin/Globulin Ratio 1.3 (1.0-1.8) 07/26/18 18:40 Triglycerides 100 mg/dL (<150) 07/26/18 18:40 Cholesterol 190 mg/dL (<200) 07/26/18 18:40 LDL Cholesterol Direct 130 mg/dL (75-193) 07/26/18 18:40 HDL Cholesterol 50 mg/dL (23-92) 07/26/18 18:40 TSH 2.08 uIU/ml (0.34-5.60) 07/26/18 18:40 Urine Source CLEAN C 07/26/18 19:35 Urine Color YELLOW 07/26/18 19:35 Urine Clarity CLEAR (CLEAR) 07/26/18 19:35 Urine pH 8.0 (4.6 - 8.0) 07/26/18 19:35 Ur Specific [place] 1.015 (1.005-1.030) 07/26/18 19:35 Urine Protein NEGATIVE mg/dL (NEGATIVE) 07/26/18 19:35 Urine Glucose (UA) NEGATIVE mg/dL (NEGATIVE) 07/26/18 19:35 Urine Ketones NEGATIVE mg/dL (NEGATIVE) 07/26/18 19:35 Urine Blood NEGATIVE (NEGATIVE) 07/26/18 19:35 Urine Nitrate NEGATIVE (NEGATIVE) 07/26/18 19:35 Urine Bilirubin NEGATIVE (NEGATIVE) 07/26/18 19:35 Urine Urobilinogen 1.0 E.U./dL (0.2 - 1.0) 07/26/18 19:35 Ur Leukocyte Esterase TRACE (NEGATIVE) H 07/26/18 19:35 Urine RBC NONE SEEN /hpf (0-5) 07/26/18 19:35 Urine WBC 2-5 /hpf (0-5) 07/26/18 19:35 Ur Epithelial Cells FEW /lpf (FEW) 07/26/18 19:35 Urine Bacteria FEW /hpf (NONE SEEN) 07/26/18 19:35 Valproic Acid 43.6 ug/mL (50.0-100.0) L 07/26/18 18:40 - Physical Exam Vitals and I&O: Vital Signs Temp 97.2 F 07/28/18 06:34 Pulse 64 07/28/18 06:34 Resp 18 07/28/18 06:34 BP 109/60 07/28/18 06:34 Pulse Ox 97 07/28/18 06:34 Intake & Output 07/27/18 07/28/18 07/28/18 18:59 06:59 18:59 Intake Total 1200 120 Balance 1200 120 Intake: Oral 1200 120 Other: # Voids 5 2 # Bowel Movements 1 0 Active Medications: Current Medications Acetaminophen (Tylenol) 650 mg PO Q4HR PRN PRN Reason: Pain (Mild) Stop: 09/24/18 21:11 Alendronate Sodium (Fosamax) 70 mg PO Sa@0730 [facility] Stop: 09/24/18 21:14 Docusate Sodium (Colace) 100 mg PO BID [facility] Stop: 09/25/18 08:59 Last Admin: 07/28/18 08:49 Dose: 100 mg Donepezil HCl (Aricept) 10 mg PO HS [facility] Stop: 09/25/18 20:59 Last Admin: 07/27/18 20:46 Dose: 10 mg Levetiracetam (Keppra) 500 mg PO BID [facility] Stop: 09/25/18 08:59 Last Admin: 07/28/18 08:49 Dose: 500 mg Magnesium Hydroxide (Milk Of Magnesia) 30 ml PO DAILY PRN PRN Reason: Constipation Stop: 09/24/18 21:11 Modafinil (Provigil) 200 mg PO DAILY [facility]; Protocol Stop: 09/25/18 08:59 Last Admin: 07/28/18 08:49 Dose: 200 mg Oxybutynin Chloride (Ditropan Xl) 5 mg PO DAILY [facility] Stop: 09/25/18 08:59 Last Admin: 07/28/18 08:49 Dose: 5 mg Valproate Sodium (Depakene) 500 mg PO BID [facility]; Protocol Stop: 09/25/18 08:59 Last Admin: 07/28/18 08:48 Dose: 500 mg General: demented HEENT: NC/AT, PERRLA, EOMI, anicteric sclerae, throat clear Neck: Supple, No JVD, No thyromegaly, +2 carotid pulse wo bruit, No LAD Lungs: CTAB Cardiovascular: Normal S1, Normal S2, without murmur Abdomen: soft, non-tender, non-distended Extremities: clear Neurological: no change - Procedures Procedures: Procedures Procedure Code Date GROUP PSYCHOTHERAPY 15408 08/24/15 GROUP PSYCHOTHERAPY GZHZZZZ 08/24/15 INDIVID PSYCHOTHERAP NEC 94.39 02/21/09 OTHER GROUP THERAPY 94.44 02/21/09 RECREATIONAL THERAPY 93.81 02/21/09 Internal Medicine Assmt/Plan - Assessment Assessment: 1.SEIZURE DISORDER. 2.BLADDER DYSFUNCTION. 3.DEMENTIA. 4.PSYCHOSIS. - Plan Plan: CONTINUE ON CURRENT MEDICATION AND DIET.
--- NOTE | 2018-07-28 14:50 | Progress Notes ---
DATE: 07/28/2018 SUBJECTIVE: Case was discussed with staff of the patient, reviewed records. This is a 78-year-old female who was admitted on 07/26/2018, sent back from [place] because of agitation and confusion. The patient transferred because of increasing agitation, confusion, tried to leave the facility and became agitated, tried to stop her. The patient has a history of narcolepsy and she has been uncooperative with treatment. She has been confused, restless, also with a history of dementia. The patient is well known case to me, I have been seeing her for the past few years and her condition has been deteriorating slowly with her history of dementia worse. She is on Depakote 500 mg twice a day and Keppra 500 mg twice a day, Aricept 10 mg at bedtime and the patient continues to have poor insight, continues to be unpredictable, impulsive, needing redirection. No side effects with the medication, no sedation, no nausea and we will continue with the patient in group therapy, milieu therapy, and adjust medications as needed. [facility]# [id number]
[2018-07-29] MEDS: Multivitamin w/ Minerals Tab PO SCH (10:00)
[2018-07-29] MEDS: Oxybutynin Chloride 5 mg ER Tab PO SCH (10:00)
--- NOTE | 2018-07-29 12:38 | Progress Notes ---
DATE: 07/29/2018 SUMMARY: Case was discussed with staff of the patient and reviewed records. The patient continues to have poor insight, unpredictable, and impulsive, needing redirection. She is demented and confused, needing help with her ADLs, needing redirection. She is on Provigil 200 mg daily to help with her narcolepsy, oxybutynin to help with her incontinence, and Depakote 500 mg twice a day. She is unable to make safe plan for her self-care. Lab work showed CBC with low hematocrit, high MCV, high MCH, and her chemistry panel with high blood sugar and low albumin. Urinalysis within normal range with trace of leukocyte esterase. Depakote level was 43.6. ____ is 10.4, which is within acceptable therapeutic range. No side effects to the medication, no sedation, no nausea, no extrapyramidal symptoms. We will continue to have the patient in group therapy, milieu therapy, and adjust the medication as needed. [facility]# [id number]
--- NOTE | 2018-07-29 20:32 | Internal Medicine Prog Note ---
Internal Medicine Subjective - Subjective Service Date: 07/29/18 Patient seen and examined:: with staff Patient is:: awake, non-verbal, giovanni chair, confused Per staff patient has:: no adverse event Internal Medicine Objective - Results Result Diagrams: 07/26/18 18:40 07/26/18 18:40 Recent Labs: Laboratory Last Values WBC 5.9 Th/cmm (4.8-10.8) 07/26/18 18:40 RBC 3.82 Mil/cmm (3.80-5.20) 07/26/18 18:40 Hgb 13.5 gm/dL (12-16) 07/26/18 18:40 Hct 39.2 % (41.0-60) L 07/26/18 18:40 MCV 102.5 fl (81-100) H 07/26/18 18:40 MCH 35.4 pg (27.0-31.0) H 07/26/18 18:40 MCHC Differential 34.5 pg (28.0-36.0) 07/26/18 18:40 RDW 12.7 % (11.5-20.0) 07/26/18 18:40 Plt Count 236 Th/cmm (150-400) 07/26/18 18:40 MPV 10.1 fl 07/26/18 18:40 Neutrophils % 58.9 % (40.0-80.0) 07/26/18 18:40 Lymphocytes % 29.6 % (20.0-50.0) 07/26/18 18:40 Monocytes % 9.9 % (2.0-10.0) 07/26/18 18:40 Eosinophils % 1.3 % (0.0-5.0) 07/26/18 18:40 Basophils % 0.3 % (0.0-2.0) 07/26/18 18:40 PT 11.1 SECONDS (9.5-11.5) 07/26/18 18:40 INR 1.07 (0.5-1.4) 07/26/18 18:40 Sodium 137 mEq/L (136-145) 07/26/18 18:40 Potassium 4.4 mEq/L (3.5-5.1) 07/26/18 18:40 Chloride 103 mEq/L (98-107) 07/26/18 18:40 Carbon Dioxide 28.8 mEq/L (21.0-31.0) 07/26/18 18:40 Anion Gap 9.6 (7.0-16.0) 07/26/18 18:40 BUN 12 mg/dL (7-25) 07/26/18 18:40 Creatinine 0.6 mg/dL (0.6-1.2) 07/26/18 18:40 Est GFR ( Amer) TNP 07/26/18 18:40 Est GFR (Non-Af Amer) TNP 07/26/18 18:40 BUN/Creatinine Ratio 20.0 07/26/18 18:40 Glucose 111 mg/dL (70-105) H 07/26/18 18:40 Calcium 9.1 mg/dL (8.6-10.3) 07/26/18 18:40 Total Bilirubin 0.3 mg/dL (0.3-1.0) 07/26/18 18:40 AST 15 U/L (13-39) 07/26/18 18:40 ALT 8 U/L (7-52) 07/26/18 18:40 Alkaline Phosphatase 38 U/L (34-104) 07/26/18 18:40 Troponin I < 0.01 ng/mL (0.01-0.05) L 07/26/18 18:40 Total Protein 6.0 gm/dL (6.0-8.3) 07/26/18 18:40 Albumin 3.4 gm/dL (3.7-5.3) L 07/26/18 18:40 Globulin 2.6 gm/dL 07/26/18 18:40 Albumin/Globulin Ratio 1.3 (1.0-1.8) 07/26/18 18:40 Triglycerides 100 mg/dL (<150) 07/26/18 18:40 Cholesterol 190 mg/dL (<200) 07/26/18 18:40 LDL Cholesterol Direct 130 mg/dL (75-193) 07/26/18 18:40 HDL Cholesterol 50 mg/dL (23-92) 07/26/18 18:40 TSH 2.08 uIU/ml (0.34-5.60) 07/26/18 18:40 Urine Source CLEAN C 07/26/18 19:35 Urine Color YELLOW 07/26/18 19:35 Urine Clarity CLEAR (CLEAR) 07/26/18 19:35 Urine pH 8.0 (4.6 - 8.0) 07/26/18 19:35 Ur Specific [place] 1.015 (1.005-1.030) 07/26/18 19:35 Urine Protein NEGATIVE mg/dL (NEGATIVE) 07/26/18 19:35 Urine Glucose (UA) NEGATIVE mg/dL (NEGATIVE) 07/26/18 19:35 Urine Ketones NEGATIVE mg/dL (NEGATIVE) 07/26/18 19:35 Urine Blood NEGATIVE (NEGATIVE) 07/26/18 19:35 Urine Nitrate NEGATIVE (NEGATIVE) 07/26/18 19:35 Urine Bilirubin NEGATIVE (NEGATIVE) 07/26/18 19:35 Urine Urobilinogen 1.0 E.U./dL (0.2 - 1.0) 07/26/18 19:35 Ur Leukocyte Esterase TRACE (NEGATIVE) H 07/26/18 19:35 Urine RBC NONE SEEN /hpf (0-5) 07/26/18 19:35 Urine WBC 2-5 /hpf (0-5) 07/26/18 19:35 Ur Epithelial Cells FEW /lpf (FEW) 07/26/18 19:35 Urine Bacteria FEW /hpf (NONE SEEN) 07/26/18 19:35 Valproic Acid 43.6 ug/mL (50.0-100.0) L 07/26/18 18:40 Levetiracetam 10.4 ug/mL (10.0-40.0) 07/26/18 18:40 - Physical Exam Vitals and I&O: Vital Signs Temp 97.6 F 07/29/18 14:00 Pulse 68 07/29/18 14:00 Resp 20 07/29/18 14:00 BP 128/69 07/29/18 14:00 Pulse Ox 98 07/29/18 14:00 Intake & Output 07/29/18 07/29/18 07/30/18 06:59 18:59 06:59 Intake Total 120 1200 Balance 120 1200 Intake: Oral 120 1200 Other: # Voids 3 3 # Bowel Movements 0 Active Medications: Current Medications Acetaminophen (Tylenol) 650 mg PO Q4HR PRN PRN Reason: Pain (Mild) Stop: 09/24/18 21:11 Alendronate Sodium (Fosamax) 70 mg PO Sa@0730 [facility] Stop: 09/24/18 21:14 Docusate Sodium (Colace) 100 mg PO BID [facility] Stop: 09/25/18 08:59 Last Admin: 07/29/18 16:54 Dose: 100 mg Donepezil HCl (Aricept) 10 mg PO HS [facility] Stop: 09/25/18 20:59 Last Admin: 07/29/18 20:25 Dose: 10 mg Levetiracetam (Keppra) 500 mg PO BID [facility] Stop: 09/25/18 08:59 Last Admin: 07/29/18 16:54 Dose: 500 mg Magnesium Hydroxide (Milk Of Magnesia) 30 ml PO DAILY PRN PRN Reason: Constipation Stop: 09/24/18 21:11 Modafinil (Provigil) 200 mg PO DAILY [facility]; Protocol Stop: 09/25/18 08:59 Last Admin: 07/29/18 10:00 Dose: 200 mg Oxybutynin Chloride (Ditropan Xl) 5 mg PO DAILY [facility] Stop: 09/25/18 08:59 Last Admin: 07/29/18 10:00 Dose: 5 mg Valproate Sodium (Depakene) 500 mg PO BID [facility]; Protocol Stop: 09/25/18 08:59 Last Admin: 07/29/18 16:54 Dose: 500 mg General: demented HEENT: NC/AT, PERRLA, EOMI, anicteric sclerae, throat clear Neck: Supple, No JVD, No thyromegaly, +2 carotid pulse wo bruit, No LAD Lungs: CTAB Cardiovascular: Normal S1, Normal S2, without murmur Abdomen: soft, non-tender, non-distended Extremities: clear Neurological: no change - Procedures Procedures: Procedures Procedure Code Date GROUP PSYCHOTHERAPY 63116 08/24/15 GROUP PSYCHOTHERAPY GZHZZZZ 08/24/15 INDIVID PSYCHOTHERAP NEC 94.39 02/21/09 OTHER GROUP THERAPY 94.44 02/21/09 RECREATIONAL THERAPY 93.81 02/21/09 Internal Medicine Assmt/Plan - Assessment Assessment: 1.SEIZURE DISORDER. 2.BLADDER DYSFUNCTION. 3.DEMENTIA. 4.PSYCHOSIS. - Plan Plan: CONTINUE ON CURRENT MEDICATION AND DIET.
--- NOTE | 2018-07-30 18:59 | Internal Medicine Prog Note ---
Internal Medicine Subjective - Subjective Service Date: 07/30/18 Patient seen and examined:: with staff Patient is:: awake, non-verbal, giovanni chair, confused Per staff patient has:: no adverse event Internal Medicine Objective - Results Result Diagrams: 07/26/18 18:40 07/26/18 18:40 Recent Labs: Laboratory Last Values WBC 5.9 Th/cmm (4.8-10.8) 07/26/18 18:40 RBC 3.82 Mil/cmm (3.80-5.20) 07/26/18 18:40 Hgb 13.5 gm/dL (12-16) 07/26/18 18:40 Hct 39.2 % (41.0-60) L 07/26/18 18:40 MCV 102.5 fl (81-100) H 07/26/18 18:40 MCH 35.4 pg (27.0-31.0) H 07/26/18 18:40 MCHC Differential 34.5 pg (28.0-36.0) 07/26/18 18:40 RDW 12.7 % (11.5-20.0) 07/26/18 18:40 Plt Count 236 Th/cmm (150-400) 07/26/18 18:40 MPV 10.1 fl 07/26/18 18:40 Neutrophils % 58.9 % (40.0-80.0) 07/26/18 18:40 Lymphocytes % 29.6 % (20.0-50.0) 07/26/18 18:40 Monocytes % 9.9 % (2.0-10.0) 07/26/18 18:40 Eosinophils % 1.3 % (0.0-5.0) 07/26/18 18:40 Basophils % 0.3 % (0.0-2.0) 07/26/18 18:40 PT 11.1 SECONDS (9.5-11.5) 07/26/18 18:40 INR 1.07 (0.5-1.4) 07/26/18 18:40 Sodium 137 mEq/L (136-145) 07/26/18 18:40 Potassium 4.4 mEq/L (3.5-5.1) 07/26/18 18:40 Chloride 103 mEq/L (98-107) 07/26/18 18:40 Carbon Dioxide 28.8 mEq/L (21.0-31.0) 07/26/18 18:40 Anion Gap 9.6 (7.0-16.0) 07/26/18 18:40 BUN 12 mg/dL (7-25) 07/26/18 18:40 Creatinine 0.6 mg/dL (0.6-1.2) 07/26/18 18:40 Est GFR ( Amer) TNP 07/26/18 18:40 Est GFR (Non-Af Amer) TNP 07/26/18 18:40 BUN/Creatinine Ratio 20.0 07/26/18 18:40 Glucose 111 mg/dL (70-105) H 07/26/18 18:40 Calcium 9.1 mg/dL (8.6-10.3) 07/26/18 18:40 Total Bilirubin 0.3 mg/dL (0.3-1.0) 07/26/18 18:40 AST 15 U/L (13-39) 07/26/18 18:40 ALT 8 U/L (7-52) 07/26/18 18:40 Alkaline Phosphatase 38 U/L (34-104) 07/26/18 18:40 Troponin I < 0.01 ng/mL (0.01-0.05) L 07/26/18 18:40 Total Protein 6.0 gm/dL (6.0-8.3) 07/26/18 18:40 Albumin 3.4 gm/dL (3.7-5.3) L 07/26/18 18:40 Globulin 2.6 gm/dL 07/26/18 18:40 Albumin/Globulin Ratio 1.3 (1.0-1.8) 07/26/18 18:40 Triglycerides 100 mg/dL (<150) 07/26/18 18:40 Cholesterol 190 mg/dL (<200) 07/26/18 18:40 LDL Cholesterol Direct 130 mg/dL (75-193) 07/26/18 18:40 HDL Cholesterol 50 mg/dL (23-92) 07/26/18 18:40 TSH 2.08 uIU/ml (0.34-5.60) 07/26/18 18:40 Urine Source CLEAN C 07/26/18 19:35 Urine Color YELLOW 07/26/18 19:35 Urine Clarity CLEAR (CLEAR) 07/26/18 19:35 Urine pH 8.0 (4.6 - 8.0) 07/26/18 19:35 Ur Specific [place] 1.015 (1.005-1.030) 07/26/18 19:35 Urine Protein NEGATIVE mg/dL (NEGATIVE) 07/26/18 19:35 Urine Glucose (UA) NEGATIVE mg/dL (NEGATIVE) 07/26/18 19:35 Urine Ketones NEGATIVE mg/dL (NEGATIVE) 07/26/18 19:35 Urine Blood NEGATIVE (NEGATIVE) 07/26/18 19:35 Urine Nitrate NEGATIVE (NEGATIVE) 07/26/18 19:35 Urine Bilirubin NEGATIVE (NEGATIVE) 07/26/18 19:35 Urine Urobilinogen 1.0 E.U./dL (0.2 - 1.0) 07/26/18 19:35 Ur Leukocyte Esterase TRACE (NEGATIVE) H 07/26/18 19:35 Urine RBC NONE SEEN /hpf (0-5) 07/26/18 19:35 Urine WBC 2-5 /hpf (0-5) 07/26/18 19:35 Ur Epithelial Cells FEW /lpf (FEW) 07/26/18 19:35 Urine Bacteria FEW /hpf (NONE SEEN) 07/26/18 19:35 Valproic Acid 43.6 ug/mL (50.0-100.0) L 07/26/18 18:40 Levetiracetam 10.4 ug/mL (10.0-40.0) 07/26/18 18:40 - Physical Exam Vitals and I&O: Vital Signs Temp 98.0 F 07/30/18 14:00 Pulse 77 07/30/18 14:00 Resp 20 07/30/18 14:00 BP 113/66 07/30/18 14:00 Pulse Ox 97 07/30/18 14:00 Intake & Output 07/29/18 07/30/18 07/30/18 18:59 06:59 18:59 Intake Total 6575 949 2384 Balance 4374 346 8176 Weight (lbs) 89.811 kg Intake: Oral 3646 391 2856 Other: # Voids 3 3 # Bowel Movements 0 0 2 Weight Source Bedscale Active Medications: Current Medications Acetaminophen (Tylenol) 650 mg PO Q4HR PRN PRN Reason: Pain (Mild) Stop: 09/24/18 21:11 Alendronate Sodium (Fosamax) 70 mg PO Sa@0730 [facility] Stop: 09/24/18 21:14 Docusate Sodium (Colace) 100 mg PO BID [facility] Stop: 09/25/18 08:59 Last Admin: 07/30/18 17:28 Dose: 100 mg Donepezil HCl (Aricept) 10 mg PO HS [facility] Stop: 09/25/18 20:59 Last Admin: 07/29/18 20:25 Dose: 10 mg Levetiracetam (Keppra) 500 mg PO BID [facility] Stop: 09/25/18 08:59 Last Admin: 07/30/18 17:29 Dose: 500 mg Magnesium Hydroxide (Milk Of Magnesia) 30 ml PO DAILY PRN PRN Reason: Constipation Stop: 09/24/18 21:11 Modafinil (Provigil) 200 mg PO DAILY [facility]; Protocol Stop: 09/25/18 08:59 Last Admin: 07/29/18 10:00 Dose: 200 mg Oxybutynin Chloride (Ditropan Xl) 5 mg PO DAILY [facility] Stop: 09/25/18 08:59 Last Admin: 07/29/18 10:00 Dose: 5 mg Valproate Sodium (Depakene) 500 mg PO BID [facility]; Protocol Stop: 09/25/18 08:59 Last Admin: 07/30/18 17:29 Dose: 500 mg General: demented HEENT: NC/AT, PERRLA, EOMI, anicteric sclerae, throat clear Neck: Supple, No JVD, No thyromegaly, +2 carotid pulse wo bruit, No LAD Lungs: CTAB Cardiovascular: Normal S1, Normal S2, without murmur Abdomen: soft, non-tender, non-distended Extremities: clear Neurological: no change - Procedures Procedures: Procedures Procedure Code Date GROUP PSYCHOTHERAPY 80174 08/24/15 GROUP PSYCHOTHERAPY GZHZZZZ 08/24/15 INDIVID PSYCHOTHERAP NEC 94.39 02/21/09 OTHER GROUP THERAPY 94.44 02/21/09 RECREATIONAL THERAPY 93.81 02/21/09 Internal Medicine Assmt/Plan - Assessment Assessment: 1.SEIZURE DISORDER. 2.BLADDER DYSFUNCTION. 3.DEMENTIA. 4.PSYCHOSIS. - Plan Plan: CONTINUE ON CURRENT MEDICATION AND DIET. Nutritional Asmnt/Malnutr-PDOC - Dietary Evaluation Malnutrition Findings (Please click <Entered> for more info): Nutritional Asmnt/Malnutrition Start: 07/30/18 15: 46 Text: Status: Complete Freq: Protocol: Document 07/30/18 15:46 [place] (Rec: 07/30/18 15:59 LCKENNETH [id number]) Nutritional Asmnt/Malnutrition Patient General Information Nutritional Screening Moderate Risk Diagnosis psychosis NOS Pertinent Medical Hx/Surgical Hx seizure, dementia, bladder dysfunction, psychosis Subjective Information pt seen sitting up in bed at time of viist, fed by STAMP MAKER. Pt appeared weak. Per EMR, PO intake 75-100%. Current Diet Order/ Nutrition Support [facility] soft ground JOVAN Pertinent Medications colace Pertinent Labs 07/26 glucose 111, alb 3.4 Nutritional Hx/Data Height 1.6 m Height (Calculated Centimeters) 160.0 Current Weight (lbs) 89.811 kg Weight (Calculated Kilograms) 89.8 Weight (Calculated Grams) 57521.3 [place] Body Weight 115 Body Mass Index (BMI) 35.0 Weight Status Obese GI Symptoms GI Symptoms None Last BM 07/27 Difficult in: None Skin Integrity/Comment: intact Current %PO Good (75-100%) Estimated Nutritional Goals BEE in Kcals: Adj wt of IBW Calories/Kcals/Kg 25-30 adj wt 62kg Kcals Calculated 6945-9018 Protein: Adj wt of IBW Protein g/k Protein Calculated 68 Fluid: ml 1550-1860ml (1ml/kcal) Nutritional Problem No current Nutrition Prob Problem N/A Malnutrition Alert Is there a minimum of two criteria No selected? Query Text:Check all the applicable criteria. A minimum of two criteria are recommended for diagnosis of either severe or non-severe malnutrition. Malnutrition Related to Morbid Obesity Malnutrition related to morbid obesity No Intervention/Recommendation Comments 1. Continue with [facility] soft ground JOVAN diet as ordered. Nurse to assist pt with meals. 2. Monitor PO intake, wt, labs and skin integrity 3. F/U as low risk in 7 days Expected Outcomes/Goals Expected Outcomes/Goals 1. PO intake to meet at least 75% of nutritional needs. 2. Wt stability, skin to remain intact, labs to approach WNL.
--- NOTE | 2018-07-30 20:44 | Progress Notes ---
DATE: 07/30/2018 SUMMARY: Case was discussed with staff of the patient and reviewed records. The patient continues to stay in bed with poor energy and motivation, though she is ____. She is demented, confused, unable to participate in meaningful conversation or make safe plan for self-care. She is sleeping well, had to be prompted to eat. No side effects of the medication and TSH level within normal range. Chemistry panel with high blood sugar, low albumin, the rest within normal range. CBC with low hematocrit, high MCV, high MCH. Urinalysis, trace of leukocytic esterase. Depakote level was 44.6, which is low and ____ is 10.4, which is within acceptable therapeutic range and will continue to have the patient in group therapy, milieu therapy, and adjust the medication as needed. JOB# [id number]
[2018-07-31] MEDS: Oxybutynin Chloride 5 mg ER Tab PO SCH (10:00)
[2018-07-31] MEDS: Multivitamin w/ Minerals Tab PO SCH ×2 (10:00→10:27)
--- NOTE | 2018-07-31 16:57 | Internal Medicine Prog Note ---
Internal Medicine Subjective - Subjective Service Date: 07/31/18 Patient seen and examined:: with staff Patient is:: awake, non-verbal, giovanni chair, confused Per staff patient has:: no adverse event Internal Medicine Objective - Results Result Diagrams: 07/26/18 18:40 07/26/18 18:40 Recent Labs: Laboratory Last Values WBC 5.9 Th/cmm (4.8-10.8) 07/26/18 18:40 RBC 3.82 Mil/cmm (3.80-5.20) 07/26/18 18:40 Hgb 13.5 gm/dL (12-16) 07/26/18 18:40 Hct 39.2 % (41.0-60) L 07/26/18 18:40 MCV 102.5 fl (81-100) H 07/26/18 18:40 MCH 35.4 pg (27.0-31.0) H 07/26/18 18:40 MCHC Differential 34.5 pg (28.0-36.0) 07/26/18 18:40 RDW 12.7 % (11.5-20.0) 07/26/18 18:40 Plt Count 236 Th/cmm (150-400) 07/26/18 18:40 MPV 10.1 fl 07/26/18 18:40 Neutrophils % 58.9 % (40.0-80.0) 07/26/18 18:40 Lymphocytes % 29.6 % (20.0-50.0) 07/26/18 18:40 Monocytes % 9.9 % (2.0-10.0) 07/26/18 18:40 Eosinophils % 1.3 % (0.0-5.0) 07/26/18 18:40 Basophils % 0.3 % (0.0-2.0) 07/26/18 18:40 PT 11.1 SECONDS (9.5-11.5) 07/26/18 18:40 INR 1.07 (0.5-1.4) 07/26/18 18:40 Sodium 137 mEq/L (136-145) 07/26/18 18:40 Potassium 4.4 mEq/L (3.5-5.1) 07/26/18 18:40 Chloride 103 mEq/L (98-107) 07/26/18 18:40 Carbon Dioxide 28.8 mEq/L (21.0-31.0) 07/26/18 18:40 Anion Gap 9.6 (7.0-16.0) 07/26/18 18:40 BUN 12 mg/dL (7-25) 07/26/18 18:40 Creatinine 0.6 mg/dL (0.6-1.2) 07/26/18 18:40 Est GFR ( Amer) TNP 07/26/18 18:40 Est GFR (Non-Af Amer) TNP 07/26/18 18:40 BUN/Creatinine Ratio 20.0 07/26/18 18:40 Glucose 111 mg/dL (70-105) H 07/26/18 18:40 Calcium 9.1 mg/dL (8.6-10.3) 07/26/18 18:40 Total Bilirubin 0.3 mg/dL (0.3-1.0) 07/26/18 18:40 AST 15 U/L (13-39) 07/26/18 18:40 ALT 8 U/L (7-52) 07/26/18 18:40 Alkaline Phosphatase 38 U/L (34-104) 07/26/18 18:40 Troponin I < 0.01 ng/mL (0.01-0.05) L 07/26/18 18:40 Total Protein 6.0 gm/dL (6.0-8.3) 07/26/18 18:40 Albumin 3.4 gm/dL (3.7-5.3) L 07/26/18 18:40 Globulin 2.6 gm/dL 07/26/18 18:40 Albumin/Globulin Ratio 1.3 (1.0-1.8) 07/26/18 18:40 Triglycerides 100 mg/dL (<150) 07/26/18 18:40 Cholesterol 190 mg/dL (<200) 07/26/18 18:40 LDL Cholesterol Direct 130 mg/dL (75-193) 07/26/18 18:40 HDL Cholesterol 50 mg/dL (23-92) 07/26/18 18:40 TSH 2.08 uIU/ml (0.34-5.60) 07/26/18 18:40 Urine Source CLEAN C 07/26/18 19:35 Urine Color YELLOW 07/26/18 19:35 Urine Clarity CLEAR (CLEAR) 07/26/18 19:35 Urine pH 8.0 (4.6 - 8.0) 07/26/18 19:35 Ur Specific [place] 1.015 (1.005-1.030) 07/26/18 19:35 Urine Protein NEGATIVE mg/dL (NEGATIVE) 07/26/18 19:35 Urine Glucose (UA) NEGATIVE mg/dL (NEGATIVE) 07/26/18 19:35 Urine Ketones NEGATIVE mg/dL (NEGATIVE) 07/26/18 19:35 Urine Blood NEGATIVE (NEGATIVE) 07/26/18 19:35 Urine Nitrate NEGATIVE (NEGATIVE) 07/26/18 19:35 Urine Bilirubin NEGATIVE (NEGATIVE) 07/26/18 19:35 Urine Urobilinogen 1.0 E.U./dL (0.2 - 1.0) 07/26/18 19:35 Ur Leukocyte Esterase TRACE (NEGATIVE) H 07/26/18 19:35 Urine RBC NONE SEEN /hpf (0-5) 07/26/18 19:35 Urine WBC 2-5 /hpf (0-5) 07/26/18 19:35 Ur Epithelial Cells FEW /lpf (FEW) 07/26/18 19:35 Urine Bacteria FEW /hpf (NONE SEEN) 07/26/18 19:35 Valproic Acid 43.6 ug/mL (50.0-100.0) L 07/26/18 18:40 Levetiracetam 10.4 ug/mL (10.0-40.0) 07/26/18 18:40 - Physical Exam Vitals and I&O: Vital Signs Temp 98.0 F 07/31/18 14:00 Pulse 79 07/31/18 14:00 Resp 18 07/31/18 14:00 BP 108/77 07/31/18 14:00 Pulse Ox 98 07/31/18 14:00 Intake & Output 07/30/18 07/31/18 07/31/18 18:59 06:59 18:59 Intake Total 1200 Balance 1200 Intake: Oral 1200 Other: # Bowel Movements 2 Active Medications: Current Medications Acetaminophen (Tylenol) 650 mg PO Q4HR PRN PRN Reason: Pain (Mild) Stop: 09/24/18 21:11 Alendronate Sodium (Fosamax) 70 mg PO Sa@0730 [facility] Stop: 09/24/18 21:14 Last Admin: 07/31/18 11:25 Dose: Not Given Docusate Sodium (Colace) 100 mg PO BID [facility] Stop: 09/25/18 08:59 Last Admin: 07/31/18 10:00 Dose: 100 mg Donepezil HCl (Aricept) 10 mg PO HS [facility] Stop: 09/25/18 20:59 Last Admin: 07/30/18 20:48 Dose: 10 mg Levetiracetam (Keppra) 500 mg PO BID [facility] Stop: 09/25/18 08:59 Last Admin: 07/31/18 10:00 Dose: 500 mg Magnesium Hydroxide (Milk Of Magnesia) 30 ml PO DAILY PRN PRN Reason: Constipation Stop: 09/24/18 21:11 Modafinil (Provigil) 200 mg PO DAILY [facility]; Protocol Stop: 09/25/18 08:59 Last Admin: 07/31/18 10:26 Dose: 200 mg Oxybutynin Chloride (Ditropan Xl) 5 mg PO DAILY [facility] Stop: 09/25/18 08:59 Last Admin: 07/31/18 10:00 Dose: 5 mg Valproate Sodium (Depakene) 500 mg PO BID [facility]; Protocol Stop: 09/25/18 08:59 Last Admin: 07/31/18 10:00 Dose: 500 mg General: demented HEENT: NC/AT, PERRLA, EOMI, anicteric sclerae, throat clear Neck: Supple, No JVD, No thyromegaly, +2 carotid pulse wo bruit, No LAD Lungs: CTAB Cardiovascular: Normal S1, Normal S2, without murmur Abdomen: soft, non-tender, non-distended Extremities: clear Neurological: no change - Procedures Procedures: Procedures Procedure Code Date GROUP PSYCHOTHERAPY 57683 08/24/15 GROUP PSYCHOTHERAPY GZHZZZZ 08/24/15 INDIVID PSYCHOTHERAP NEC 94.39 02/21/09 OTHER GROUP THERAPY 94.44 02/21/09 RECREATIONAL THERAPY 93.81 02/21/09 Internal Medicine Assmt/Plan - Assessment Assessment: 1.SEIZURE DISORDER. 2.BLADDER DYSFUNCTION. 3.DEMENTIA. 4.PSYCHOSIS. - Plan Plan: CONTINUE ON CURRENT MEDICATION AND DIET. Nutritional Asmnt/Malnutr-PDOC - Dietary Evaluation Malnutrition Findings (Please click <Entered> for more info): Nutritional Asmnt/Malnutrition Start: 07/30/18 15: 46 Text: Status: Complete Freq: Protocol: Document 07/30/18 15:46 LCKENNETH (Rec: 07/30/18 15:59 LCKENNETH [email or web address]) Nutritional Asmnt/Malnutrition Patient General Information Nutritional Screening Moderate Risk Diagnosis psychosis NOS Pertinent Medical Hx/Surgical Hx seizure, dementia, bladder dysfunction, psychosis Subjective Information pt seen sitting up in bed at time of viist, fed by MED SPA MANAGER. Pt appeared weak. Per EMR, PO intake 75-100%. Current Diet Order/ Nutrition Support [facility] soft ground JOVAN Pertinent Medications colace Pertinent Labs 07/26 glucose 111, alb 3.4 Nutritional Hx/Data Height 1.6 m Height (Calculated Centimeters) 160.0 Current Weight (lbs) 89.811 kg Weight (Calculated Kilograms) 89.8 Weight (Calculated Grams) 34994.3 [place] Body Weight 115 Body Mass Index (BMI) 35.0 Weight Status Obese GI Symptoms GI Symptoms None Last BM 07/27 Difficult in: None Skin Integrity/Comment: intact Current %PO Good (75-100%) Estimated Nutritional Goals BEE in Kcals: Adj wt of IBW Calories/Kcals/Kg 25-30 adj wt 62kg Kcals Calculated 8167-0993 Protein: Adj wt of IBW Protein g/k Protein Calculated 68 Fluid: ml 1550-1860ml (1ml/kcal) Nutritional Problem No current Nutrition Prob Problem N/A Malnutrition Alert Is there a minimum of two criteria No selected? Query Text:Check all the applicable criteria. A minimum of two criteria are recommended for diagnosis of either severe or non-severe malnutrition. Malnutrition Related to Morbid Obesity Malnutrition related to morbid obesity No Intervention/Recommendation Comments 1. Continue with the [facility] soft [facility] JOVAN diet as ordered. Nurse to assist pt with meals. 2. Monitor PO intake, wt, labs and skin integrity 3. F/U as low risk in 7 days Expected Outcomes/Goals Expected Outcomes/Goals 1. PO intake to meet at least 75% of nutritional needs. 2. Wt stability, skin to remain intact, labs to approach WNL.
--- NOTE | 2018-07-31 21:41 | Progress Notes ---
DATE: 07/31/2018 SUBJECTIVE: A 78-year-old female transferred from [place] increased agitation, confusion, tried to apparently leave the facility. On [id number], the patient is confused, restless, poor historian, not wanting to talk to me, noted to be confused, needing prompting to eat, self-care. Staff noting she slept fairly well, but very disoriented, impulsive, unpredictable, concerns that she may lash out and she gets easily agitated. ASSESSMENT: The patient remains asymptomatic, still unruly, easily agitated. PLAN: We will continue to monitor, titrate and adjust medications. Given her ongoing symptoms, she is not safe for discharge. JOB# [id number]
[2018-08-01] MEDS: Oxybutynin Chloride 5 mg ER Tab PO SCH (08:33)
[2018-08-01] MEDS: Multivitamin w/ Minerals Tab PO SCH (08:33)
--- NOTE | 2018-08-01 16:26 | Progress Notes ---
DATE: 08/01/2018 SUBJECTIVE: The patient coming in from [place], increased confusion and agitation. On [id number], the patient is not amenable to interview; sleeping, arousable, but does not want to talk to me. Needing frequent reorientation per staff, very confused, disoriented, impoverished thought processes, at times mumbling to self, responding to internal stimuli, slept fairly well last night, eating with prompting. Medications were noted. Currently on Aricept. ASSESSMENT: The patient is confused, disoriented, at times irritable, acting out behaviors, needing a higher level of care. PLAN: We will continue to monitor, titrate and adjust medications. JOB# [id number]
--- NOTE | 2018-08-01 22:19 | Internal Medicine Prog Note ---
Internal Medicine Subjective - Subjective Service Date: 08/01/18 Patient seen and examined:: without staff Patient is:: awake, non-verbal, giovanni chair, confused Per staff patient has:: no adverse event Internal Medicine Objective - Results Result Diagrams: 07/26/18 18:40 07/26/18 18:40 Recent Labs: Laboratory Last Values WBC 5.9 Th/cmm (4.8-10.8) 07/26/18 18:40 RBC 3.82 Mil/cmm (3.80-5.20) 07/26/18 18:40 Hgb 13.5 gm/dL (12-16) 07/26/18 18:40 Hct 39.2 % (41.0-60) L 07/26/18 18:40 MCV 102.5 fl (81-100) H 07/26/18 18:40 MCH 35.4 pg (27.0-31.0) H 07/26/18 18:40 MCHC Differential 34.5 pg (28.0-36.0) 07/26/18 18:40 RDW 12.7 % (11.5-20.0) 07/26/18 18:40 Plt Count 236 Th/cmm (150-400) 07/26/18 18:40 MPV 10.1 fl 07/26/18 18:40 Neutrophils % 58.9 % (40.0-80.0) 07/26/18 18:40 Lymphocytes % 29.6 % (20.0-50.0) 07/26/18 18:40 Monocytes % 9.9 % (2.0-10.0) 07/26/18 18:40 Eosinophils % 1.3 % (0.0-5.0) 07/26/18 18:40 Basophils % 0.3 % (0.0-2.0) 07/26/18 18:40 PT 11.1 SECONDS (9.5-11.5) 07/26/18 18:40 INR 1.07 (0.5-1.4) 07/26/18 18:40 Sodium 137 mEq/L (136-145) 07/26/18 18:40 Potassium 4.4 mEq/L (3.5-5.1) 07/26/18 18:40 Chloride 103 mEq/L (98-107) 07/26/18 18:40 Carbon Dioxide 28.8 mEq/L (21.0-31.0) 07/26/18 18:40 Anion Gap 9.6 (7.0-16.0) 07/26/18 18:40 BUN 12 mg/dL (7-25) 07/26/18 18:40 Creatinine 0.6 mg/dL (0.6-1.2) 07/26/18 18:40 Est GFR ( Amer) TNP 07/26/18 18:40 Est GFR (Non-Af Amer) TNP 07/26/18 18:40 BUN/Creatinine Ratio 20.0 07/26/18 18:40 Glucose 111 mg/dL (70-105) H 07/26/18 18:40 Calcium 9.1 mg/dL (8.6-10.3) 07/26/18 18:40 Total Bilirubin 0.3 mg/dL (0.3-1.0) 07/26/18 18:40 AST 15 U/L (13-39) 07/26/18 18:40 ALT 8 U/L (7-52) 07/26/18 18:40 Alkaline Phosphatase 38 U/L (34-104) 07/26/18 18:40 Troponin I < 0.01 ng/mL (0.01-0.05) L 07/26/18 18:40 Total Protein 6.0 gm/dL (6.0-8.3) 07/26/18 18:40 Albumin 3.4 gm/dL (3.7-5.3) L 07/26/18 18:40 Globulin 2.6 gm/dL 07/26/18 18:40 Albumin/Globulin Ratio 1.3 (1.0-1.8) 07/26/18 18:40 Triglycerides 100 mg/dL (<150) 07/26/18 18:40 Cholesterol 190 mg/dL (<200) 07/26/18 18:40 LDL Cholesterol Direct 130 mg/dL (75-193) 07/26/18 18:40 HDL Cholesterol 50 mg/dL (23-92) 07/26/18 18:40 TSH 2.08 uIU/ml (0.34-5.60) 07/26/18 18:40 Urine Source CLEAN C 07/26/18 19:35 Urine Color YELLOW 07/26/18 19:35 Urine Clarity CLEAR (CLEAR) 07/26/18 19:35 Urine pH 8.0 (4.6 - 8.0) 07/26/18 19:35 Ur Specific [place] 1.015 (1.005-1.030) 07/26/18 19:35 Urine Protein NEGATIVE mg/dL (NEGATIVE) 07/26/18 19:35 Urine Glucose (UA) NEGATIVE mg/dL (NEGATIVE) 07/26/18 19:35 Urine Ketones NEGATIVE mg/dL (NEGATIVE) 07/26/18 19:35 Urine Blood NEGATIVE (NEGATIVE) 07/26/18 19:35 Urine Nitrate NEGATIVE (NEGATIVE) 07/26/18 19:35 Urine Bilirubin NEGATIVE (NEGATIVE) 07/26/18 19:35 Urine Urobilinogen 1.0 E.U./dL (0.2 - 1.0) 07/26/18 19:35 Ur Leukocyte Esterase TRACE (NEGATIVE) H 07/26/18 19:35 Urine RBC NONE SEEN /hpf (0-5) 07/26/18 19:35 Urine WBC 2-5 /hpf (0-5) 07/26/18 19:35 Ur Epithelial Cells FEW /lpf (FEW) 07/26/18 19:35 Urine Bacteria FEW /hpf (NONE SEEN) 07/26/18 19:35 Valproic Acid 43.6 ug/mL (50.0-100.0) L 07/26/18 18:40 Levetiracetam 10.4 ug/mL (10.0-40.0) 07/26/18 18:40 - Physical Exam Vitals and I&O: Vital Signs Temp 97.7 F 08/01/18 20:00 Pulse 71 08/01/18 20:00 Resp 18 08/01/18 20:00 BP 112/63 08/01/18 20:00 Pulse Ox 93 08/01/18 20:00 Intake & Output 08/01/18 08/01/18 08/02/18 06:59 18:59 06:59 Intake Total 120 1400 Balance 120 1400 Intake: Oral 120 1400 Other: # Voids 2 4 # Bowel Movements 1 Active Medications: Current Medications Acetaminophen (Tylenol) 650 mg PO Q4HR PRN PRN Reason: Pain (Mild) Stop: 09/24/18 21:11 Alendronate Sodium (Fosamax) 70 mg PO LUGO@0730 [facility] Stop: 09/30/18 08:29 Last Admin: 08/01/18 08:32 Dose: 70 mg Docusate Sodium (Colace) 100 mg PO BID [facility] Stop: 09/25/18 08:59 Last Admin: 08/01/18 17:31 Dose: 100 mg Donepezil HCl (Aricept) 10 mg PO HS [facility] Stop: 09/25/18 20:59 Last Admin: 08/01/18 21:14 Dose: 10 mg Levetiracetam (Keppra) 500 mg PO BID [facility] Stop: 09/25/18 08:59 Last Admin: 08/01/18 17:31 Dose: 500 mg Magnesium Hydroxide (Milk Of Magnesia) 30 ml PO DAILY PRN PRN Reason: Constipation Stop: 09/24/18 21:11 Modafinil (Provigil) 200 mg PO DAILY [facility]; Protocol Stop: 09/25/18 08:59 Last Admin: 08/01/18 08:32 Dose: 200 mg Oxybutynin Chloride (Ditropan Xl) 5 mg PO DAILY [facility] Stop: 09/25/18 08:59 Last Admin: 08/01/18 08:33 Dose: 5 mg Valproate Sodium (Depakene) 500 mg PO BID [facility]; Protocol Stop: 09/25/18 08:59 Last Admin: 08/01/18 17:30 Dose: 500 mg General: demented HEENT: NC/AT, PERRLA, EOMI, anicteric sclerae, throat clear Neck: Supple, No JVD, No thyromegaly, +2 carotid pulse wo bruit, No LAD Lungs: CTAB Cardiovascular: Normal S1, Normal S2, without murmur Abdomen: soft, non-tender, non-distended Extremities: clear Neurological: no change - Procedures Procedures: Procedures Procedure Code Date GROUP PSYCHOTHERAPY 75016 08/24/15 GROUP PSYCHOTHERAPY GZHZZZZ 08/24/15 INDIVID PSYCHOTHERAP NEC 94.39 02/21/09 OTHER GROUP THERAPY 94.44 02/21/09 RECREATIONAL THERAPY 93.81 02/21/09 Internal Medicine Assmt/Plan - Assessment Assessment: 1.SEIZURE DISORDER. 2.BLADDER DYSFUNCTION. 3.DEMENTIA. 4.PSYCHOSIS. - Plan Plan: CONTINUE ON CURRENT MEDICATION AND DIET. Nutritional Asmnt/Malnutr-PDOC - Dietary Evaluation Malnutrition Findings (Please click <Entered> for more info): Nutritional Asmnt/Malnutrition Start: 07/30/18 15: 46 Text: Status: Complete Freq: Protocol: Document 07/30/18 15:46 LCTAMARAG (Rec: 07/30/18 15:59 LCTAMARAG [id number]) Nutritional Asmnt/Malnutrition Patient General Information Nutritional Screening Moderate Risk Diagnosis psychosis NOS Pertinent Medical Hx/Surgical Hx seizure, dementia, bladder dysfunction, psychosis Subjective Information pt seen sitting up in bed at time of viist, fed by MEMBER SERVICES COORDINATOR. Pt appeared weak. Per EMR, PO intake 75-100%. Current Diet Order/ Nutrition Support mech soft ground JOVAN Pertinent Medications colace Pertinent Labs 07/26 glucose 111, alb 3.4 Nutritional Hx/Data Height 1.6 m Height (Calculated Centimeters) 160.0 Current Weight (lbs) 89.811 kg Weight (Calculated Kilograms) 89.8 Weight (Calculated Grams) 93522.3 [place] Body Weight 115 Body Mass Index (BMI) 35.0 Weight Status Obese GI Symptoms GI Symptoms None Last BM 07/27 Difficult in: None Skin Integrity/Comment: intact Current %PO Good (75-100%) Estimated Nutritional Goals BEE in Kcals: Adj wt of IBW Calories/Kcals/Kg 25-30 adj wt 62kg Kcals Calculated 4360-9766 Protein: Adj wt of IBW Protein g/k Protein Calculated 68 Fluid: ml 1550-1860ml (1ml/kcal) Nutritional Problem No current Nutrition Prob Problem N/A Malnutrition Alert Is there a minimum of two criteria No selected? Query Text:Check all the applicable criteria. A minimum of two criteria are recommended for diagnosis of either severe or non-severe malnutrition. Malnutrition Related to Morbid Obesity Malnutrition related to morbid obesity No Intervention/Recommendation Comments 1. Continue with cme soft ground JOVAN diet as ordered. Nurse to assist pt with meals. 2. Monitor PO intake, wt, labs and skin integrity 3. F/U as low risk in 7 days Expected Outcomes/Goals Expected Outcomes/Goals 1. PO intake to meet at least 75% of nutritional needs. 2. Wt stability, skin to remain intact, labs to approach WNL.
[2018-08-02] MEDS: Multivitamin w/ Minerals Tab PO SCH (09:45)
[2018-08-02] MEDS: Oxybutynin Chloride 5 mg ER Tab PO SCH ×2 (09:45→09:46)
--- NOTE | 2018-08-02 16:12 | General Progress Note ---
Subjective - Review of Systems Service Date: 08/02/18 Subjective: resting comfortably no distress Objective - Results Result Diagrams: 07/26/18 18:40 07/26/18 18:40 Recent Labs: Laboratory Last Values WBC 5.9 Th/cmm (4.8-10.8) 07/26/18 18:40 RBC 3.82 Mil/cmm (3.80-5.20) 07/26/18 18:40 Hgb 13.5 gm/dL (12-16) 07/26/18 18:40 Hct 39.2 % (41.0-60) L 07/26/18 18:40 MCV 102.5 fl (81-100) H 07/26/18 18:40 MCH 35.4 pg (27.0-31.0) H 07/26/18 18:40 MCHC Differential 34.5 pg (28.0-36.0) 07/26/18 18:40 RDW 12.7 % (11.5-20.0) 07/26/18 18:40 Plt Count 236 Th/cmm (150-400) 07/26/18 18:40 MPV 10.1 fl 07/26/18 18:40 Neutrophils % 58.9 % (40.0-80.0) 07/26/18 18:40 Lymphocytes % 29.6 % (20.0-50.0) 07/26/18 18:40 Monocytes % 9.9 % (2.0-10.0) 07/26/18 18:40 Eosinophils % 1.3 % (0.0-5.0) 07/26/18 18:40 Basophils % 0.3 % (0.0-2.0) 07/26/18 18:40 PT 11.1 SECONDS (9.5-11.5) 07/26/18 18:40 INR 1.07 (0.5-1.4) 07/26/18 18:40 Sodium 137 mEq/L (136-145) 07/26/18 18:40 Potassium 4.4 mEq/L (3.5-5.1) 07/26/18 18:40 Chloride 103 mEq/L (98-107) 07/26/18 18:40 Carbon Dioxide 28.8 mEq/L (21.0-31.0) 07/26/18 18:40 Anion Gap 9.6 (7.0-16.0) 07/26/18 18:40 BUN 12 mg/dL (7-25) 07/26/18 18:40 Creatinine 0.6 mg/dL (0.6-1.2) 07/26/18 18:40 Est GFR ( Amer) TNP 07/26/18 18:40 Est GFR (Non-Af Amer) TNP 07/26/18 18:40 BUN/Creatinine Ratio 20.0 07/26/18 18:40 Glucose 111 mg/dL (70-105) H 07/26/18 18:40 Calcium 9.1 mg/dL (8.6-10.3) 07/26/18 18:40 Total Bilirubin 0.3 mg/dL (0.3-1.0) 07/26/18 18:40 AST 15 U/L (13-39) 07/26/18 18:40 ALT 8 U/L (7-52) 07/26/18 18:40 Alkaline Phosphatase 38 U/L (34-104) 07/26/18 18:40 Troponin I < 0.01 ng/mL (0.01-0.05) L 07/26/18 18:40 Total Protein 6.0 gm/dL (6.0-8.3) 07/26/18 18:40 Albumin 3.4 gm/dL (3.7-5.3) L 07/26/18 18:40 Globulin 2.6 gm/dL 07/26/18 18:40 Albumin/Globulin Ratio 1.3 (1.0-1.8) 07/26/18 18:40 Triglycerides 100 mg/dL (<150) 07/26/18 18:40 Cholesterol 190 mg/dL (<200) 07/26/18 18:40 LDL Cholesterol Direct 130 mg/dL (75-193) 07/26/18 18:40 HDL Cholesterol 50 mg/dL (23-92) 07/26/18 18:40 TSH 2.08 uIU/ml (0.34-5.60) 07/26/18 18:40 Urine Source CLEAN C 07/26/18 19:35 Urine Color YELLOW 07/26/18 19:35 Urine Clarity CLEAR (CLEAR) 07/26/18 19:35 Urine pH 8.0 (4.6 - 8.0) 07/26/18 19:35 Ur Specific [place] 1.015 (1.005-1.030) 07/26/18 19:35 Urine Protein NEGATIVE mg/dL (NEGATIVE) 07/26/18 19:35 Urine Glucose (UA) NEGATIVE mg/dL (NEGATIVE) 07/26/18 19:35 Urine Ketones NEGATIVE mg/dL (NEGATIVE) 07/26/18 19:35 Urine Blood NEGATIVE (NEGATIVE) 07/26/18 19:35 Urine Nitrate NEGATIVE (NEGATIVE) 07/26/18 19:35 Urine Bilirubin NEGATIVE (NEGATIVE) 07/26/18 19:35 Urine Urobilinogen 1.0 E.U./dL (0.2 - 1.0) 07/26/18 19:35 Ur Leukocyte Esterase TRACE (NEGATIVE) H 07/26/18 19:35 Urine RBC NONE SEEN /hpf (0-5) 07/26/18 19:35 Urine WBC 2-5 /hpf (0-5) 07/26/18 19:35 Ur Epithelial Cells FEW /lpf (FEW) 07/26/18 19:35 Urine Bacteria FEW /hpf (NONE SEEN) 07/26/18 19:35 Valproic Acid 43.6 ug/mL (50.0-100.0) L 07/26/18 18:40 Levetiracetam 10.4 ug/mL (10.0-40.0) 07/26/18 18:40 - Physical Exam Vitals and I&O: Vital Signs Temp 98.6 F 08/02/18 14:00 Pulse 74 08/02/18 14:00 Resp 19 08/02/18 14:00 BP 103/59 08/02/18 14:00 Pulse Ox 97 08/02/18 14:00 Intake & Output 08/01/18 08/02/18 08/02/18 18:59 06:59 18:59 Intake Total 1400 Balance 1400 Intake: Oral 1400 Other: # Voids 4 # Bowel Movements 1 Active Medications: Current Medications Acetaminophen (Tylenol) 650 mg PO Q4HR PRN PRN Reason: Pain (Mild) Stop: 09/24/18 21:11 Alendronate Sodium (Fosamax) 70 mg PO LUGO@0730 [facility] Stop: 09/30/18 08:29 Last Admin: 08/01/18 08:32 Dose: 70 mg Docusate Sodium (Colace) 100 mg PO BID [facility] Stop: 09/25/18 08:59 Last Admin: 08/02/18 09:46 Dose: 100 mg Donepezil HCl (Aricept) 10 mg PO HS [facility] Stop: 09/25/18 20:59 Last Admin: 08/01/18 21:14 Dose: 10 mg Levetiracetam (Keppra) 500 mg PO BID [facility] Stop: 09/25/18 08:59 Last Admin: 08/02/18 09:46 Dose: 500 mg Magnesium Hydroxide (Milk Of Magnesia) 30 ml PO DAILY PRN PRN Reason: Constipation Stop: 09/24/18 21:11 Memantine (Namenda) 5 mg PO DAILY [facility] Stop: 10/02/18 08:59 Modafinil (Provigil) 200 mg PO DAILY [facility]; Protocol Stop: 09/25/18 08:59 Last Admin: 08/02/18 09:45 Dose: 200 mg Oxybutynin Chloride (Ditropan Xl) 5 mg PO DAILY [facility] Stop: 09/25/18 08:59 Last Admin: 08/02/18 09:46 Dose: 5 mg Valproate Sodium (Depakene) 500 mg PO BID [facility]; Protocol Stop: 09/25/18 08:59 Last Admin: 08/02/18 09:46 Dose: 500 mg General: No acute distress HEENT: Atraumatic Neck: Supple, JVD Cardiovascular: Regular rate, Normal S1, Normal S2 Lungs: Clear to auscultation Abdomen: Bowel sounds, Soft - Procedures Procedures: Procedures Procedure Code Date GROUP PSYCHOTHERAPY 28159 08/24/15 GROUP PSYCHOTHERAPY GZHZZZZ 08/24/15 INDIVID PSYCHOTHERAP NEC 94.39 02/21/09 OTHER GROUP THERAPY 94.44 02/21/09 RECREATIONAL THERAPY 93.81 02/21/09 Assessment/Plan - Problem List Patient Problems: All Active Problems AGITATION WITH CONFUSION AND ELOPE RISK (Acute) - Assessment Assessment: 1.SEIZURE DISORDER. 2.BLADDER DYSFUNCTION. 3.DEMENTIA. 4.PSYCHOSIS. - Plan Plan: continue current treatment Nutritional Asmnt/Malnutr-PDOC - Dietary Evaluation Malnutrition Findings (Please click <Entered> for more info): Nutritional Asmnt/Malnutrition Start: 07/30/18 15: 46 Text: Status: Complete Freq: Protocol: Document 07/30/18 15:46 LCHENG (Rec: 07/30/18 15:59 LCTAMARAG [id number]) Nutritional Asmnt/Malnutrition Patient General Information Nutritional Screening Moderate Risk Diagnosis psychosis NOS Pertinent Medical Hx/Surgical Hx seizure, dementia, bladder dysfunction, psychosis Subjective Information pt seen sitting up in bed at time of viist, fed by TEST DESKMAN. Pt appeared weak. Per EMR, PO intake 75-100%. Current Diet Order/ Nutrition Support mech soft ground JOVAN Pertinent Medications colace Pertinent Labs 07/26 glucose 111, alb 3.4 Nutritional Hx/Data Height 1.6 m Height (Calculated Centimeters) 160.0 Current Weight (lbs) 89.811 kg Weight (Calculated Kilograms) 89.8 Weight (Calculated Grams) 70832.3 [place] Body Weight 115 Body Mass Index (BMI) 35.0 Weight Status Obese GI Symptoms GI Symptoms None Last BM 07/27 Difficult in: None Skin Integrity/Comment: intact Current %PO Good (75-100%) Estimated Nutritional Goals BEE in Kcals: Adj wt of IBW Calories/Kcals/Kg 25-30 adj wt 62kg Kcals Calculated 4282-4512 Protein: Adj wt of IBW Protein g/k Protein Calculated 68 Fluid: ml 1550-1860ml (1ml/kcal) Nutritional Problem No current Nutrition Prob Problem N/A Malnutrition Alert Is there a minimum of two criteria No selected? Query Text:Check all the applicable criteria. A minimum of two criteria are recommended for diagnosis of either severe or non-severe malnutrition. Malnutrition Related to Morbid Obesity Malnutrition related to morbid obesity No Intervention/Recommendation Comments 1. Continue with [facility] soft ground JOVAN diet as ordered. Nurse to assist pt with meals. 2. Monitor PO intake, wt, labs and skin integrity 3. F/U as low risk in 7 days Expected Outcomes/Goals Expected Outcomes/Goals 1. PO intake to meet at least 75% of nutritional needs. 2. Wt stability, skin to remain intact, labs to approach WNL.
--- NOTE | 2018-08-02 23:38 | Progress Notes ---
DATE: 08/02/2018 SUBJECTIVE: The patient coming in from [place], increased confusion, agitation, history of narcolepsy, needing a near constant redirection and prompting, very confused, disoriented, poor historian, able to verbalize her needs. The patient remains impulsive, unpredictable, very forgetful; however, staff has to redirect her. The patient remains impulsive, unpredictable. However, she is somewhat calmer, more amenable to treatment. Medications were noted including dosages and frequencies. ASSESSMENT: The patient remains symptomatic, confused, impulsive. PLAN: We will continue to monitor. Continue Provigil, Aricept. Consider dosing of Namenda. JOB# [id number]
[2018-08-03] MEDS: Multivitamin w/ Minerals Tab PO SCH (08:50)
[2018-08-03] MEDS: Oxybutynin Chloride 5 mg ER Tab PO SCH (08:50)
--- NOTE | 2018-08-03 18:50 | General Progress Note ---
Subjective - Review of Systems Service Date: 08/03/18 Subjective: resting comfortably no distress Objective - Results Result Diagrams: 07/26/18 18:40 07/26/18 18:40 Recent Labs: Laboratory Last Values WBC 5.9 Th/cmm (4.8-10.8) 07/26/18 18:40 RBC 3.82 Mil/cmm (3.80-5.20) 07/26/18 18:40 Hgb 13.5 gm/dL (12-16) 07/26/18 18:40 Hct 39.2 % (41.0-60) L 07/26/18 18:40 MCV 102.5 fl (81-100) H 07/26/18 18:40 MCH 35.4 pg (27.0-31.0) H 07/26/18 18:40 MCHC Differential 34.5 pg (28.0-36.0) 07/26/18 18:40 RDW 12.7 % (11.5-20.0) 07/26/18 18:40 Plt Count 236 Th/cmm (150-400) 07/26/18 18:40 MPV 10.1 fl 07/26/18 18:40 Neutrophils % 58.9 % (40.0-80.0) 07/26/18 18:40 Lymphocytes % 29.6 % (20.0-50.0) 07/26/18 18:40 Monocytes % 9.9 % (2.0-10.0) 07/26/18 18:40 Eosinophils % 1.3 % (0.0-5.0) 07/26/18 18:40 Basophils % 0.3 % (0.0-2.0) 07/26/18 18:40 PT 11.1 SECONDS (9.5-11.5) 07/26/18 18:40 INR 1.07 (0.5-1.4) 07/26/18 18:40 Sodium 137 mEq/L (136-145) 07/26/18 18:40 Potassium 4.4 mEq/L (3.5-5.1) 07/26/18 18:40 Chloride 103 mEq/L (98-107) 07/26/18 18:40 Carbon Dioxide 28.8 mEq/L (21.0-31.0) 07/26/18 18:40 Anion Gap 9.6 (7.0-16.0) 07/26/18 18:40 BUN 12 mg/dL (7-25) 07/26/18 18:40 Creatinine 0.6 mg/dL (0.6-1.2) 07/26/18 18:40 Est GFR ( Amer) TNP 07/26/18 18:40 Est GFR (Non-Af Amer) TNP 07/26/18 18:40 BUN/Creatinine Ratio 20.0 07/26/18 18:40 Glucose 111 mg/dL (70-105) H 07/26/18 18:40 Calcium 9.1 mg/dL (8.6-10.3) 07/26/18 18:40 Total Bilirubin 0.3 mg/dL (0.3-1.0) 07/26/18 18:40 AST 15 U/L (13-39) 07/26/18 18:40 ALT 8 U/L (7-52) 07/26/18 18:40 Alkaline Phosphatase 38 U/L (34-104) 07/26/18 18:40 Troponin I < 0.01 ng/mL (0.01-0.05) L 07/26/18 18:40 Total Protein 6.0 gm/dL (6.0-8.3) 07/26/18 18:40 Albumin 3.4 gm/dL (3.7-5.3) L 07/26/18 18:40 Globulin 2.6 gm/dL 07/26/18 18:40 Albumin/Globulin Ratio 1.3 (1.0-1.8) 07/26/18 18:40 Triglycerides 100 mg/dL (<150) 07/26/18 18:40 Cholesterol 190 mg/dL (<200) 07/26/18 18:40 LDL Cholesterol Direct 130 mg/dL (75-193) 07/26/18 18:40 HDL Cholesterol 50 mg/dL (23-92) 07/26/18 18:40 TSH 2.08 uIU/ml (0.34-5.60) 07/26/18 18:40 Urine Source CLEAN C 07/26/18 19:35 Urine Color YELLOW 07/26/18 19:35 Urine Clarity CLEAR (CLEAR) 07/26/18 19:35 Urine pH 8.0 (4.6 - 8.0) 07/26/18 19:35 Ur Specific [place] 1.015 (1.005-1.030) 07/26/18 19:35 Urine Protein NEGATIVE mg/dL (NEGATIVE) 07/26/18 19:35 Urine Glucose (UA) NEGATIVE mg/dL (NEGATIVE) 07/26/18 19:35 Urine Ketones NEGATIVE mg/dL (NEGATIVE) 07/26/18 19:35 Urine Blood NEGATIVE (NEGATIVE) 07/26/18 19:35 Urine Nitrate NEGATIVE (NEGATIVE) 07/26/18 19:35 Urine Bilirubin NEGATIVE (NEGATIVE) 07/26/18 19:35 Urine Urobilinogen 1.0 E.U./dL (0.2 - 1.0) 07/26/18 19:35 Ur Leukocyte Esterase TRACE (NEGATIVE) H 07/26/18 19:35 Urine RBC NONE SEEN /hpf (0-5) 07/26/18 19:35 Urine WBC 2-5 /hpf (0-5) 07/26/18 19:35 Ur Epithelial Cells FEW /lpf (FEW) 07/26/18 19:35 Urine Bacteria FEW /hpf (NONE SEEN) 07/26/18 19:35 Valproic Acid 43.6 ug/mL (50.0-100.0) L 07/26/18 18:40 Levetiracetam 10.4 ug/mL (10.0-40.0) 07/26/18 18:40 - Physical Exam Vitals and I&O: Vital Signs Temp 97.4 F 08/03/18 14:00 Pulse 71 08/03/18 14:00 Resp 20 08/03/18 14:00 BP 114/54 08/03/18 14:00 Pulse Ox 97 08/03/18 14:00 Intake & Output 08/02/18 08/03/18 08/03/18 18:59 06:59 18:59 Intake Total 1250 300 700 Balance 1250 300 700 Intake: Oral 1250 300 700 Other: # Voids 2 3 # Bowel Movements 0 0 Active Medications: Current Medications Acetaminophen (Tylenol) 650 mg PO Q4HR PRN PRN Reason: Pain (Mild) Stop: 09/24/18 21:11 Alendronate Sodium (Fosamax) 70 mg PO LUGO@0730 [facility] Stop: 09/30/18 08:29 Last Admin: 08/01/18 08:32 Dose: 70 mg Docusate Sodium (Colace) 100 mg PO BID [facility] Stop: 09/25/18 08:59 Last Admin: 08/03/18 16:30 Dose: 100 mg Donepezil HCl (Aricept) 10 mg PO HS [facility] Stop: 09/25/18 20:59 Last Admin: 08/02/18 20:26 Dose: 10 mg Levetiracetam (Keppra) 500 mg PO BID [facility] Stop: 09/25/18 08:59 Last Admin: 08/03/18 16:30 Dose: 500 mg Magnesium Hydroxide (Milk Of Magnesia) 30 ml PO DAILY PRN PRN Reason: Constipation Stop: 09/24/18 21:11 Memantine (Namenda) 5 mg PO DAILY [facility] Stop: 10/02/18 08:59 Last Admin: 08/03/18 08:50 Dose: 5 mg Modafinil (Provigil) 200 mg PO DAILY [facility]; Protocol Stop: 09/25/18 08:59 Last Admin: 08/03/18 08:50 Dose: 200 mg Oxybutynin Chloride (Ditropan Xl) 5 mg PO DAILY [facility] Stop: 09/25/18 08:59 Last Admin: 08/03/18 08:50 Dose: 5 mg Valproate Sodium (Depakene) 500 mg PO BID [facility]; Protocol Stop: 09/25/18 08:59 Last Admin: 08/03/18 16:30 Dose: 500 mg General: No acute distress HEENT: Atraumatic Neck: Supple, JVD Cardiovascular: Regular rate, Normal S1, Normal S2 Lungs: Clear to auscultation Abdomen: Bowel sounds, Soft - Procedures Procedures: Procedures Procedure Code Date GROUP PSYCHOTHERAPY 88039 08/24/15 GROUP PSYCHOTHERAPY [id number] 08/24/15 INDIVID PSYCHOTHERAP NEC 94.39 02/21/09 OTHER GROUP THERAPY 94.44 02/21/09 RECREATIONAL THERAPY 93.81 02/21/09 Assessment/Plan - Problem List Patient Problems: All Active Problems AGITATION WITH CONFUSION AND ELOPE RISK (Acute) - Assessment Assessment: 1.SEIZURE DISORDER. 2.BLADDER DYSFUNCTION. 3.DEMENTIA. 4.PSYCHOSIS. - Plan Plan: continue current treatment Nutritional Asmnt/Malnutr-PDOC - Dietary Evaluation Malnutrition Findings (Please click <Entered> for more info): Nutritional Asmnt/Malnutrition Start: 07/30/18 15: 46 Text: Status: Complete Freq: Protocol: Document 07/30/18 15:46 LCTAMARAG (Rec: 07/30/18 15:59 LCKENNETH [id number]) Nutritional Asmnt/Malnutrition Patient General Information Nutritional Screening Moderate Risk Diagnosis psychosis NOS Pertinent Medical Hx/Surgical Hx seizure, dementia, bladder dysfunction, psychosis Subjective Information pt seen sitting up in bed at time of viist, fed by MAINTENA[employer]CE [employer]IST. Pt appeared weak. Per EMR, PO intake 75-100%. Current Diet Order/ Nutrition Support [facility] soft ground JOVAN Pertinent Medications colace Pertinent Labs 07/26 glucose 111, alb 3.4 Nutritional Hx/Data Height 1.6 m Height (Calculated Centimeters) 160.0 Current Weight (lbs) 89.811 kg Weight (Calculated Kilograms) 89.8 Weight (Calculated Grams) 22592.3 [place] Body Weight 115 Body Mass Index (BMI) 35.0 Weight Status Obese GI Symptoms GI Symptoms None Last BM 07/27 Difficult in: None Skin Integrity/Comment: intact Current %PO Good (75-100%) Estimated Nutritional Goals BEE in Kcals: Adj wt of IBW Calories/Kcals/Kg 25-30 adj wt 62kg Kcals Calculated 5944-9601 Protein: Adj wt of IBW Protein g/k Protein Calculated 68 Fluid: ml 1550-1860ml (1ml/kcal) Nutritional Problem No current Nutrition Prob Problem N/A Malnutrition Alert Is there a minimum of two criteria No selected? Query Text:Check all the applicable criteria. A minimum of two criteria are recommended for diagnosis of either severe or non-severe malnutrition. Malnutrition Related to Morbid Obesity Malnutrition related to morbid obesity No Intervention/Recommendation Comments 1. Continue with [facility] soft ground JOVAN diet as ordered. Nurse to assist pt with meals. 2. Monitor PO intake, wt, labs and skin integrity 3. F/U as low risk in 7 days Expected Outcomes/Goals Expected Outcomes/Goals 1. PO intake to meet at least 75% of nutritional needs. 2. Wt stability, skin to remain intact, labs to approach WNL.
--- NOTE | 2018-08-03 20:43 | Progress Notes ---
DATE: 08/03/2018 SUBJECTIVE: The patient coming in from [place], worsening confusion, history of narcolepsy, confused on exam, putting food in her drink and eating her food and drink together, odd behaviors, disorganized behaviors, confusion ongoing, impulsive, unpredictable, but somewhat more sociable, somewhat more engaged, still remains irritable, ongoing concerns about her behaviors. Medications were reviewed. ASSESSMENT: The patient remains symptomatic, disorganized, odd behaviors, recent start of [place]. PLAN: We will continue to monitor. Continued to monitor closely for any behavioral disturbances. [facility]# [id number]
[2018-08-04] MEDS: Multivitamin w/ Minerals Tab PO SCH (08:18)
[2018-08-04] MEDS: Oxybutynin Chloride 5 mg ER Tab PO SCH (08:18)
--- NOTE | 2018-08-04 12:59 | Discharge Summary ---
DATE OF DISCHARGE: 08/04/2018 IDENTIFYING INFORMATION: The patient is a 78-year-old female. CHIEF COMPLAINT: Agitation and confusion. HISTORY OF PRESENT ILLNESS: She is referred from [facility] because of increasing agitation and because of confusion the patient also tried to leave the facility and became agitated when staff tried to stop her. The patient also has a history of narcolepsy, has been uncooperative with treatment. She also has been confused. She is demented, restless, still needs close monitoring with a history of dementia, depression, and narcolepsy. COURSE IN THE HOSPITAL: She was continued with her medication, which was Provigil for her narcolepsy 200 mg daily. Namenda was added 5 mg daily, continue with the Aricept 10 mg at bedtime, ____ Keppra 500 mg twice a day and also Depakote was added 500 mg twice a day, oxybutynin was continued and multivitamins. The patient progressively got better. She is demented, confused, so she got her basic level of functioning. She was not acting anyway dangerous, so though she is still confused and demented, we felt this is her basic level of function and can be discharged to a lesser level of care. 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 MEDICAL DIAGNOSES: Narcolepsy, seizure disorder, bladder dysfunction. The patient would be going back to [place]. I will follow up with the patient there as well as Dr. Alexandra. EXPECTED OUTCOME: Stable. JOB# [id number]
== END 2018-08-04 17:35 | DRG 885 ==
LOC: ER 18:14 → GERO 19:29
PROVIDERS: ADMIT Psychiatry & Neurology Psychiatry; ATTEND Psychiatry & Neurology Psychiatry
DX: F29 Unspecified psychosis not due to a substance or known physiological condition (principal); F03.91 Unspecified dementia, unspecified severity, with behavioral disturbance; G40.909 Epilepsy, unspecified, not intractable, without status epilepticus; M19.90 Unspecified osteoarthritis, unspecified site; N31.9 Neuromuscular dysfunction of bladder, unspecified; Z88.1 Allergy status to other antibiotic agents; Z88.8 Allergy status to other drugs, medicaments and biological substances
CPT/HCPCS: 36415-UA; 71045-TC; 80053-TC; 80061-TC; 80164-TC; 80299-90; 81001-TC; 83036-90; 84443-TC; 84484-TC; 85025-TC; 85610-TC; 93005; G0410; Z7610